=== PATIENT | female | born 1955 | race Caucasian/White ===

== ENCOUNTER 2019-10-29 09:46 | Outpatient (RCR) | payer MEDICARE, SELFPAY | END 2019-11-02 00:01 | LOC: ONCMED 09:46 | PROVIDERS: Family Provider Family Medicine; Visit Provider Nurse Practitioner | DX: C92.10 Chronic myeloid leukemia, BCR/ABL-positive, not having achieved remission (principal); D69.59 Other secondary thrombocytopenia; D64.81 Anemia due to antineoplastic chemotherapy; T45.1X5A Adverse effect of antineoplastic and immunosuppressive drugs, initial encounter; K52.9 Noninfective gastroenteritis and colitis, unspecified; I10 Essential (primary) hypertension; E78.5 Hyperlipidemia, unspecified; E11.9 Type 2 diabetes mellitus without complications; N28.9 Disorder of kidney and ureter, unspecified; I25.10 Atherosclerotic heart disease of native coronary artery without angina pectoris; I35.0 Nonrheumatic aortic (valve) stenosis; Z95.2 Presence of prosthetic heart valve ==

== ENCOUNTER 2019-11-18 11:35 | Outpatient (RCR) | payer MEDICARE, SELFPAY ==
[2019-11-11 14:27] LABS: Basophils % 0.3 %; Eosinophils # 0.4 10^3/uL (0.0-0.8); Eosinophils % 4.4 %; Hematocrit 31.4 % (37.0-47.0); Hemoglobin 10.5 g/dL (11.5-15.3); Lymphocytes # 3.9 10^3/uL (0.8-4.8); Lymphocytes % 42.8 %; Mean Corpuscular HGB Conc 33.4 g/dL (30.0-36.0); Mean Corpuscular Hemoglobin 32.5 pg (28.0-34.0); Mean Corpuscular Volume 97.2 fL (81-99); Mean Platelet Volume 9.6 fL (7.4-10.4); Monocytes # 0.8 10^3/uL (0.2-0.9); Monocytes % 8.9 %; Neutrophils # 3.9 10^3/uL (1.8-7.7); Neutrophils % 43.4 %; Nucleated Red Blood Cells % 0 %; Platelet Count 105 10^3/cmm (130-400); Red Blood Count 3.23 10^6/uL (4.1-5.3); Red Cell Distribution Width 12.9 % (12.1-15.1); White Blood Count 9.1 10^3/uL (4.0-10.0)
[2019-11-18 13:24] LABS: Basophils % 0.4 %; Eosinophils # 0.6 10^3/uL (0.0-0.8); Eosinophils % 5.6 %; Hematocrit 32.6 % (37.0-47.0); Hemoglobin 11.1 g/dL (11.5-15.3); Lymphocytes # 4.4 10^3/uL (0.8-4.8); Lymphocytes % 44.6 %; Mean Corpuscular Hemoglobin 33.8 pg (28.0-34.0); Mean Corpuscular Volume 99.4 fL (81-99); Monocytes # 0.9 10^3/uL (0.2-0.9); Monocytes % 9.1 %; Neutrophils % 40.2 %; Nucleated Red Blood Cells % 0 %; Platelet Count 119 10^3/cmm (130-400); Red Blood Count 3.28 10^6/uL (4.1-5.3); Red Cell Distribution Width 12.9 % (12.1-15.1); White Blood Count 9.9 10^3/uL (4.0-10.0)
== END 2019-12-03 23:59 | disposition home or self-care (01) ==
LOC: ONCMED 11:35
PROVIDERS: Family Provider Family Medicine; PCP Family Medicine; Visit Provider Nurse Practitioner
DX: C92.10 Chronic myeloid leukemia, BCR/ABL-positive, not having achieved remission (principal)
CPT/HCPCS: 85025

== ENCOUNTER 2020-06-21 06:39 | Outpatient (CLI) | payer MEDICARE, SELFPAY ==
--- NOTE | 2020-06-21 07:01 | USCV_ITS ---
Mitzi Gutierrez Age: 65 Gender: F : 1955 Exam Date: 06/21/2020 07:33 Ordering Phys: Eber Cheema MD ([email or web address]) Technologist: Suzette Riley Exam Location: [facility] – [place] Indication: AO VALVE REPLACED BP: 120 / 60 HR: 62 Rhythm: Sinus Technical Quality: Adequate MEASUREMENTS (Male / Female) Normal Values 2D ECHO LV Diastolic Diameter PLAX 3.4 cm 4.2 - 5.9 / 3.9 - 5.3 cm LV Systolic Diameter PLAX 2.0 cm LV Chamber Size 2.7 cm IVS Diastolic Thickness 1.2 cm 0.6 - 1.0 / 0.6 - 0.9 cm IVS Systolic Thickness 1.6 cm LVPW Diastolic Thickness 1.3 cm 0.6 - 1.0 / 0.6 - 0.9 cm LVPW Systolic Thickness 1.3 cm RV Chamber Size 2.1 cm LVOT Diameter 2.0 cm LV Ejection Fraction 2D Teich 73.8 % LV Ejection Fraction MOD 2C 49.3 % LV Ejection Fraction 2C AL 50.1 % LA Diameter 4.2 cm LA Width 2.1 cm LA Height 4.0 cm RA Width 2.6 cm RA Height 4.0 cm Aorta at Sinotubular Diameter 2.4 cm M-MODE LV Diastolic Diameter MM 3.8 cm 4.2 - 5.9 / 3.9 - 5.3 cm LV Systolic Diameter MM 2.5 cm LV Ejection Fraction MM Teich 62.8 % IVS Diastolic Thickness MM 0.9 cm 0.6 - 1.0 / 0.6 - 0.9 cm IVS Systolic Thickness MM 1.3 cm LVPW Diastolic Thickness MM 1.1 cm 0.6 - 1.0 / 0.6 - 0.9 cm LVPW Systolic Thickness MM 1.5 cm RV Diastolic Diameter MM 1.6 cm Aortic Annulus Diameter 2.3 cm LA Ao Ratio MM 1.5 MV E Point Septal Separation 0.2 cm DOPPLER AV Peak Velocity 80.0 cm/s LVOT Peak Velocity 74.0 cm/s AV Area Cont Eq vti 2.7 cm squared AV Area Cont Eq pk 3.0 cm squared MV Area PHT 3.0 cm squared Mitral E to A Ratio 1.3 MV E' Velocity 9.0 cm/s Mitral E to MV E' Ratio 19.0 Mitral E to LV E' Lateral Ratio 16.2 Mitral E to LV E' Septal Ratio 23.0 TR Peak Velocity 188.2 cm/s TR Peak Gradient 14.2 mmHg TR Mean Velocity 132.7 cm/s TR Mean Gradient 7.7 mmHg TR Velocity Time Integral 68.0 cm TV Peak E Velocity 70.0 cm/s Right Atrial Pressure 3.0 mmHg Pulmonary Artery Systolic Pressu 17.2 mmHg PV Peak Velocity 51.0 cm/s RV Acceleration Time 0.2 s RV Ejection Time 0.4 s RV AcT/ET 0.6 FINDINGS Left Ventricle Normal left ventricular cavity size. Normal left ventricular systolic function. No regional wall motion abnormalities. Left ventricular ejection fraction is estimated at 55 %. Grade II/IV diastolic dysfunction, moderately elevated filling pressures. Right Ventricle The right ventricle is normal in size and function. Right Atrium The right atrium is normal in size. Left Atrium The left atrium is normal in size. Mitral Valve Moderately thickened mitral valve. No mitral valve stenosis. Moderate mitral valve regurgitation. Aortic Valve Moderate aortic valve calcification. No aortic valve stenosis. Mild aortic valve regurgitation. Tricuspid Valve Moderate tricuspid valve regurgitation. Pulmonic Valve Structurally normal pulmonic valve without significant stenosis. There is no pulmonic regurgitation. Pericardium Normal pericardium without effusion. Aorta Normal ascending aorta dimension. CONCLUSIONS 1-Normal left ventricular cavity size. Normal left ventricular systolic function. No regional wall motion abnormalities. Left ventricular ejection fraction is estimated at 55 %. Grade II/IV diastolic dysfunction, moderately elevated filling pressures. 2-Moderately thickened mitral valve. No mitral valve stenosis. Moderate mitral valve regurgitation. 3-Moderate aortic valve calcification. No aortic valve stenosis. Mild aortic valve regurgitation. 4-Moderate tricuspid valve regurgitation. 5-There is no pericardial effusion. 6-Pulmonary artery systolic pressure is within normal limits. 7-Right atrial pressure is around 5 mm of mercury. 8-No significant change since the prior echocardiogram study of 07/13/2015. Eber Cheema MD (Electronically Signed) Final Date: 21 June 2020 18:45 S
== END 2020-06-21 06:40 | disposition home or self-care (01) ==
PROVIDERS: PCP Family Medicine; Visit Provider Internal Medicine Cardiovascular Disease
DX: Z95.2 Presence of prosthetic heart valve (principal); I08.3 Combined rheumatic disorders of mitral, aortic and tricuspid valves
CPT/HCPCS: 93306

== ENCOUNTER 2020-09-25 12:35 | Outpatient (CLI) | payer MEDICARE, SELFPAY ==
[2020-09-25 13:45] LABS: Basophils % 0.2 %; Eosinophils # 0.4 10^3/uL (0.0-0.8); Eosinophils % 4.2 %; Hematocrit 32.7 % (37.0-47.0); Hemoglobin 10.6 g/dL (11.5-15.3); Lymphocytes % 56.3 %; Mean Corpuscular HGB Conc 32.4 g/dL (30.0-36.0); Mean Corpuscular Hemoglobin 30.2 pg (28.0-34.0); Mean Corpuscular Volume 93.2 fL (81-99); Mean Platelet Volume 8.9 fL (7.4-10.4); Monocytes # 0.9 10^3/uL (0.2-0.9); Monocytes % 10.5 %; Neutrophils # 2.52 10^3/uL (1.8-7.7); Neutrophils % 28.6 %; Nucleated Red Blood Cells % 0 %; Platelet Count 125 10^3/cmm (130-400); Red Blood Count 3.51 10^6/uL (4.1-5.3); Red Cell Distribution Width 14.5 % (12.1-15.1); White Blood Count 8.8 10^3/uL (4.0-10.0)
[2020-09-25 14:06] LABS: Alanine Aminotransferase 42 U/L (0-33); Alkaline Phosphatase 94 IU/L (35-105); Anion Gap 13.2 (5-19); Aspartate Amino Transferase 39 U/L (0-32); Blood Urea Nitrogen 20 mg/dL (8-23); Calcium 8.7 mg/dL (8.5-10.5); Carbon Dioxide 27 mmol/L (22-29); Chloride 102 mmol/L (98-107); Globulin 2.3 g/dL (1.3-4.6); Glomerular Filtration Rate 45.1 mL/min (90-130); Glucose 202 mg/dL (65-115); Osmolality Calculated 294 mOsm/kg (285-295); Potassium 4.2 mmol/L (3.5-5.1); Sodium 138 mmol/L (136-145); Total Bilirubin 0.4 mg/dL (0.15-1.2); Total Protein 6.3 g/dL (6.6-8.7)
[2020-09-30 16:22] LABS: BCR ABL1 (IS) 0.006 %; P210 BCR ALB1 Detected; Prior Results See Report
== END 2020-09-25 12:36 | disposition home or self-care (01) ==
LOC: ONCMED 13:37
PROVIDERS: PCP Family Medicine; Visit Provider Internal Medicine Medical Oncology
DX: C92.10 Chronic myeloid leukemia, BCR/ABL-positive, not having achieved remission (principal); Z51.81 Encounter for therapeutic drug level monitoring; Z79.899 Other long term (current) drug therapy
CPT/HCPCS: 80053; 81206; 85025

== ENCOUNTER 2020-09-26 13:40 | Outpatient (CLI) | payer MEDICARE, SELFPAY ==
--- NOTE | 2020-09-30 21:26 | ONC FU_ITS ---
[facility] Patient Note Patient: Mitzi Gutierrez Unit #: [id number]: 1955 Dictated By: Neva DockeryDate of Visit: Sep 26, 2020 Onc MED Follow-Up/Prog Note Chief Complaint: Chronic myeloid leukemia. History of Present Illness: Ms Gutierrez is a 65 year-old woman with Meigs chromosome positive chronic myeloid leukemia. She had scheduled laboratory studies with Dr. Collins on 03/04/2019. Her CBC showed normal hemoglobin at 13.4 g with hematocrit 40.6%. The WBC was elevated at 47,600. The differential included 43% neutrophils, 19% bands, 13% metamyelocytes, 5% myelocytes, 1% promyelocytes, 7% lymphocytes, 1% monocytes, 7% eosinophils, 3% basophils, and 1% blasts. The platelet count was mildly elevated 517,000. The differential report also included presence of giant platelets. Her comprehensive metabolic profile showed borderline renal function with BUN 26 and creatinine 1.28 mg/dL. Bilirubin was normal at 0.7 mg/dL with normal liver enzymes. Dr Leger had seen her initially on 03/12/2019. A FISH study was positive for BCR/abl. Bone marrow aspiration/biopsy on 04/08/2019 was consistent with chronic myeloid leukemia. The marrow was hypercellular at 100%. On the chromosome analysis the Meigs chromosome was present in 65% of metaphase cells analyzed. The quantitative PCR for BCR/abl was 50.224%. She began treatment with hydroxyurea and alloupurinol. The hydroxyurea was put on hold as of 04/15/2019 at which point her white blood cell count had decreased to 1200. Her hemoglobin was down slightly, to 11.2 g. The platelet count had decreased to 313,000. She also stopped the allopurinol due to development of a skin eruption. During subsequent follow-up there was gradual recovery of her blood counts. As of 05/17/2019 the hemoglobin was back up to 12.7 g with white blood cell count normal at 9400 and platelet count mildly elevated at 442,000. During this time, we had initiated the process of getting her started on treatment with nilotinib, subject to verification of insurance coverage. In the meantime, after reviewing some literature, she had indicated that she was uncertain about taking the medication, and the process was put on hold. However, she eventually did opt to proceed with treatment. Her other medical illnesses include hypertension, hyperlipidemia, type II diabetes, coronary artery disease, and aortic stenosis. She underwent bioprosthetic aortic valve replacement and triple bypass in 2014. She also has a history of chronic diarrhea. She is a nonsmoker. INTERIM HISTORY: She began nilotinib 300 mg twice a day on 06/15/2019. She stopped it on the 2nd day due to severe nausea/vomiting. She says she was never so sick in her life. She then restarted the nilotinib at 150 mg twice a day. Initially she was able to tolerate it, but she had to stop it again when she developed a skin eruption involving her face, chest, and back. The rash subsequently improved, and at that point Dr Leger had her restart the hydroxyurea at 500 mg daily. As of 08/18/2019 she stopped hydroxyurea and began treatment with desatinib 70 mg daily. She tolerated it well overall. However her hemoglobin and platelets had been consistently dropping. She was last seen for followup October 14, 2019. She did not make her follow-ups before the Covid pandemic occurred and states that she has been afraid to get out since then. She was required to be seen due to to continuing to refill her medications. She is here today for followup visit. She has no new complaints. She states overall she is feeling good. She states that she may be a low bit more tired than normal but still does all her ADLs with no problems. She states that she does continue taking the Sprycel but skips every 3 days or so because it is wears her out makes her weak and draggy. She states she misses at least 1 day a week. She denies any fever or chills. She denies any signs or symptoms of infection. She has had no known Covid exposure. She denies any current Covid test pending. She states that her bowels are normal for her. She is had no nausea or vomiting. She denies any urinary tract symptoms. She denies any neuropathy. She states that she has had no further rashes. She denies mouth sores, sore throat or difficulty swallowing. Overall she states that she thinks she is doing really good. Her ECOG is 1. Past Medical History: Chronic diarrhea Coronary artery disease and aortic stenosis Hyperlipidemia Hypertension Type II diabetes Past Surgical History: section in 1978 and in 1982 Hysterectomy Partial colectomy for diverticulitis approximately 2000 Bio prosthetic aortic valve replacement and triple bypass in 2014 Excision of basal cell skin cancer in 2014 Allergies: Allopurinol, Codeine Sulfate, Isosorbide Mononitrate, and Plavix. Medications: Atenolol 1 Tablet (of 50 mg) Oral at bedtime Atorvastatin Calcium 1 Tablet (of 20 mg) Oral daily glyBURIDE 0.5 - 1 Tablet (of 5 mg) Oral b.i.d. hydroCHLOROthiazide 1 Tablet (of 25 mg) Oral daily Potassium Chloride ER 1 Tablet (of 10 meq) Tablet, controlled release Oral daily Sprycel 1 Tablet (of 50 mg) Oral daily Family History: Ms. Gutierrez's mother at age 60: liver cancer. Ms. Gutierrez's father at age 87: trauma cerebral hemorrhage. Her paternal grandmother is : breast cancer. Ms. Gutierrez has 1 sister who is : lung cancer. Her father at age 87. At that time he apparently had been diagnosed with TB, but he of traumatic cerebral hemorrhage. Mother at age 60 with cancer in her liver, possibly from the stomach. A sister of lung cancer at age 60. Her paternal grandmother and a paternal aunt had breast cancer. A paternal uncle had pancreatic cancer and another had lung cancer. A daughter at age 31 with complications from renal failure. Social History: Ms. Gutierrez is . Ms. Gutierrez has never smoked. She has no history of drinking. She is a nonsmoker. She does not drink alcohol. Review Of Symptoms: Constitutional Denies fevers, chills, night sweats or weight loss. She is having fatigue with Sprycel but states she is managing it and it is not affecting her ADLs. Allergic/Immunologic No reactions. Eyes Denies significant visual changes. No diplopia. No amaurosis. ENMT Denies changes in hearing, sore throat, mouth sores, difficulty or changes in swallowing ability, and/or sinus drainage. Endocrine No diabetes, thyroid disease or hormone replacement. Denies hot flashes or night sweats. Hematologic/Lymphatic Denies easy bruising or bleeding. The patient denies any tender or palpable lymph nodes. Respiratory Denies dyspnea on exertion, chest pain, cough or hemoptysis. Denies orthopnea. Cardiovascular Denies anginal chest pain, palpitations or orthopnea. Gastrointestinal Denies nausea, vomiting, diarrhea, GI bleeding, or constipation. Denies change in bowel habits and/or stool color, no heartburn or early satiety. Genitourinary (F) No hematuria, hesitancy, incontinence, vaginal bleeding, discharge or other problems with urination. Musculoskeletal Denies joint pain, swelling or redness. No decreased range of motion. Integumentary Denies chronic rashes, inflammation, ulcerations or skin changes. Neurologic Denies headache, blurred vision, and no areas of focal weakness or numbness. Normal gait. No sensory problems. Psychiatric Denies insomnia, depression, alisa or mood swings. Vital Signs: Performed on Sep 26, 2020 14:31 Height - 58.00 in Weight - 112.6 lbs (LOW) BSA - 1.43 sq.m BMI - 23.53 Temperature - 98.5 F Pulse - 67 /min Respiration - 16 /min BP - 100/68 mm(hg) O2 Sat - 97 % Pain - 0,1 - No physically strenuous activity, but ambulatory and able to carry out light or sedentary work (e.g. office work, light house work). (ECOG) Physical Examination: Constitutional Alert, oriented, no acute distress. Skin pink, warm and dry. Head Normocephalic; atraumatic. Eyes Conjunctivae and sclerae are clear and without icterus. Pupils are reactive and equal. ENMT No oral exudates, ulcers, masses, thrush or mucositis. Oropharynx clear. Tongue normal. Neck Supple without masses or thyromegaly. No jugular venous distension. Hematologic/Lymphatic No petechiae or purpura. No cervical, supraclavicular or axillary adenopathy noted. Respiratory Lungs are clear to auscultation without rhonchi or wheezing. Cardiovascular Regular rate and rhythm of heart without murmurs,clicks, gallops or rubs. Abdomen Non-tender, non-distended, no masses, ascites. Good bowel sounds noted in all quads. No guarding or rebound tenderness. No pulsatile masses. Back/Spine Non-tender to palpation. Extremities No visible deformities, no cyanosis, clubbing or edema. Musculoskeletal No tenderness or swelling, normal range of motion without obvious weakness. Integumentary No rashes or lesions. Neurologic No sensory or motor deficits, normal cerebellar function. Psychiatric Alert and oriented times three. Coherent speech. Verbalizes understanding of our discussions today. Laboratory:Test performed on Sep 25, 2020 12:35 Sodium 138 mmol/L Potassium 4.2 mmol/L Chloride 102 mmol/L CO2 27 mmol/L Anion Gap 13.2 BUN 20 mg/dL Creatinine 1.2 mg/dL Cr Clearance (Est) 38.4200 mL/min eGFR 45.1 mL/min Glucose 202 mg/dL Osmolality - Calculated 294 mOsm/kg Calcium 8.7 mg/dL Protein, Total 6.3 g/dL Albumin 4.0 g/dL Globulin 2.3 g/dL Bilirubin, Total 0.4 mg/dL ALT (SGPT) 42 U/L AST (SGOT) 39 U/L Alkaline Phosphatase 94 IU/L WBC 8.8 10 3/uL RBC 3.51 10 6/uL HGB 10.6 g/dL HCT 32.7 % MCV 93.2 fL MCH 30.2 pg MCHC 32.4 g/dL RDW 14.5 % Platelet Count 125 10 3/cmm MPV 8.9 fL Neutrophils 2.52 10 3/uL Lymphocytes 5.0 10 3/uL Monocytes 0.9 10 3/uL Eosinophils 0.4 10 3/uL Basophils 0.0 10 3/uL Neutrophil % 28.6 % Lymphocyte % 56.3 % Monocyte % 10.5 % Eosinophil % 4.2 % Basophils % 0.2 % NRBC % 0 % Impression: 1. Patient with Meigs chromosome positive chronic myeloid leukemia, confirmed by bone marrow aspiration/biopsy in 04/08/2019. 2. She has chronic diarrhea. A specific cause for that has not been determined. Her other medical illnesses include: 3. Hypertension. 4. Hyperlipidemia. 5. Type II diabetes. 6. She also appears to have chronic kidney disease. 7. She has coronary disease and aortic stenosis. She underwent bypass prosthetic aortic valve replacement and triple vessel bypass in 2014. She had started treatment with hydroxyurea and allopurinol on 04/01/2019. Her treatment was put on hold as of 04/15/2019 at which point her white blood cell count had decreased to 1200. The allopurinol was put on hold due to a skin eruption. During subsequent follow-up there was gradual recovery of her blood count. As of 05/17/2019 the hemoglobin was back up to 12.7 g with white blood cell count 9400 and platelet count mildly elevated at 442,000. On 06/15/2019 she began treatment with nilotinib 300 mg twice a day. She stopped treatment on day 2 due to severe nausea/vomiting. The symptoms improved, and she restarted nilotinib 150 mg twice a day. Initially she was able to tolerate it with acceptable toxicity. However, she then had to stop and begin when she developed fairly generalized skin eruption. The rash subsequently resolved, and she restarted hydroxyurea 500 mg daily. On 08/18/2019 she began 2nd line TKI therapy with desatinib at 70 mg daily. She has been tolerating it well, but she is now mildly anemic and she also has mild thrombocytopenia. It is uncertain to what extent that may be related to treatment or to the underlying CML. She has had further decline in her HHgb and platelets. Her dose was decreased to 50 mg daily. Ms Gutierrez has not been in for an office visit with us since 10-14-2019. Her last labs were 11/18/2019. Plan: 1. Continue dasatinib 50 mg daily???or as she is currently taking it. 2. Labs from 09/25/2020 were reviewed in detail discussed with Mrs. Gutierrez and a copy was given to her. White count 8.8, hemoglobin 10.6, platelets are 25,000 ANC is 2520. Potassium 4.2 random glucose 202 creatinine 1.2 ALT is 42 AST is 39 alk phos is 94. Her LFTs are actually improved from her compared to her October 12, 2019 labs. Her BCR/ABL is pending at visit. 3. We will tentatively plan to see her back in 6 months with CBC CMP BCR/ABL. She is aware this is a subject to change depending on the pending BCR/ABL lab. 4. Ms. Gutierrez was directed to contact us in the interim should questions or problems arise. Signed By: Neva Dockery-, [facility] Lawrence Leger MD <<Signature on File>>
== END 2020-09-26 13:41 | disposition home or self-care (01) ==
LOC: ONCMED 13:43
PROVIDERS: PCP Family Medicine; Visit Provider Nurse Practitioner
DX: C92.10 Chronic myeloid leukemia, BCR/ABL-positive, not having achieved remission (principal); D64.9 Anemia, unspecified; D69.6 Thrombocytopenia, unspecified; K52.9 Noninfective gastroenteritis and colitis, unspecified; I10 Essential (primary) hypertension; E78.5 Hyperlipidemia, unspecified; E11.9 Type 2 diabetes mellitus without complications; I25.10 Atherosclerotic heart disease of native coronary artery without angina pectoris; Z95.1 Presence of aortocoronary bypass graft; Z79.899 Other long term (current) drug therapy; Z79.84 Long term (current) use of oral hypoglycemic drugs
CPT/HCPCS: 99214

== ENCOUNTER 2021-03-28 12:14 | Outpatient (CLI) | payer MEDICARE, SELFPAY ==
[2021-03-28 12:53] LABS: Basophils % 0.6 %; Eosinophils # 0.4 10^3/uL (0.0-0.8); Eosinophils % 5.8 %; Hematocrit 33.9 % (37.0-47.0); Hemoglobin 11.1 g/dL (11.5-15.3); Lymphocytes # 3.1 10^3/uL (0.8-4.8); Lymphocytes % 49.7 %; Mean Corpuscular HGB Conc 32.7 g/dL (30.0-36.0); Mean Corpuscular Hemoglobin 30.5 pg (28.0-34.0); Mean Corpuscular Volume 93.1 fL (81-99); Mean Platelet Volume 8.9 fL (7.4-10.4); Monocytes # 0.6 10^3/uL (0.2-0.9); Monocytes % 9.6 %; Neutrophils # 2.13 10^3/uL (1.8-7.7); Nucleated Red Blood Cells % 0 %; Platelet Count 128 10^3/cmm (130-400); Red Blood Count 3.64 10^6/uL (4.1-5.3); Red Cell Distribution Width 14.4 % (12.1-15.1); White Blood Count 6.3 10^3/uL (4.0-10.0)
[2021-03-28 13:17] LABS: Alanine Aminotransferase 23 U/L (0-33); Alkaline Phosphatase 61 IU/L (35-105); Anion Gap 11.1 (5-19); Aspartate Amino Transferase 34 U/L (0-32); Blood Urea Nitrogen 22 mg/dL (8-23); Calcium 8.8 mg/dL (8.5-10.5); Carbon Dioxide 27 mmol/L (22-29); Chloride 103 mmol/L (98-107); Globulin 2.6 g/dL (1.3-4.6); Glomerular Filtration Rate 45.1 mL/min (90-130); Glucose 87 mg/dL (65-115); Osmolality Calculated 287 mOsm/kg (285-295); Potassium 4.1 mmol/L (3.5-5.1); Sodium 137 mmol/L (136-145); Total Bilirubin 0.4 mg/dL (0.15-1.2); Total Protein 6.6 g/dL (6.6-8.7)
--- NOTE | 2021-03-31 18:53 | ONC FU_ITS ---
Dr. Leger Patient Follow-Up Note Patient: Mitzi Gutierrez Unit #: [id number]: 1955 Dicatated By: Lawrence Leger M.D.Date of Visit:March 28, 2021 Onc Med Follow-up/Prog Note Chief Complaint: Chronic myeloid leukemia. History of Present Illness: This is a 65 year-old woman with [place] chromosome positive chronic myeloid leukemia. She had scheduled laboratory studies with Dr. Collins on 03/04/2019. Her CBC showed normal hemoglobin at 13.4 g with hematocrit 40.6%. The WBC was elevated at 47,600. The differential included 43% neutrophils, 19% bands, 13% metamyelocytes, 5% myelocytes, 1% promyelocytes, 7% lymphocytes, 1% monocytes, 7% eosinophils, 3% basophils, and 1% blasts. The platelet count was mildly elevated 517,000. The differential report also included presence of giant platelets. Her comprehensive metabolic profile showed borderline renal function with BUN 26 and creatinine 1.28 mg/dL. Bilirubin was normal at 0.7 mg/dL with normal liver enzymes. I had seen her initially on 03/12/2019. A FISH study was positive for BCR/abl. Bone marrow aspiration/biopsy on 04/08/2019 was consistent with chronic myeloid leukemia. The marrow was hypercellular at 100%. On the chromosome analysis the [place] chromosome was present in 65% of metaphase cells analyzed. The quantitative PCR for BCR/abl was 50.224%. She began treatment with hydroxyurea and alloupurinol. The hydroxyurea was put on hold as of 04/15/2019 at which point her white blood cell count had decreased to 1200. Her hemoglobin was down slightly, to 11.2 g. The platelet count had decreased to 313,000. She also stopped the allopurinol due to development of a skin eruption. During subsequent follow-up there was gradual recovery of her blood counts. As of 05/17/2019 the hemoglobin was back up to 12.7 g with white blood cell count normal at 9400 and platelet count mildly elevated at 442,000. During this time, we had initiated the process of getting her started on treatment with nilotinib, subject to verification of insurance coverage. In the meantime, after reviewing some literature, she had indicated that she was uncertain about taking the medication, and the process was put on hold. However, she eventually did opt to proceed with treatment. She began nilotinib 300 mg twice a day on 06/15/2019. She stopped it on the 2nd day due to severe nausea/vomiting. She said she was never so sick in her life. She then restarted the nilotinib at 150 mg twice a day. Initially she was able to tolerate it, but she had to stop it again when she developed a skin eruption involving her face, chest, and back. The rash subsequently improved, and at that point I had her restart the hydroxyurea at 500 mg daily. As of 08/18/2019 she stopped hydroxyurea and began treatment with desatinib 70 mg daily. During followup she did have some fatigue, but she was able to tolerate treatment with acceptable toxicity. As of October 2019 her treatment was put on hold due to anemia and thrombocytopenia. It subsequently was restarted with the dosage reduced to 50 mg daily. As of September 2020 her quantitative PCR for BCR/abl was still detectable, but only at 0.006%. She continued dasatinib at 50 mg daily. Her other medical illnesses include hypertension, hyperlipidemia, type II diabetes, coronary artery disease, and aortic stenosis. She underwent bioprosthetic aortic valve replacement and triple bypass in 2014. She also has a history of chronic diarrhea. She is a nonsmoker. INTERIM HISTORY: She is seen for a follow-up visit. She continues to complain that she feels tired, but she is able to do light housework. ECOG score is 1. She has good appetite. She has no fever or night sweats. She recently had treatment for sinus infection, but that has improved with antibiotic therapy. She has had no mouth sores. She had cough with the sinus infection, but that is better now. She does not complain of shortness of breath or chest pain. She has had constipation, but she is managing it adequately with a laxative. She has no other GI or complaints. She has no significant joint or bone pain. She does not complain of headache. She sometimes has dizziness. She has no numbness/paresthesia or other focal neurologic symptoms. Medications: Atenolol 1 Tablet (of 50 mg) Oral at bedtime, Atorvastatin Calcium 1 Tablet (of 20 mg) Oral daily, glyBURIDE 0.5 - 1 Tablet (of 5 mg) Oral b.i.d., hydroCHLOROthiazide 1 Tablet (of 25 mg) Oral daily, Potassium Chloride ER 1 Tablet (of 10 meq) Tablet, controlled release Oral daily, Sprycel 1 Tablet (of 50 mg) Oral daily Allergies: Allopurinol, Codeine Sulfate, Isosorbide Mononitrate, and Plavix. Vital Signs: Performed on March 28, 2021 13:55 Height - 58.00 in Weight - 118.2 lbs (HIGH) BSA - 1.46 sq.m BMI - 24.70 Temperature - 98.4 F Pulse - 82 /min Respiration - 18 /min BP - 100/80 mm(hg) O2 Sat - 98 % Pain - 0 Fatigue - 6 Physical Examination: Constitutional - She looks pretty good generally, Eyes - Sclerae nonicteric. Conjunctivae clear, ENMT - No lesions noted in the oral cavity, Hematologic/Lymphatic - No cervical, clavicular, or axillary adenopathy, Respiratory - Lungs are clear with good air movement bilaterally, Cardiovascular - Heart rhythm is irregular. There is a II/ systolic murmur. There is no gallop or rub noted, Abdomen - Soft. Liver and spleen are not enlarged. There is no abdominal mass or ascites noted and there is no inguinal adenopathy, Extremities - No edema, Neurologic - No focal neurologic deficits noted. Lab/Imaging: Test performed on March 28, 2021 12:29 Sodium 137 mmol/L Potassium 4.1 mmol/L Chloride 103 mmol/L CO2 27 mmol/L Anion Gap 11.1 BUN 22 mg/dL Creatinine 1.2 mg/dL Cr Clearance (Est) 39.56 mL/min eGFR 45.1 mL/min Glucose 87 mg/dL Osmolality - Calculated 287 mOsm/kg Calcium 8.8 mg/dL Protein, Total 6.6 g/dL Albumin 4.0 g/dL Globulin 2.6 g/dL Bilirubin, Total 0.4 mg/dL ALT (SGPT) 23 U/L AST (SGOT) 34 U/L Alkaline Phosphatase 61 IU/L WBC 6.3 10 3/uL RBC 3.64 10 6/uL HGB 11.1 g/dL HCT 33.9 % MCV 93.1 fL MCH 30.5 pg MCHC 32.7 g/dL RDW 14.4 % Platelet Count 128 10 3/cmm MPV 8.9 fL Neutrophils 2.13 10 3/uL Lymphocytes 3.1 10 3/uL Monocytes 0.6 10 3/uL Eosinophils 0.4 10 3/uL Basophils 0.0 10 3/uL Neutrophil % 34.0 % Lymphocyte % 49.7 % Monocyte % 9.6 % Eosinophil % 5.8 % Basophils % 0.6 % NRBC % 0 % Problem List: 1. [place] chromosome positive chronic myeloid leukemia, confirmed by bone marrow aspiration/biopsy in 04/08/2019. 2. Hypertension. 3. Hyperlipidemia. 4. Type II diabetes. 5. She also appears to have chronic kidney disease. 6. She has coronary disease and aortic stenosis. She underwent bypass prosthetic aortic valve replacement and triple vessel bypass in 2014. Problems Addressed with this Encounter and Plan: Patient with [place] chromosome positive chronic myeloid leukemia, confirmed by bone marrow aspiration/biopsy in 04/08/2019. She was initially treated with hydroxyurea and allopurinol. In June 2019 she began treatment with nilotinib 300 mg twice a day. She stopped treatment on day 2 due to severe nausea/vomiting. The symptoms improved, and she restarted nilotinib 150 mg twice a day. Initially she was able to tolerate it with acceptable toxicity. However, within a short time she had to stop treatment due to a fairly generalized skin eruption. On 08/18/2019 she began 2nd line TKI therapy with desatinib at 70 mg daily. She tolerated it well initially. By October 2019 her treatment was put on hold due to anemia and thrombocytopenia. It was then restarted with the dosage reduced to 50 mg daily. She had a good clinical response. As of September 2020 her quantitative PCR for BCR/abl was still detectable, but only at 0.006%. She has since then continued to have some fatigue, but she is otherwise been able to tolerate the dasatinib well at the reduced dosage. She remains mildly anemic, but her platelet count is just borderline low. Her current PCR study is pending. In the absence of any significant increase, she will continue dasatinib at 50 mg daily and she will continue follow-up at a 3-month interval. Signed By: Lawrence Leger M.D. <<Signature on File>>
[2021-04-02 01:22] LABS: BCR ABL1 (IS) 0.019 (0.000); P190 BCR ALB1 NOT DETECTED; P210 BCR ALB1 DETECTED; Prior Results NG
== END 2021-03-28 12:15 | disposition home or self-care (01) ==
LOC: ONCMED 12:18
PROVIDERS: PCP Family Medicine; Visit Provider Internal Medicine Medical Oncology
DX: C92.10 Chronic myeloid leukemia, BCR/ABL-positive, not having achieved remission (principal); I10 Essential (primary) hypertension; E78.5 Hyperlipidemia, unspecified; E11.22 Type 2 diabetes mellitus with diabetic chronic kidney disease; N18.9 Chronic kidney disease, unspecified; E11.59 Type 2 diabetes mellitus with other circulatory complications; I25.10 Atherosclerotic heart disease of native coronary artery without angina pectoris; I35.0 Nonrheumatic aortic (valve) stenosis; Z95.5 Presence of coronary angioplasty implant and graft; Z79.899 Other long term (current) drug therapy
CPT/HCPCS: 80053; 81206; 85025; 99214

== ENCOUNTER 2021-07-02 10:44 | Outpatient (CLI) | payer MEDICARE, SELFPAY ==
[2021-07-02 11:37] LABS: Basophils % 0.2 %; Eosinophils # 0.4 10^3/uL (0.0-0.8); Eosinophils % 4.8 %; Hemoglobin 10.5 g/dL (11.5-15.3); Lymphocytes # 5.6 10^3/uL (0.8-4.8); Lymphocytes % 61.2 %; Mean Corpuscular HGB Conc 33.9 g/dL (30.0-36.0); Mean Corpuscular Hemoglobin 31.2 pg (28.0-34.0); Mean Platelet Volume 8.6 fL (7.4-10.4); Monocytes # 0.8 10^3/uL (0.2-0.9); Monocytes % 8.7 %; Neutrophils # 2.26 10^3/uL (1.8-7.7); Neutrophils % 24.8 %; Nucleated Red Blood Cells % 0 %; Platelet Count 128 10^3/cmm (130-400); Red Blood Count 3.37 10^6/uL (4.1-5.3); White Blood Count 9.2 10^3/uL (4.0-10.0)
[2021-07-02 12:02] LABS: Alanine Aminotransferase 13 U/L (0-33); Albumin Level 3.8 g/dL (3.5-5.2); Alkaline Phosphatase 76 IU/L (35-105); Anion Gap 14.2 (5-19); Aspartate Amino Transferase 27 U/L (0-32); Blood Urea Nitrogen 27 mg/dL (8-23); Calcium 8.6 mg/dL (8.5-10.5); Carbon Dioxide 25 mmol/L (22-29); Chloride 97 mmol/L (98-107); Glucose 127 mg/dL (65-115); Lactate Dehydrogenase 286 U/L (135-214); Osmolality Calculated 281 mOsm/kg (285-295); Potassium 4.2 mmol/L (3.5-5.1); Sodium 132 mmol/L (136-145); Total Bilirubin 0.4 mg/dL (0.15-1.2); Total Protein 6.8 g/dL (6.6-8.7)
[2021-07-05 22:52] LABS: BCR ABL1 (IS) 0.027 (0.000); P210 BCR ALB1 DETECTED; Prior Results NG; Source BLOOD
--- NOTE | 2021-07-06 16:01 | ONC FU_ITS ---
Dr. Leger Patient Follow-Up Note Patient: Mitzi Gutierrez Unit #: [id number]: 1955 Dicatated By: Lawrence Leger M.D.Date of Visit:Jul 02, 2021 Onc Med Follow-up/Prog Note Chief Complaint: Chronic myeloid leukemia. History of Present Illness: This is a 66 year-old woman with [place] chromosome positive chronic myeloid leukemia. She had scheduled laboratory studies with Dr. Collins on 03/04/2019. Her CBC showed normal hemoglobin at 13.4 g with hematocrit 40.6%. The WBC was elevated at 47,600. The differential included 43% neutrophils, 19% bands, 13% metamyelocytes, 5% myelocytes, 1% promyelocytes, 7% lymphocytes, 1% monocytes, 7% eosinophils, 3% basophils, and 1% blasts. The platelet count was mildly elevated 517,000. The differential report also included presence of giant platelets. Her comprehensive metabolic profile showed borderline renal function with BUN 26 and creatinine 1.28 mg/dL. Bilirubin was normal at 0.7 mg/dL with normal liver enzymes. I had seen her initially on 03/12/2019. A FISH study was positive for BCR/abl. Bone marrow aspiration/biopsy on 04/08/2019 was consistent with chronic myeloid leukemia. The marrow was hypercellular at 100%. On the chromosome analysis the [place] chromosome was present in 65% of metaphase cells analyzed. The quantitative PCR for BCR/abl was 50.224%. She began treatment with hydroxyurea and alloupurinol. The hydroxyurea was put on hold as of 04/15/2019 at which point her white blood cell count had decreased to 1200. Her hemoglobin was down slightly, to 11.2 g. The platelet count had decreased to 313,000. She also stopped the allopurinol due to development of a skin eruption. During subsequent follow-up there was gradual recovery of her blood counts. As of 05/17/2019 the hemoglobin was back up to 12.7 g with white blood cell count normal at 9400 and platelet count mildly elevated at 442,000. During this time, we had initiated the process of getting her started on treatment with nilotinib, subject to verification of insurance coverage. In the meantime, after reviewing some literature, she had indicated that she was uncertain about taking the medication, and the process was put on hold. However, she eventually did opt to proceed with treatment. She began nilotinib 300 mg twice a day on 06/15/2019. She stopped it on the 2nd day due to severe nausea/vomiting. She said she was never so sick in her life. She then restarted the nilotinib at 150 mg twice a day. Initially she was able to tolerate it, but she had to stop it again when she developed a skin eruption involving her face, chest, and back. The rash subsequently improved, and at that point I had her restart the hydroxyurea at 500 mg daily. As of 08/18/2019 she stopped hydroxyurea and began treatment with desatinib 70 mg daily. During followup she did have some fatigue, but she was able to tolerate treatment with acceptable toxicity. As of October 2019 her treatment was put on hold due to anemia and thrombocytopenia. It subsequently was restarted with the dosage reduced to 50 mg daily. As of September 2020 her quantitative PCR for BCR/abl was still detectable, but only at 0.006%. She continued dasatinib at 50 mg daily. Her other medical illnesses include hypertension, hyperlipidemia, type II diabetes, coronary artery disease, and aortic stenosis. She underwent bioprosthetic aortic valve replacement and triple bypass in 2014. She also has a history of chronic diarrhea. She is a nonsmoker. INTERIM HISTORY: She is seen for a follow-up visit. She has been feeling pretty good generally, though she says her energy is a little lower. She is able to do light work. ECOG score is 1. Her appetite is the same or perhaps a little worse. She does not have fever or night sweats. She has had no mouth sores. She has no shortness of breath, cough, or chest pain. She has some constipation, adequately managed with medication. She has no other GI or complaints. She gets stiff if she sits too long, but she has no significant musculoskeletal pain. She does not complain of headache. She sometimes has dizziness, which seems to be positional. She has no numbness/paresthesia or other focal neurologic symptoms. Medications: Atenolol 1 Tablet (of 50 mg) Oral at bedtime, Atorvastatin Calcium 1 Tablet (of 20 mg) Oral daily, glyBURIDE 0.5 - 1 Tablet (of 5 mg) Oral b.i.d., hydroCHLOROthiazide 1 Tablet (of 25 mg) Oral daily, Potassium Chloride ER 1 Tablet (of 10 meq) Tablet, controlled release Oral daily, Sprycel 1 Tablet (of 50 mg) Oral daily Allergies: Allopurinol, Codeine Sulfate, Isosorbide Mononitrate, and Plavix. Vital Signs: Performed on Jul 02, 2021 14:38 Height - 58.00 in Weight - 112.8 lbs (LOW) BSA - 1.43 sq.m BMI - 23.58 Temperature - 98.1 F (LOW) Pulse - 63 /min Respiration - 18 /min BP - 150/60 mm(hg) (HIGH) O2 Sat - 98 % Pain - 0 Fatigue - 6 Physical Examination: Constitutional - She looks pretty good generally, Eyes - Sclerae nonicteric. Conjunctivae clear, ENMT - No lesions noted in the oral cavity, Hematologic/Lymphatic - No cervical, clavicular, or axillary adenopathy, Respiratory - Lungs are clear with good air movement bilaterally, Cardiovascular - Heart rhythm is irregular. There is a II/ systolic murmur. There is no gallop or rub noted, Abdomen - Soft. Liver and spleen are not enlarged. There is no abdominal mass or ascites noted and there is no inguinal adenopathy, Extremities - Mild edema, Neurologic - No focal neurologic deficits noted. Lab/Imaging: Test performed on Jul 02, 2021 11:20 LDH (Total) 286 U/L Sodium 132 mmol/L Potassium 4.2 mmol/L Chloride 97 mmol/L CO2 25 mmol/L Anion Gap 14.2 BUN 27 mg/dL Creatinine 1.3 mg/dL Cr Clearance (Est) 34.38 mL/min eGFR 41.0 mL/min Glucose 127 mg/dL Osmolality - Calculated 281 mOsm/kg Calcium 8.6 mg/dL Protein, Total 6.8 g/dL Albumin 3.8 g/dL Globulin 3.0 g/dL Bilirubin, Total 0.4 mg/dL ALT (SGPT) 13 U/L AST (SGOT) 27 U/L Alkaline Phosphatase 76 IU/L WBC 9.2 10 3/uL RBC 3.37 10 6/uL HGB 10.5 g/dL HCT 31.0 % MCV 92.0 fl MCH 31.2 pg MCHC 33.9 g/dL RDW 14.0 % Platelet Count 128 10 3/cmm MPV 8.6 fL Neutrophils 2.26 10 3/uL Lymphocytes 5.6 10 3/uL Monocytes 0.8 10 3/uL Eosinophils 0.4 10 3/uL Basophils 0.0 10 3/uL Neutrophil % 24.8 % Lymphocyte % 61.2 % Monocyte % 8.7 % Eosinophil % 4.8 % Basophils % 0.2 % NRBC % 0 % BCR/ABL Source BLOOD BCR/ABL Previous Quant NG Problem List: 1. [place] chromosome positive chronic myeloid leukemia, confirmed by bone marrow aspiration/biopsy in 04/08/2019. 2. Hypertension. 3. Hyperlipidemia. 4. Type II diabetes. 5. She also appears to have chronic kidney disease. 6. She has coronary disease and aortic stenosis. She underwent bypass prosthetic aortic valve replacement and triple vessel bypass in 2014. Problems Addressed with this Encounter and Plan: Patient with [place] chromosome positive chronic myeloid leukemia, confirmed by bone marrow aspiration/biopsy in 04/08/2019. She was initially treated with hydroxyurea and allopurinol. In June 2019 she began treatment with nilotinib 300 mg twice a day. She stopped treatment on day 2 due to severe nausea/vomiting. The symptoms improved, and she restarted nilotinib 150 mg twice a day. Initially she was able to tolerate it with acceptable toxicity. However, within a short time she had to stop treatment due to a fairly generalized skin eruption. On 08/18/2019 she began 2nd line TKI therapy with desatinib at 70 mg daily. She tolerated it well initially. By October 2019 her treatment was put on hold due to anemia and thrombocytopenia. It was then restarted with the dosage reduced to 50 mg daily. She had a good clinical response. During follow-up her quantitative PCR for BCR/abl has remained detectable, but had a very low level, <0.03%. She continues to have some fatigue, but she otherwise has been doing well clinically. In the absence of any evidence of disease progression, she will continue dasatinib at 50 mg daily. I will see her again in 3 months. Signed By: Lawrence Leger M.D. <<Signature on File>>
== END 2021-07-02 10:45 | disposition home or self-care (01) ==
PROVIDERS: PCP Family Medicine; Visit Provider Internal Medicine Medical Oncology
DX: C92.10 Chronic myeloid leukemia, BCR/ABL-positive, not having achieved remission (principal); I25.10 Atherosclerotic heart disease of native coronary artery without angina pectoris; Z79.899 Other long term (current) drug therapy; Z95.5 Presence of coronary angioplasty implant and graft
CPT/HCPCS: 36415; 80053; 81206; 83615; 85025; 99214

== ENCOUNTER 2021-09-24 13:45 | Outpatient (CLI) | payer MEDICARE, SELFPAY ==
[2021-09-24 14:33] LABS: Basophils # 0.1 10^3/uL (0.0-0.1); Basophils % 0.5 %; Eosinophils # 0.5 10^3/uL (0.0-0.8); Eosinophils % 4.9 %; Hematocrit 32.3 % (37.0-47.0); Hemoglobin 11.2 g/dL (11.5-15.3); Lymphocytes # 6.4 10^3/uL (0.8-4.8); Lymphocytes % 60.8 %; Mean Corpuscular HGB Conc 34.7 g/dL (30.0-36.0); Mean Corpuscular Volume 89.5 fl (81-99); Mean Platelet Volume 9.2 fL (7.4-10.4); Monocytes # 0.9 10^3/uL (0.2-0.9); Monocytes % 8.2 %; Neutrophils # 2.67 10^3/uL (1.8-7.7); Neutrophils % 25.2 %; Nucleated Red Blood Cells % 0 %; Platelet Count 141 10^3/cmm (130-400); Red Blood Count 3.61 10^6/uL (4.1-5.3); Red Cell Distribution Width 13.5 % (12.1-15.1); White Blood Count 10.6 10^3/uL (4.0-10.0)
[2021-09-24 15:00] LABS: Alanine Aminotransferase 21 U/L (0-33); Albumin Level 3.9 g/dL (3.5-5.2); Alkaline Phosphatase 75 IU/L (35-105); Blood Urea Nitrogen 28 mg/dL (8-23); Calcium 8.5 mg/dL (8.5-10.5); Carbon Dioxide 22 mmol/L (22-29); Chloride 102 mmol/L (98-107); Globulin 2.5 g/dL (1.3-4.6); Glomerular Filtration Rate 37.6 mL/min (90-130); Glucose 105 mg/dL (65-115); Osmolality Calculated 288 mOsm/kg (285-295); Slide Review Slide Review Perform; Sodium 136 mmol/L (136-145); Total Bilirubin 0.4 mg/dL (0.15-1.2); Total Protein 6.4 g/dL (6.6-8.7)
[2021-09-24 15:03] LABS: Anion Gap 16.3 (5-19); Aspartate Amino Transferase 36 U/L (0-32); Potassium 4.3 mmol/L (3.5-5.1)
[2021-09-28 09:37] LABS: BCR ABL1 (IS) 0.018 (0.000); P210 BCR ALB1 DETECTED; Prior Results NG; Source serum
== END 2021-09-24 13:46 | disposition home or self-care (01) ==
LOC: ONCMED 13:47
PROVIDERS: PCP Family Medicine; Visit Provider Internal Medicine Medical Oncology
DX: C92.10 Chronic myeloid leukemia, BCR/ABL-positive, not having achieved remission (principal)
CPT/HCPCS: 36415; 80053; 81206; 85025

== ENCOUNTER 2021-10-03 14:14 | Outpatient (CLI) | payer MEDICARE, SELFPAY ==
--- NOTE | 2021-10-06 15:24 | ONC FU_ITS ---
Dr. Leger Patient Follow-Up Note Patient: Mitzi Gutierrez Unit #: [id number]: 1955 Dicatated By: Lawrence Leger M.D.Date of Visit:Oct 03, 2021 Onc Med Follow-up/Prog Note Chief Complaint: Chronic myeloid leukemia. History of Present Illness: This is a 66 year-old woman with [place] chromosome positive chronic myeloid leukemia. She had scheduled laboratory studies with Dr. Collins on 03/04/2019. Her CBC showed normal hemoglobin at 13.4 g with hematocrit 40.6%. The WBC was elevated at 47,600. The differential included 43% neutrophils, 19% bands, 13% metamyelocytes, 5% myelocytes, 1% promyelocytes, 7% lymphocytes, 1% monocytes, 7% eosinophils, 3% basophils, and 1% blasts. The platelet count was mildly elevated 517,000. The differential report also included presence of giant platelets. Her comprehensive metabolic profile showed borderline renal function with BUN 26 and creatinine 1.28 mg/dL. Bilirubin was normal at 0.7 mg/dL with normal liver enzymes. I had seen her initially on 03/12/2019. A FISH study was positive for BCR/abl. Bone marrow aspiration/biopsy on 04/08/2019 was consistent with chronic myeloid leukemia. The marrow was hypercellular at 100%. On the chromosome analysis the [place] chromosome was present in 65% of metaphase cells analyzed. The quantitative PCR for BCR/abl was 50.224%. She began treatment with hydroxyurea and alloupurinol. The hydroxyurea was put on hold as of 04/15/2019 at which point her white blood cell count had decreased to 1200. Her hemoglobin was down slightly, to 11.2 g. The platelet count had decreased to 313,000. She also stopped the allopurinol due to development of a skin eruption. During subsequent follow-up there was gradual recovery of her blood counts. As of 05/17/2019 the hemoglobin was back up to 12.7 g with white blood cell count normal at 9400 and platelet count mildly elevated at 442,000. During this time, we had initiated the process of getting her started on treatment with nilotinib, subject to verification of insurance coverage. In the meantime, after reviewing some literature, she had indicated that she was uncertain about taking the medication, and the process was put on hold. However, she eventually did opt to proceed with treatment. She began nilotinib 300 mg twice a day on 06/15/2019. She stopped it on the 2nd day due to severe nausea/vomiting. She said she was never so sick in her life. She then restarted the nilotinib at 150 mg twice a day. Initially she was able to tolerate it, but she had to stop it again when she developed a skin eruption involving her face, chest, and back. The rash subsequently improved, and at that point I had her restart the hydroxyurea at 500 mg daily. As of 08/18/2019 she stopped hydroxyurea and began treatment with desatinib 70 mg daily. During followup she did have some fatigue, but she was able to tolerate treatment with acceptable toxicity. As of October 2019 her treatment was put on hold due to anemia and thrombocytopenia. It subsequently was restarted with the dosage reduced to 50 mg daily. She continued to have significant fatigue even at the lower dosage, so that she would typically take it 3 to 4 days in a row and then skip a day. As of September 2020 her quantitative PCR for BCR/abl was still detectable, but only at 0.006%. She continued dasatinib at 50 mg daily, as tolerated. During further follow-up her PCR remained detectable, but still at very low titer. Her other medical illnesses include hypertension, hyperlipidemia, type II diabetes, coronary artery disease, and aortic stenosis. She underwent bioprosthetic aortic valve replacement and triple bypass in 2014. She also has a history of chronic diarrhea. She is a nonsmoker. INTERIM HISTORY: She is seen for a follow-up visit. She has continued to have significant fatigue. She also complains of increased shortness of breath and heart racing with activity. She has continued her pattern of skipping the dasatinib after taking it 3 or 4 days in a row. She is able to do light work. ECOG score is 1. She has good appetite. She has not had fever or night sweats. She complains that she is freezing all the time. She has just recently gotten over a head cold. She was having some cough with it, but that is better now. She does get pain radiating up into her neck, typically at night. She currently has no GI or complaints. She has no significant joint or bone pain. She does not complain of headache. She occasionally has dizziness. She has no numbness/paresthesia or other focal neurologic symptoms. Medications: Anti-Oxidant 1 Tablet Oral daily, Atenolol 1 Tablet (of 50 mg) Oral at bedtime, Atorvastatin Calcium 1 Tablet (of 20 mg) Oral daily, glyBURIDE 0.5 - 1 Tablet (of 5 mg) Oral b.i.d., hydroCHLOROthiazide 1 Tablet (of 25 mg) Oral daily, Potassium Chloride ER 1 Tablet (of 10 meq) Tablet, controlled release Oral daily, Sprycel 1 Tablet (of 50 mg) Oral daily Allergies: Allopurinol, Codeine Sulfate, Isosorbide Mononitrate, and Plavix. Vital Signs: Performed on Oct 03, 2021 15:35 Height - 58.00 in Weight - 114.6 lbs (HIGH) BSA - 1.44 sq.m BMI - 23.95 Temperature - 98.1 F (LOW) Pulse - 88 /min Respiration - 16 /min BP - 179/80 mm(hg) (HIGH) O2 Sat - 98 % Pain - 0 Fatigue - 8 Physical Examination: Constitutional - She looks pretty good generally, Eyes - Sclerae nonicteric. Conjunctivae clear, ENMT - No lesions noted in the oral cavity, Hematologic/Lymphatic - No cervical, clavicular, or axillary adenopathy, Respiratory - Lungs are clear with good air movement bilaterally, Cardiovascular - Heart rhythm is irregular. There is a III/ systolic murmur. There is no gallop or rub noted, Abdomen - Soft. Liver and spleen are not enlarged. There is no abdominal mass or ascites noted and there is no inguinal adenopathy, Extremities - No edema, Neurologic - No focal neurologic deficits noted. Lab/Imaging: Test performed on Sep 24, 2021 14:15 Sodium 136 mmol/L Potassium 4.3 mmol/L Chloride 102 mmol/L CO2 22 mmol/L Anion Gap 16.3 BUN 28 mg/dL Creatinine 1.4 mg/dL Cr Clearance (Est) 31.9300 mL/min eGFR 37.6 mL/min Glucose 105 mg/dL Osmolality - Calculated 288 mOsm/kg Calcium 8.5 mg/dL Protein, Total 6.4 g/dL Albumin 3.9 g/dL Globulin 2.5 g/dL Bilirubin, Total 0.4 mg/dL ALT (SGPT) 21 U/L AST (SGOT) 36 U/L Alkaline Phosphatase 75 IU/L WBC 10.6 10 3/uL RBC 3.61 10 6/uL HGB 11.2 g/dL HCT 32.3 % MCV 89.5 fl MCH 31.0 pg MCHC 34.7 g/dL RDW 13.5 % Platelet Count 141 10 3/cmm MPV 9.2 fL Neutrophils 2.67 10 3/uL Lymphocytes 6.4 10 3/uL Monocytes 0.9 10 3/uL Eosinophils 0.5 10 3/uL Basophils 0.1 10 3/uL Neutrophil % 25.2 % Lymphocyte % 60.8 % Monocyte % 8.2 % Eosinophil % 4.9 % Basophils % 0.5 % NRBC % 0 % CBC Slide Review Slide Review Perform REVIEW AGREES WITH AUTOMATED RESULTS BCR/ABL Source serum BCR/ABL Previous Quant NG Problem List: 1. [place] chromosome positive chronic myeloid leukemia, confirmed by bone marrow aspiration/biopsy in 04/08/2019. 2. Hypertension. 3. Hyperlipidemia. 4. Type II diabetes. 5. She also appears to have chronic kidney disease. 6. She has coronary disease and aortic stenosis. She underwent bypass prosthetic aortic valve replacement and triple vessel bypass in 2014. Problems Addressed with this Encounter and Plan: Patient with [place] chromosome positive chronic myeloid leukemia, confirmed by bone marrow aspiration/biopsy in 04/08/2019. She was initially treated with hydroxyurea and allopurinol. In June 2019 she began treatment with nilotinib 300 mg twice a day. She stopped treatment on day 2 due to severe nausea/vomiting. The symptoms improved, and she restarted nilotinib 150 mg twice a day. Initially she was able to tolerate it with acceptable toxicity. However, within a short time she had to stop treatment due to a fairly generalized skin eruption. On 08/18/2019 she began 2nd line TKI therapy with desatinib at 70 mg daily. She tolerated it well initially. By October 2019 her treatment was put on hold due to anemia and thrombocytopenia. It was then restarted with the dosage reduced to 50 mg daily. She had a good clinical response. During follow-up her quantitative PCR for BCR/abl remained detectable, but had a very low level, <0.03%. She continued to have some fatigue, at least some of which was attributable to the medication. She developed a pattern of skipping the dasatinib for 1 day after taking it 3 or 4 days in a row. At this point she appears stable with the PCR detectable at a very low titer. My main concern is that she does seem to be having more shortness of breath and heart racing, and she does have a significant cardiac murmur. Her most recent echocardiogram, from June 2020, showed left ventricular ejection fraction adequate at 55%, there was grade 2/4 diastolic dysfunction. There was moderate mitral valve regurgitation and moderate tricuspid valve regurgitation. The findings were stable compared to previous study from 2015. For now she will continue the dasatinib at 50 mg daily, as tolerated. She will be scheduled for a follow-up visit in 3 months. Signed By: Lawrence Leger M.D. <<Signature on File>>
== END 2021-10-03 14:15 | disposition home or self-care (01) ==
LOC: ONCMED 14:18
PROVIDERS: PCP Family Medicine; Visit Provider Internal Medicine Medical Oncology
DX: C92.10 Chronic myeloid leukemia, BCR/ABL-positive, not having achieved remission (principal); I10 Essential (primary) hypertension; E78.5 Hyperlipidemia, unspecified; E11.22 Type 2 diabetes mellitus with diabetic chronic kidney disease; N18.9 Chronic kidney disease, unspecified; E11.59 Type 2 diabetes mellitus with other circulatory complications; I25.10 Atherosclerotic heart disease of native coronary artery without angina pectoris; I70.0 Atherosclerosis of aorta; Z95.5 Presence of coronary angioplasty implant and graft; Z79.899 Other long term (current) drug therapy; Z92.21 Personal history of antineoplastic chemotherapy
CPT/HCPCS: 99214

== ENCOUNTER 2022-01-02 12:11 | Outpatient (CLI) | payer MEDICARE, SELFPAY ==
[2022-01-02 12:46] LABS: Basophils % 0.7 %; Eosinophils # 0.5 10^3/uL (0.0-0.8); Eosinophils % 8.3 %; Hematocrit 35.1 % (37.0-47.0); Hemoglobin 11.5 g/dL (11.5-15.3); Lymphocytes # 2.4 10^3/uL (0.8-4.8); Lymphocytes % 40.6 %; Mean Corpuscular HGB Conc 32.8 g/dL (30.0-36.0); Mean Corpuscular Hemoglobin 30.3 pg (28.0-34.0); Mean Corpuscular Volume 92.6 fl (81-99); Mean Platelet Volume 9.3 fL (7.4-10.4); Monocytes # 0.6 10^3/uL (0.2-0.9); Monocytes % 10.7 %; Neutrophils # 2.32 10^3/uL (1.8-7.7); Neutrophils % 39.5 %; Nucleated Red Blood Cells % 0 %; Platelet Count 149 10^3/cmm (130-400); Red Blood Count 3.79 10^6/uL (4.1-5.3); Red Cell Distribution Width 14.8 % (12.1-15.1); White Blood Count 5.9 10^3/uL (4.0-10.0)
[2022-01-02 13:37] LABS: Alanine Aminotransferase 19 U/L (0-33); Albumin Level 4.2 g/dL (3.5-5.2); Alkaline Phosphatase 66 IU/L (35-105); Aspartate Amino Transferase 32 U/L (0-32); Blood Urea Nitrogen 22 mg/dL (8-23); Calcium 9.2 mg/dL (8.5-10.5); Carbon Dioxide 22 mmol/L (22-29); Chloride 103 mmol/L (98-107); Glucose 121 mg/dL (65-115); Iron 60 ug/dL (37-145); Lactate Dehydrogenase 255 U/L (135-214); Potassium 4.4 mmol/L (3.5-5.1); Thyroid Stimulating Hormone 5.37 uIU/mL (0.27-4.20); Total Bilirubin 0.5 mg/dL (0.15-1.2); Total Iron Binding Capacity 299 mcg/dl; Total Protein 7.2 g/dL (6.6-8.7); Unsaturated Iron Binding 239 ug/dL (112-347); Vitamin B12 827 pg/mL (232-1245)
[2022-01-02 13:52] LABS: Anion Gap 18.4 (5-19); Osmolality Calculated 293 mOsm/kg (285-295); Sodium 139 mmol/L (136-145)
[2022-01-02 17:50] LABS: Free T4 Free Thyroxine 1.43 ng/dL (0.82-1.77)
--- NOTE | 2022-01-06 09:27 | ONC FU_ITS ---
Dr. Leger Patient Follow-Up Note Patient: Mitzi Gutierrez Unit #: [id number]: 1955 Dicatated By: Lawrence Leger M.D.Date of Visit:Jan 02, 2022 Onc Med Follow-up/Prog Note Chief Complaint: Chronic myeloid leukemia. History of Present Illness: This is a 66 year-old woman with [place] chromosome positive chronic myeloid leukemia. She had scheduled laboratory studies with Dr. Collins on 03/04/2019. Her CBC showed normal hemoglobin at 13.4 g with hematocrit 40.6%. The WBC was elevated at 47,600. The differential included 43% neutrophils, 19% bands, 13% metamyelocytes, 5% myelocytes, 1% promyelocytes, 7% lymphocytes, 1% monocytes, 7% eosinophils, 3% basophils, and 1% blasts. The platelet count was mildly elevated 517,000. The differential report also included presence of giant platelets. Her comprehensive metabolic profile showed borderline renal function with BUN 26 and creatinine 1.28 mg/dL. Bilirubin was normal at 0.7 mg/dL with normal liver enzymes. I had seen her initially on 03/12/2019. A FISH study was positive for BCR/abl. Bone marrow aspiration/biopsy on 04/08/2019 was consistent with chronic myeloid leukemia. The marrow was hypercellular at 100%. On the chromosome analysis the [place] chromosome was present in 65% of metaphase cells analyzed. The quantitative PCR for BCR/abl was 50.224%. She began treatment with hydroxyurea and alloupurinol. The hydroxyurea was put on hold as of 04/15/2019 at which point her white blood cell count had decreased to 1200. Her hemoglobin was down slightly, to 11.2 g. The platelet count had decreased to 313,000. She also stopped the allopurinol due to development of a skin eruption. During subsequent follow-up there was gradual recovery of her blood counts. As of 05/17/2019 the hemoglobin was back up to 12.7 g with white blood cell count normal at 9400 and platelet count mildly elevated at 442,000. During this time, we had initiated the process of getting her started on treatment with nilotinib, subject to verification of insurance coverage. In the meantime, after reviewing some literature, she had indicated that she was uncertain about taking the medication, and the process was put on hold. However, she eventually did opt to proceed with treatment. She began nilotinib 300 mg twice a day on 06/15/2019. She stopped it on the 2nd day due to severe nausea/vomiting. She said she was never so sick in her life. She then restarted the nilotinib at 150 mg twice a day. Initially she was able to tolerate it, but she had to stop it again when she developed a skin eruption involving her face, chest, and back. The rash subsequently improved, and at that point I had her restart the hydroxyurea at 500 mg daily. As of 08/18/2019 she stopped hydroxyurea and began treatment with desatinib 70 mg daily. During followup she did have some fatigue, but she was able to tolerate treatment with acceptable toxicity. As of October 2019 her treatment was put on hold due to anemia and thrombocytopenia. It subsequently was restarted with the dosage reduced to 50 mg daily. She continued to have significant fatigue even at the lower dosage, so that she would typically take it 3 to 4 days in a row and then skip a day. As of September 2020 her quantitative PCR for BCR/abl was still detectable, but only at 0.006%. She continued dasatinib at 50 mg daily, as tolerated. During further follow-up her PCR remained detectable, but still at very low titer. Her other medical illnesses include hypertension, hyperlipidemia, type II diabetes, coronary artery disease, and aortic stenosis. She underwent bioprosthetic aortic valve replacement and triple bypass in 2014. She also has a history of chronic diarrhea. She is a nonsmoker. INTERIM HISTORY: She is seen for a follow-up visit. She continues to complain that she does not have much energy, but that is about the same. She is doing light work. ECOG score is 1. Appetite is not great, but also the same. She does not have fever or night sweats. She has not had sore mouth or throat. She recently had a mild head cold and she did have some cough associated with it, but it is better now. She does not complain of shortness of breath or chest pain. She has no GI/ complaints other than her bowels are kind of loose. She has no significant joint or bone pain. She does not complain of headache. She sometimes gets lightheaded. She has no numbness/paresthesia or other focal neurologic symptoms. Medications: Anti-Oxidant 1 Tablet Oral daily, Atenolol 1 Tablet (of 50 mg) Oral at bedtime, Atorvastatin Calcium 1 Tablet (of 20 mg) Oral daily, glyBURIDE 0.5 - 1 Tablet (of 5 mg) Oral b.i.d., hydroCHLOROthiazide 1 Tablet (of 25 mg) Oral daily, Potassium Chloride ER 1 Tablet (of 10 meq) Tablet, controlled release Oral daily, Sprycel 1 Tablet (of 50 mg) Oral daily Allergies: Allopurinol, Codeine Sulfate, Isosorbide Mononitrate, and Plavix. Vital Signs: Performed on Jan 02, 2022 14:02 Height - 58.00 in Weight - 115.0 lbs (HIGH) BSA - 1.44 sq.m BMI - 24.04 Temperature - 98.0 F (LOW) Pulse - 68 /min Respiration - 16 /min BP - 146/60 mm(hg) (HIGH) O2 Sat - 99 % Pain - 0 Fatigue - 4 Physical Examination: Constitutional - She looks pretty good generally, Eyes - Sclerae nonicteric. Conjunctivae clear, ENMT - No lesions noted in the oral cavity, Hematologic/Lymphatic - No cervical, clavicular, or axillary adenopathy, Respiratory - Lungs are clear with good air movement bilaterally, Cardiovascular - Heart rhythm is irregular. There is a III/ systolic murmur. There is no gallop or rub noted, Abdomen - Soft. Liver and spleen are not enlarged. There is no abdominal mass or ascites noted and there is no inguinal adenopathy, Extremities - No edema, Neurologic - No focal neurologic deficits noted. Lab/Imaging: Test performed on Jan 02, 2022 12:35 Iron 60 mcg/dL LDH (Total) 255 U/L Sodium 139 mmol/L T4, Free 1.43 ng/dL TSH 5.37 uIU/mL Vitamin B12 827 pg/mL Iron Binding Capacity (TIBC) 299 mcg/dl Potassium 4.4 mmol/L % Iron Saturation 20.0 % Chloride 103 mmol/L CO2 22 mmol/L UIBC 239 mcg/dL Anion Gap 18.4 BUN 22 mg/dL Creatinine 1.3 mg/dL Cr Clearance (Est) 34.9300 mL/min eGFR 41.0 mL/min Glucose 121 mg/dL Osmolality - Calculated 293 mOsm/kg Calcium 9.2 mg/dL Protein, Total 7.2 g/dL Albumin 4.2 g/dL Globulin 3.0 g/dL Bilirubin, Total 0.5 mg/dL ALT (SGPT) 19 U/L AST (SGOT) 32 U/L Alkaline Phosphatase 66 IU/L WBC 5.9 10 3/uL RBC 3.79 10 6/uL HGB 11.5 g/dL HCT 35.1 % MCV 92.6 fl MCH 30.3 pg MCHC 32.8 g/dL RDW 14.8 % Platelet Count 149 10 3/cmm MPV 9.3 fL Neutrophils 2.32 10 3/uL Lymphocytes 2.4 10 3/uL Monocytes 0.6 10 3/uL Eosinophils 0.5 10 3/uL Basophils 0.0 10 3/uL Neutrophil % 39.5 % Lymphocyte % 40.6 % Monocyte % 10.7 % Eosinophil % 8.3 % Basophils % 0.7 % NRBC % 0 % Problem List: 1. [place] chromosome positive chronic myeloid leukemia, confirmed by bone marrow aspiration/biopsy in 04/08/2019. 2. Hypertension. 3. Hyperlipidemia. 4. Type II diabetes. 5. She also appears to have chronic kidney disease. 6. She has coronary disease and aortic stenosis. She underwent bypass prosthetic aortic valve replacement and triple vessel bypass in 2014. Problems Addressed with this Encounter and Plan: Patient with [place] chromosome positive chronic myeloid leukemia, confirmed by bone marrow aspiration/biopsy in 04/08/2019. She was initially treated with hydroxyurea and allopurinol. In June 2019 she began treatment with nilotinib 300 mg twice a day. She stopped treatment on day 2 due to severe nausea/vomiting. The symptoms improved, and she restarted nilotinib 150 mg twice a day. Initially she was able to tolerate it with acceptable toxicity. However, within a short time she had to stop treatment due to a fairly generalized skin eruption. On 08/18/2019 she began 2nd line TKI therapy with desatinib at 70 mg daily. She tolerated it well initially. By October 2019 her treatment was put on hold due to anemia and thrombocytopenia. It was then restarted with the dosage reduced to 50 mg daily. She had a good clinical response. During follow-up her quantitative PCR for BCR/abl remained detectable, but had a very low level, <0.03%. She continued to have some fatigue, at least some of which was attributable to the medication. She developed a pattern of skipping the dasatinib for 1 day after taking it 3 or 4 days in a row. Overall, she has been doing pretty well clinically. Thus far she has been able to tolerate the dasatinib adequately at the reduced dosage. Her current PCR is pending. In the absence of any evidence of disease progression she will continue the dasatinib at 50 mg daily. She will be scheduled for a follow-up visit in 3 months. Signed By: Lawrence Leger M.D. <<Signature on File>>
[2022-01-07 18:38] LABS: BCR ABL1 (IS) 0.018 (0.000); P210 BCR ALB1 DETECTED; Prior Results NG; Source Serum
== END 2022-01-02 12:12 | disposition home or self-care (01) ==
PROVIDERS: PCP Family Medicine; Visit Provider Internal Medicine Medical Oncology
DX: C92.10 Chronic myeloid leukemia, BCR/ABL-positive, not having achieved remission (principal); I10 Essential (primary) hypertension; E78.5 Hyperlipidemia, unspecified; E11.9 Type 2 diabetes mellitus without complications; N18.9 Chronic kidney disease, unspecified; I25.10 Atherosclerotic heart disease of native coronary artery without angina pectoris; I35.0 Nonrheumatic aortic (valve) stenosis; R53.83 Other fatigue; R19.7 Diarrhea, unspecified; Z79.899 Other long term (current) drug therapy; Z95.2 Presence of prosthetic heart valve; Z95.1 Presence of aortocoronary bypass graft
CPT/HCPCS: 36415; 80053; 81206; 82607; 83540; 83550; 83615; 84439; 84443; 85025; 99214

== ENCOUNTER 2022-05-15 10:21 | Oncology outpatient (recurring) (ONCR) | payer MEDICARE, SELFPAY ==
[2022-05-15 10:56] LABS: Basophils % 0.7 %; Eosinophils # 0.6 10^3/uL (0.0-0.8); Eosinophils % 9.3 %; Hematocrit 34.4 % (37.0-47.0); Hemoglobin 11.9 g/dL (11.5-15.3); Lymphocytes # 2.5 10^3/uL (0.8-4.8); Lymphocytes % 42.4 %; Mean Corpuscular HGB Conc 34.6 g/dL (30.0-36.0); Mean Corpuscular Hemoglobin 31.2 pg (28.0-34.0); Mean Corpuscular Volume 90.1 fl (81-99); Mean Platelet Volume 9.5 fL (7.4-10.4); Monocytes # 0.8 10^3/uL (0.2-0.9); Monocytes % 12.9 %; Neutrophils # 2.02 10^3/uL (1.8-7.7); Neutrophils % 34.4 %; Nucleated Red Blood Cells % 0 %; Platelet Count 163 10^3/cmm (130-400); Red Blood Count 3.82 10^6/uL (4.1-5.3); Red Cell Distribution Width 13.7 % (12.1-15.1); White Blood Count 5.9 10^3/uL (4.0-10.0)
[2022-05-15 11:31] LABS: Alanine Aminotransferase 16 U/L (0-33); Albumin Level 4.3 g/dL (3.5-5.2); Alkaline Phosphatase 88 IU/L (35-105); Anion Gap 17.2 (5-19); Aspartate Amino Transferase 30 U/L (0-32); Blood Urea Nitrogen 32 mg/dL (8-23); Calcium 9.5 mg/dL (8.5-10.5); Carbon Dioxide 22 mmol/L (22-29); Chloride 101 mmol/L (98-107); Globulin 2.6 g/dL (1.3-4.6); Glucose 143 mg/dL (65-115); Iron 68 ug/dL (37-145); Osmolality Calculated 291 mOsm/kg (285-295); Percent Saturation 24.2 % (20-50); Potassium 4.2 mmol/L (3.5-5.1); Sodium 136 mmol/L (136-145); Thyroid Stimulating Hormone 6.27 uIU/mL (0.27-4.20); Total Bilirubin 0.4 mg/dL (0.15-1.2); Total Iron Binding Capacity 280 mcg/dl; Total Protein 6.9 g/dL (6.6-8.7); Unsaturated Iron Binding 212 ug/dL (112-347)
[2022-05-21 17:07] LABS: BCR ABL1 (IS) 0.008 (0.000); P210 BCR ALB1 DETECTED; Prior Results BLOOD; Source blood
== END 2022-06-02 23:59 | disposition home or self-care (01) ==
LOC: ONCMED 10:22
PROVIDERS: PCP Family Medicine; Referring Provider Family Medicine; Visit Provider Internal Medicine Medical Oncology
DX: C92.10 Chronic myeloid leukemia, BCR/ABL-positive, not having achieved remission (principal); D64.9 Anemia, unspecified; D69.6 Thrombocytopenia, unspecified; Z79.899 Other long term (current) drug therapy
CPT/HCPCS: 36415; 80053; 81206; 83540; 83550; 84439; 84443; 85025; 99214

== ENCOUNTER 2022-07-16 10:37 | Outpatient (CLI) | payer MEDICARE, SELFPAY ==
[2022-07-16 11:18] LABS: Basophils % 0.6 %; Eosinophils # 0.4 10^3/uL (0.0-0.8); Hematocrit 33.2 % (37.0-47.0); Hemoglobin 10.9 g/dL (11.5-15.3); Lymphocytes # 1.3 10^3/uL (0.8-4.8); Lymphocytes % 24.5 %; Mean Corpuscular HGB Conc 32.8 g/dL (30.0-36.0); Mean Corpuscular Hemoglobin 30.6 pg (28.0-34.0); Mean Corpuscular Volume 93.3 fl (81-99); Monocytes # 0.6 10^3/uL (0.2-0.9); Monocytes % 12.3 %; Neutrophils # 2.79 10^3/uL (1.8-7.7); Neutrophils % 54.2 %; Nucleated Red Blood Cells % 0 %; Platelet Count 211 10^3/cmm (130-400); Red Blood Count 3.56 10^6/uL (4.1-5.3); Red Cell Distribution Width 13.4 % (12.1-15.1); White Blood Count 5.1 10^3/uL (4.0-10.0)
[2022-07-16 11:31] LABS: Alanine Aminotransferase 20 U/L (0-33); Albumin Level 3.9 g/dL (3.5-5.2); Alkaline Phosphatase 66 U/L (35-105); Anion Gap 17.3 (5-19); Aspartate Amino Transferase 34 U/L (0-32); Blood Urea Nitrogen 22 mg/dL (8-23); Calcium 9.1 mg/dL (8.5-10.5); Carbon Dioxide 23 mmol/L (22-29); Chloride 103 mmol/L (98-107); Glomerular Filtration Rate 34.6 mL/min (90-130); Glucose 127 mg/dL (65-115); Osmolality Calculated 293 mOsm/kg (285-295); Potassium 4.3 mmol/L (3.5-5.1); Sodium 139 mmol/L (136-145); Total Bilirubin 0.4 mg/dL (0.15-1.2); Total Protein 6.9 g/dL (6.6-8.7)
[2022-07-20 22:43] LABS: BCR ABL1 (IS) 0.013 (0.000); P210 BCR ALB1 DETECTED; Prior Results BLOOD; Source blood
== END 2022-07-16 10:38 | disposition home or self-care (01) ==
LOC: LAB 10:41
PROVIDERS: PCP Family Medicine; Visit Provider Nurse Practitioner Family
DX: C90.00 Multiple myeloma not having achieved remission (principal)
CPT/HCPCS: 36415; 80053; 81206; 85025

== ENCOUNTER 2022-08-14 12:45 | Oncology outpatient (recurring) (ONCR) | payer MEDICARE, SELFPAY ==
[2022-08-13 12:55] LABS: Alanine Aminotransferase 55 U/L (0-33); Albumin Level 3.7 g/dL (3.5-5.2); Alkaline Phosphatase 86 U/L (35-105); Anion Gap 14.6 (5-19); Aspartate Amino Transferase 62 U/L (0-32); Blood Urea Nitrogen 26 mg/dL (8-23); Calcium 8.9 mg/dL (8.5-10.5); Carbon Dioxide 26 mmol/L (22-29); Chloride 99 mmol/L (98-107); Globulin 2.7 g/dL (1.3-4.6); Glomerular Filtration Rate 40.9 mL/min (90-130); Glucose 159 mg/dL (65-115); Lactate Dehydrogenase 289 U/L (135-214); Osmolality Calculated 288 mOsm/kg (285-295); Potassium 4.6 mmol/L (3.5-5.1); Sodium 135 mmol/L (136-145); Total Bilirubin 0.5 mg/dL (0.15-1.2); Total Protein 6.4 g/dL (6.6-8.7)
[2022-08-13 13:09] LABS: Basophils % 0.5 %; Eosinophils # 0.4 10^3/uL (0.0-0.8); Eosinophils % 5.3 %; Hematocrit 33.4 % (37.0-47.0); Hemoglobin 11.1 g/dL (11.5-15.3); Lymphocytes # 3.5 10^3/uL (0.8-4.8); Lymphocytes % 42.8 %; Mean Corpuscular HGB Conc 33.2 g/dL (30.0-36.0); Mean Corpuscular Volume 93.3 fl (81-99); Mean Platelet Volume 9.1 fL (7.4-10.4); Monocytes % 12.3 %; Neutrophils # 3.21 10^3/uL (1.8-7.7); Neutrophils % 38.9 %; Nucleated Red Blood Cells % 0 %; Platelet Count 95 10^3/cmm (130-400); Red Blood Count 3.58 10^6/uL (4.1-5.3); Red Cell Distribution Width 14.3 % (12.1-15.1); White Blood Count 8.3 10^3/uL (4.0-10.0)
[2022-08-19 00:03] LABS: BCR ABL1 (IS) 0.021 (0.000); P210 BCR ALB1 DETECTED; Prior Results SERUM; Source serum
== END 2022-09-02 23:59 | disposition home or self-care (01) ==
PROVIDERS: PCP Family Medicine; Referring Provider Family Medicine; Visit Provider Internal Medicine Medical Oncology
DX: C92.10 Chronic myeloid leukemia, BCR/ABL-positive, not having achieved remission (principal); R74.01 Elevation of levels of liver transaminase levels; Z79.899 Other long term (current) drug therapy; Z92.21 Personal history of antineoplastic chemotherapy; R53.83 Other fatigue
CPT/HCPCS: 36415; 80053; 81206; 83615; 85025; 99214

== ENCOUNTER → 2022-08-26 15:06 | Outpatient (BNVA) | payer MEDICARE, SELFPAY | PROVIDERS: PCP Family Medicine; Visit Provider Internal Medicine Cardiovascular Disease | DX: R00.2 Palpitations (principal); R06.09 Other forms of dyspnea; I25.10 Atherosclerotic heart disease of native coronary artery without angina pectoris; Z95.2 Presence of prosthetic heart valve; C92.10 Chronic myeloid leukemia, BCR/ABL-positive, not having achieved remission; I12.9 Hypertensive chronic kidney disease with stage 1 through stage 4 chronic kidney disease, or unspecified chronic kidney disease; E11.22 Type 2 diabetes mellitus with diabetic chronic kidney disease; N18.9 Chronic kidney disease, unspecified; Z79.84 Long term (current) use of oral hypoglycemic drugs | CPT/HCPCS: 93005; 93242; 99214; 99215 ==

== ENCOUNTER 2022-09-13 14:14 | Outpatient (CLI) | payer MEDICARE, SELFPAY ==
[2022-09-13 14:35] LABS: Basophils % 0.6 %; Eosinophils # 0.3 10^3/uL (0.0-0.8); Eosinophils % 6.3 %; Hematocrit 33.2 % (37.0-47.0); Hemoglobin 11.2 g/dL (11.5-15.3); Lymphocytes # 1.6 10^3/uL (0.8-4.8); Mean Corpuscular HGB Conc 33.7 g/dL (30.0-36.0); Mean Corpuscular Hemoglobin 31.4 pg (28.0-34.0); Mean Platelet Volume 9.1 fL (7.4-10.4); Monocytes # 0.5 10^3/uL (0.2-0.9); Monocytes % 9.5 %; Neutrophils # 2.53 10^3/uL (1.8-7.7); Neutrophils % 51.4 %; Nucleated Red Blood Cells % 0 %; Platelet Count 155 10^3/cmm (130-400); Red Blood Count 3.57 10^6/uL (4.1-5.3); Red Cell Distribution Width 14.2 % (12.1-15.1); White Blood Count 4.9 10^3/uL (4.0-10.0)
== END 2022-09-13 14:15 | disposition home or self-care (01) ==
LOC: LAB 14:15
PROVIDERS: PCP Family Medicine; Visit Provider Internal Medicine Medical Oncology
DX: C92.10 Chronic myeloid leukemia, BCR/ABL-positive, not having achieved remission (principal)
CPT/HCPCS: 85025

== ENCOUNTER 2022-10-15 13:31 | Outpatient (CLI) | payer MEDICARE, SELFPAY ==
[2022-10-15 14:35] LABS: Basophils % 0.6 %; Eosinophils # 0.4 10^3/uL (0.0-0.8); Eosinophils % 5.7 %; Hematocrit 32.5 % (37.0-47.0); Lymphocytes # 1.6 10^3/uL (0.8-4.8); Lymphocytes % 25.1 %; Mean Corpuscular HGB Conc 33.8 g/dL (30.0-36.0); Mean Corpuscular Hemoglobin 31.3 pg (28.0-34.0); Mean Corpuscular Volume 92.6 fl (81-99); Mean Platelet Volume 9.4 fL (7.4-10.4); Monocytes # 0.6 10^3/uL (0.2-0.9); Monocytes % 9.5 %; Neutrophils # 3.73 10^3/uL (1.8-7.7); Neutrophils % 58.8 %; Nucleated Red Blood Cells % 0 %; Platelet Count 146 10^3/cmm (130-400); Red Blood Count 3.51 10^6/uL (4.1-5.3); White Blood Count 6.3 10^3/uL (4.0-10.0)
== END 2022-10-15 13:32 | disposition home or self-care (01) ==
PROVIDERS: PCP Family Medicine; Visit Provider Internal Medicine Medical Oncology
DX: C92.10 Chronic myeloid leukemia, BCR/ABL-positive, not having achieved remission (principal)
CPT/HCPCS: 85025

== ENCOUNTER 2022-11-13 13:34 | Oncology outpatient (recurring) (ONCR) | payer MEDICARE, SELFPAY ==
[2022-11-13 14:25] LABS: Basophils % 0.6 %; Eosinophils # 0.3 10^3/uL (0.0-0.8); Eosinophils % 6.7 %; Hematocrit 33.1 % (37.0-47.0); Hemoglobin 11.1 g/dL (11.5-15.3); Lymphocytes % 39.7 %; Mean Corpuscular HGB Conc 33.5 g/dL (30.0-36.0); Mean Corpuscular Hemoglobin 30.7 pg (28.0-34.0); Mean Corpuscular Volume 91.7 fl (81-99); Mean Platelet Volume 9.3 fL (7.4-10.4); Monocytes # 0.5 10^3/uL (0.2-0.9); Monocytes % 9.1 %; Neutrophils % 43.7 %; Nucleated Red Blood Cells % 0 %; Platelet Count 138 10^3/cmm (130-400); Red Blood Count 3.61 10^6/uL (4.1-5.3); Red Cell Distribution Width 13.8 % (12.1-15.1)
[2022-11-13 15:04] LABS: Alanine Aminotransferase 14 U/L (0-33); Albumin Level 4.3 g/dL (3.5-5.2); Alkaline Phosphatase 65 U/L (35-105); Anion Gap 15.1 (5-19); Aspartate Amino Transferase 25 U/L (0-32); Blood Urea Nitrogen 23 mg/dL (8-23); Calcium 8.7 mg/dL (8.5-10.5); Carbon Dioxide 24 mmol/L (22-29); Chloride 102 mmol/L (98-107); Globulin 2.5 g/dL (1.3-4.6); Glomerular Filtration Rate 40.9 mL/min (90-130); Glucose 138 mg/dL (65-115); Lactate Dehydrogenase 254 U/L (135-214); Osmolality Calculated 290 mOsm/kg (285-295); Potassium 4.1 mmol/L (3.5-5.1); Sodium 137 mmol/L (136-145); Total Bilirubin 0.5 mg/dL (0.15-1.2); Total Protein 6.8 g/dL (6.6-8.7)
[2022-11-19 21:34] LABS: BCR ABL1 (IS) 0.006 (0.000); P210 BCR ALB1 DETECTED; Prior Results NG; Source whole blood
== END 2022-12-03 23:59 | disposition home or self-care (01) ==
PROVIDERS: PCP Family Medicine; Referring Provider Family Medicine; Visit Provider Internal Medicine Medical Oncology
DX: C92.10 Chronic myeloid leukemia, BCR/ABL-positive, not having achieved remission (principal)
CPT/HCPCS: 36415; 80053; 81206; 83615; 85025

== ENCOUNTER → 2022-11-20 14:20 | Outpatient (BNVA) | payer MEDICARE, SELFPAY | PROVIDERS: PCP Family Medicine; Visit Provider Internal Medicine Medical Oncology | DX: C92.10 Chronic myeloid leukemia, BCR/ABL-positive, not having achieved remission (principal); R53.0 Neoplastic (malignant) related fatigue; R74.01 Elevation of levels of liver transaminase levels; Z79.899 Other long term (current) drug therapy; Z92.25 Personal history of immunosuppression therapy | CPT/HCPCS: 99214 ==

== ENCOUNTER 2023-02-17 14:47 | Oncology outpatient (recurring) (ONCR) | payer MEDICARE, SELFPAY ==
[2023-02-11 15:01] LABS: Basophils % 0.6 %; Eosinophils # 0.4 10^3/uL (0.0-0.8); Eosinophils % 7.6 %; Hemoglobin 11.1 g/dL (11.5-15.3); Lymphocytes # 1.9 10^3/uL (0.8-4.8); Lymphocytes % 35.9 %; Mean Corpuscular HGB Conc 33.6 g/dL (30.0-36.0); Mean Corpuscular Hemoglobin 30.8 pg (28.0-34.0); Mean Corpuscular Volume 91.7 fl (81-99); Mean Platelet Volume 9.2 fL (7.4-10.4); Monocytes # 0.6 10^3/uL (0.2-0.9); Monocytes % 11.2 %; Neutrophils # 2.35 10^3/uL (1.8-7.7); Neutrophils % 44.3 %; Nucleated Red Blood Cells % 0 %; Platelet Count 160 10^3/cmm (130-400); Red Cell Distribution Width 14.1 % (12.1-15.1); White Blood Count 5.3 10^3/uL (4.0-10.0)
[2023-02-11 15:22] LABS: Alanine Aminotransferase 17 U/L (0-33); Alkaline Phosphatase 66 U/L (35-105); Anion Gap 13.7 (5-19); Aspartate Amino Transferase 31 U/L (0-32); Blood Urea Nitrogen 23 mg/dL (8-23); Calcium 8.9 mg/dL (8.5-10.5); Carbon Dioxide 25 mmol/L (22-29); Chloride 104 mmol/L (98-107); Globulin 2.6 g/dL (1.3-4.6); Glomerular Filtration Rate 37.5 mL/min (90-130); Glucose 124 mg/dL (65-115); Lactate Dehydrogenase 277 U/L (135-214); Osmolality Calculated 291 mOsm/kg (285-295); Potassium 4.7 mmol/L (3.5-5.1); Sodium 138 mmol/L (136-145); Total Bilirubin 0.5 mg/dL (0.15-1.2); Total Protein 6.6 g/dL (6.6-8.7)
[2023-02-15 19:01] LABS: BCR ABL1 (IS) 0.007 (0.000); P210 BCR ALB1 DETECTED; Source Peripheral blood
== END 2023-03-02 23:59 | disposition home or self-care (01) ==
PROVIDERS: PCP Family Medicine; Visit Provider Internal Medicine Medical Oncology
DX: C92.10 Chronic myeloid leukemia, BCR/ABL-positive, not having achieved remission (principal); E11.9 Type 2 diabetes mellitus without complications; Z79.899 Other long term (current) drug therapy; Z79.84 Long term (current) use of oral hypoglycemic drugs
CPT/HCPCS: 36415; 80053; 81206; 83615; 85025; 99214

== ENCOUNTER → 2023-03-04 15:32 | Outpatient (BNVA) | payer MEDICARE, SELFPAY | PROVIDERS: PCP Family Medicine; Visit Provider Internal Medicine Cardiovascular Disease | DX: I49.8 Other specified cardiac arrhythmias (principal); Z95.2 Presence of prosthetic heart valve; I25.10 Atherosclerotic heart disease of native coronary artery without angina pectoris; I12.9 Hypertensive chronic kidney disease with stage 1 through stage 4 chronic kidney disease, or unspecified chronic kidney disease; E11.22 Type 2 diabetes mellitus with diabetic chronic kidney disease; N18.9 Chronic kidney disease, unspecified; Z79.84 Long term (current) use of oral hypoglycemic drugs | CPT/HCPCS: 99214 ==

== ENCOUNTER 2023-05-26 14:01 | Oncology outpatient (recurring) (ONCR) | payer MEDICARE, SELFPAY ==
[2023-05-26 14:06] VITALS: BP 118/68; PULSE 62; RESP 18; TEMP 36.4; O2SAT 99
[2023-05-26 14:23] LABS: Basophils # 0.1 10^3/uL (0.0-0.1); Basophils % 0.6 %; Eosinophils # 0.6 10^3/uL (0.0-0.8); Eosinophils % 6.8 %; Hematocrit 33.7 % (37.0-47.0); Hemoglobin 11.4 g/dL (11.5-15.3); Lymphocytes # 3.9 10^3/uL (0.8-4.8); Lymphocytes % 45.1 %; Mean Corpuscular HGB Conc 33.8 g/dL (30.0-36.0); Mean Corpuscular Hemoglobin 30.7 pg (28.0-34.0); Mean Corpuscular Volume 90.8 fl (81-99); Mean Platelet Volume 8.8 fL (7.4-10.4); Monocytes # 0.8 10^3/uL (0.2-0.9); Monocytes % 9.7 %; Neutrophils # 3.25 10^3/uL (1.8-7.7); Neutrophils % 37.7 %; Nucleated Red Blood Cells % 0 %; Platelet Count 136 10^3/cmm (130-400); Red Blood Count 3.71 10^6/uL (4.1-5.3); Red Cell Distribution Width 13.8 % (12.1-15.1); White Blood Count 8.6 10^3/uL (4.0-10.0)
[2023-05-26 14:49] LABS: Alanine Aminotransferase 12 U/L (0-33); Alkaline Phosphatase 84 U/L (35-105); Blood Urea Nitrogen 23 mg/dL (8-23); Calcium 8.8 mg/dL (8.5-10.5); Carbon Dioxide 22 mmol/L (22-29); Chloride 101 mmol/L (98-107); Globulin 2.4 g/dL (1.3-4.6); Glomerular Filtration Rate 40.9 mL/min (90-130); Glucose 157 mg/dL (65-115); Osmolality Calculated 285 mOsm/kg (285-295); Sodium 134 mmol/L (136-145); Total Bilirubin 0.4 mg/dL (0.15-1.2); Total Protein 6.4 g/dL (6.6-8.7)
[2023-05-26 14:51] LABS: Anion Gap 15.8 (5-19); Aspartate Amino Transferase 26 U/L (0-32); Potassium 4.8 mmol/L (3.5-5.1)
[2023-05-26 14:52] LABS: Lactate Dehydrogenase 332 U/L (135-214)
[2023-06-01 21:26] LABS: BCR ABL1 (IS) 0.024 (0.000); P210 BCR ALB1 DETECTED; P210 BCR ALB1 Yes Test Yes; Prior Results NG; Source whole blood
== END 2023-06-02 23:59 | disposition home or self-care (01) ==
LOC: ONCMED 14:02
PROVIDERS: PCP Family Medicine; Visit Provider Internal Medicine Medical Oncology
DX: C92.10 Chronic myeloid leukemia, BCR/ABL-positive, not having achieved remission (principal)
CPT/HCPCS: 36415; 80053; 81206; 83615; 85025

== ENCOUNTER 2023-06-05 11:21 | Oncology outpatient (recurring) (ONCR) | payer MEDICARE, SELFPAY | END 2023-07-03 23:59 | disposition home or self-care (01) | PROVIDERS: PCP Family Medicine; Visit Provider Internal Medicine Medical Oncology | DX: C92.10 Chronic myeloid leukemia, BCR/ABL-positive, not having achieved remission (principal); Z92.21 Personal history of antineoplastic chemotherapy; Z79.899 Other long term (current) drug therapy | CPT/HCPCS: 99214 ==

== ENCOUNTER 2023-09-15 14:23 | Oncology outpatient (recurring) (ONCR) | payer MEDICARE, SELFPAY ==
[2023-09-08 13:23] VITALS: PULSE 73; RESP 16; TEMP 36.9; O2SAT 95
[2023-09-08 13:45] LABS: Basophils % 0.8 %; Eosinophils # 0.4 10^3/uL (0.0-0.8); Eosinophils % 8.4 %; Hematocrit 32.8 % (36-47); Lymphocytes # 1.7 10^3/uL (0.8-4.8); Lymphocytes % 33.1 %; Mean Corpuscular HGB Conc 34.1 g/dL (30-55); Mean Corpuscular Volume 90.9 fl (85-98); Mean Platelet Volume 9.2 fL (7.4-10.4); Monocytes # 0.6 10^3/uL (0.2-0.9); Monocytes % 12.2 %; Neutrophils # 2.27 10^3/uL (1.8-7.7); Neutrophils % 45.3 %; Nucleated Red Blood Cells % 0 %; Platelet Count 171 10^3/cmm (157-399); Red Blood Count 3.61 10^6/uL (3.85-5.65); White Blood Count 5.01 10^3/uL (3.29-11.43)
[2023-09-08 14:00] LABS: Alanine Aminotransferase 13 U/L (0-33); Albumin Level 4.2 g/dL (3.5-5.2); Alkaline Phosphatase 62 U/L (35-105); Anion Gap 15.2 (5-19); Aspartate Amino Transferase 27 U/L (0-32); Blood Urea Nitrogen 30 mg/dL (8-23); Calcium 8.8 mg/dL (8.5-10.5); Carbon Dioxide 24 mmol/L (22-29); Chloride 101 mmol/L (98-107); Globulin 2.8 g/dL (1.3-4.6); Glomerular Filtration Rate 32.1 mL/min (90-130); Glucose 129 mg/dL (65-115); Osmolality Calculated 290 mOsm/kg (285-295); Potassium 4.2 mmol/L (3.5-5.1); Sodium 136 mmol/L (136-145); Total Bilirubin 0.9 mg/dL (0.15-1.2)
[2023-09-11 18:30] LABS: BCR ABL1 (IS) 0.009 (0.000); P210 BCR ALB1 DETECTED; P210 BCR ALB1 Yes Test Yes; Prior Results NG; Source Blood
== END 2023-10-02 23:59 | disposition home or self-care (01) ==
PROVIDERS: Internal Medicine Medical Oncology; PCP Family Medicine; Visit Provider Internal Medicine Medical Oncology
DX: C92.10 Chronic myeloid leukemia, BCR/ABL-positive, not having achieved remission (principal); Z92.21 Personal history of antineoplastic chemotherapy; Z79.899 Other long term (current) drug therapy; N28.9 Disorder of kidney and ureter, unspecified; E11.9 Type 2 diabetes mellitus without complications
CPT/HCPCS: 36415; 80053; 81206; 85025; 99214

== ENCOUNTER → 2023-11-19 16:28 | Outpatient (BNVA) | payer MEDICARE, SELFPAY | PROVIDERS: PCP Family Medicine; Visit Provider Internal Medicine Cardiovascular Disease | DX: E78.5 Hyperlipidemia, unspecified (principal); R07.9 Chest pain, unspecified; I25.118 Atherosclerotic heart disease of native coronary artery with other forms of angina pectoris; Z95.2 Presence of prosthetic heart valve; Z86.79 Personal history of other diseases of the circulatory system; E03.9 Hypothyroidism, unspecified; E11.9 Type 2 diabetes mellitus without complications | CPT/HCPCS: 93005; 99214 ==

== ENCOUNTER 2023-12-05 07:03 | Outpatient (CLI) | payer MEDICARE, SELFPAY ==
--- NOTE | 2023-12-05 | ECG_ITS ---
[facility] Test Date: 2023-12-05 Pat Name: Mitzi Gutierrez Department: Room: Gender: Female Net Architect: Laura Arteaga : 1955 Requested By: Lei Cardoso Order Number: [id number] Sabrina MD: Clement Florentino M.D. Interpretive Statements NAME OF STUDY: LEXISCAN SESTAMIBI STRESS TEST INDICATION: [Chest Pain, ] Procedure: At the baseline, the blood pressure was 137/77 mmHg with a heart rate of 65 bpm. The electrocardiogram showed normal sinus rhythm, left axis deviation with normal ST and T's. Right bundle branch block. The Lexiscan was infused over a period of 20 seconds. A total of 0.4 mg of Lexiscan was infused. The stress phase was continued for a total of 5 minutes. Heart rate was at the end of stress phase was 74 bpm and a blood pressure of 126/79 mmHg. The EKG at the peak infusion revealed normal sinus rhythm with no significant ST-T wave changes. Sestamibi was injected 20 seconds after the Lexiscan infusion. Blood pressure at the end of recovery phase was 124/75 mmHg with a heart rate of 71 bpm. Conclusion: 1. Normal EKG response to Lexiscan infusion 2. No Lexiscan induced chest pain or cardiac arrhythmia. 3. Normal blood pressure and heart rate response. 4. Sestamibi/sestamibi perfusion scan pending; see separate report. Electronically Signed On 12-07-2023 12:15:19 VESSEL TRAFFIC OFFICER by Clement Florentino M.D. [email or web address]
[2023-12-05 07:15] VITALS: BMI 25.0
--- NOTE | 2023-12-05 07:45 | NMCV_ITS ---
NM toño perf SPECT r/s* [id number] Mitzi Gutierrez Age: 68 Gender: F : 1955 Exam Date: 12/05/2023 08:15 Ordering Phys: Lei Cardoso MD ([email or web address]) Technologist: ONEL Lucero Exam Location: [facility] Indications: CHEST PAIN STRESS TEST Please see separate stress test [facility] for full findings IMAGE PROTOCOL Rest/Stress 1 Lexiscan Day Radiopharmaceutical Dose (mCi) Administration Site Administered by Rest: Tc-99m 10.7 IV ONEL Frederick Sestamibi Stress:Tc-99m 33.0 IV ONEL Frederick Sestamibi Rest: 12/05/2023 60 Discovery 630 Stress: 12/05/2023 30 Discovery 630 0.4mg Lexiscan. Images obtained in supine and prone position. SPECT RESULTS Technical Quality: Excellent Raw Data Analysis: Normal Image Corrections: No attenuation or motion correction applied Summed Stress Score: 27 Summed Rest Score: 21 Summed Difference Score: 6 PERFUSION FINDINGS There is a large area of partially reversible perfusion defect seen in apical, anterior and anteroseptal wall. This is consistent with large sized area of prior infarct with medium sized area of vanesa-infarct ischemia. There is partially reversible, large sized area of perfusion defect noted in inferior and inferolateral [place]. Consistent with large areas of prior infarct with significant vanesa-infarct ischemia in RCA and left circumflex artery territories. FUNCTIONAL RESULTS (calculated via Gated SPECT) Stress Image LV EF (%): 24 Stress EDV (mL):123 TID: 1 Stress ESV (mL):93 FUNCTIONAL FINDINGS: LV systolic function is severely reduced with EF of 24%. Severe global hypokinesis. IMPRESSIONS 1. Abnormal myocardial perfusion imaging with large area of prior infarct with significant vanesa-infarct ischemia in LAD territory. 2. Large areas of prior infarct with significant vanesa-infarct ischemia seen in RCA and left circumflex artery territories. 3. LV systolic function is severely reduced. Severe global hypokinesis seen. Clement Florentino MD (Electronically Signed) Final Date: 06 December 2023 13:56 S
[2023-12-05] MEDS: regadenoson 0.4 Mg/5 ml Syringe IVP (08:54)
[2023-12-05] MEDS: aminophylline 25 mg/mL SDV 10 mL IVP (09:03)
[2023-12-05 09:09] VITALS: BP 131/78; PULSE 69
== END 2023-12-05 07:04 | disposition home or self-care (01) ==
LOC: CDL 07:05
PROVIDERS: PCP Family Medicine; Visit Provider Internal Medicine Cardiovascular Disease
DX: R07.9 Chest pain, unspecified (principal); I25.2 Old myocardial infarction; R93.1 Abnormal findings on diagnostic imaging of heart and coronary circulation
CPT/HCPCS: 36415; 78452; 93017; 96374; 96375; A9500; J0280; J2785

== ENCOUNTER 2023-12-15 11:32 | Inpatient (IN) | payer MEDICARE, SELFPAY ==
--- NOTE | 2023-12-15 12:31 | PC.NURSE ---
Patient arrived via wheelchair accompanied by registration. Patient has been settled into her room and oriented to space and call orozco. Nurse will continue to monitor.
[2023-12-15 12:38] VITALS: BP 145/81; PULSE 76; RESP 26; TEMP 37; O2SAT 92
--- NOTE | 2023-12-15 13:26 | P.HP_ITS ---
Providers/Chief Complaint 2 Admitting Physician: Clement Florentino M.D Primary Care Provider: Willy Collins MD Chief Complaint: pre fluid hydration History of Present Illness Mitzi Gutierrez is a 68 year old female with past medical history of CML following with oncology, hypothyroidism and CAD s/p CABG and AVR several years ago sees Dr. Cardoso in the office. She had stress test recently performed as patient was having pulm pain with exertion radiating to the jaw and neck. Stress test is abnormal. Plan for coronary angiogram. She has CKD. And was admitted today for prehydration. However patient mentions that she has been getting progressive worsening shortness of breath. Also has orthopnea. Review of Systems 2 General: Denies: 10 or more systems reviewed and unremarkable except in HPI and below Const: Denies: fever(s), chills, body aches or change in appetite Eyes: Denies: change in vision or blurry vision ENMT: Denies: disequilibrium Card: Reports: chest pain, dyspnea on exertion and orthopnea; Denies: palpitations, irregular heart rhythm, swelling of feet/ankles or lightheadedness Resp: Denies: dyspnea GI: Denies: hematochezia : Denies: hematuria Musc: Denies: neck pain or back pain Skin/Breast: Denies: dry skin Neuro: Denies: headache(s), numbness in extremities, weakness in extremities or dizziness Psych: Denies: anxiety or depression Endo: Denies: tired all the time Dale/Lymph: Denies: easy bruising or easy bleeding Medications/Allergies Home Medications Medication Instructions Recorded Confirmed Last Taken Type nitroglycerin 0.4 mg sublingual 0.4 mg sublingual Q5M PRN 05/02/20 11/19/23 Unknown History tablet (Nitrostat) levothyroxine 25 mcg tablet See Rx Instructions .Route 12/25/22 11/19/23 Unknown Rx .COMPLEX #90 tabs potassium chloride 10 mEq 10 meq PO DAILY #90 caps 01/09/23 11/19/23 Unknown Rx capsule,extended release hydrochlorothiazide 25 mg tablet 25 mg PO DAILY #90 tabs 05/16/23 11/19/23 Unknown Rx dasatinib 50 mg tablet (Sprycel) 50 mg PO DAILY #60 tabs 09/22/23 11/19/23 Unknown Rx atorvastatin 40 mg tablet (Lipitor) 40 mg PO DAILY #90 tabs 11/19/23 12/15/23 Unknown Rx diltiazem HCl 60 mg 60 mg PO ONCE 11/19/23 11/20/23 Unknown History capsule,extended release 12 hr atenolol 50 mg tablet 50 mg PO DAILY #90 tabs 11/27/23 12/15/23 Unknown Rx Allergies Allergy/AdvReac Type Severity Reaction Status Date / Time clopidogrel [From Plavix] Allergy swelling Verified 11/19/23 15:41 of hands isosorbide Allergy see comment Verified 11/19/23 15:41 codeine AdvReac nausea Verified 11/19/23 15:41 PFSH Acute 2 PFSH: Medical History Hypothyroidism Chronic kidney disease Aortic stenosis Coronary artery disease Type 2 diabetes mellitus Hyperlipidemia Hypertension Chronic myeloid leukemia Surgical History Status post surgical removal of malignant neoplasm of skin (2014) Excision of basal cell skin cancer History of partial colectomy Partial colectomy for diverticulitis approximately 2000 Hx of section 1978 and 1982 Hx of aortic valve replacement (2014) Bioprosthetic aortic valve replacement Hx of CABG (2014) Triple bypass Family History Family/Other CAD (coronary artery disease) Cancer Dementia Lung disease Stroke Daughter Chronic kidney disease (CKD) Other Hypertension Denies family history of Diabetes Clotting disorder Hyperlipidemia Psychiatric illness Suicide Anesthesia complication Bleeding disorder Social History Smoking and tobacco/nicotine status: never used tobacco/nicotine Alcohol intake: never Substance/Drug Use: never Vitals/I&O/Wt Last Vital Signs Temp 98.6 F 12/15/23 12:38 Pulse 76 12/15/23 12:38 Resp 26 H 12/15/23 12:38 BP 145/81 12/15/23 12:38 Pulse Ox 92 12/15/23 12:38 O2 Del Method Room Air 12/15/23 12:32 Physical Exam 2 Narrative: GENERAL: Patient is alert, awake and oriented x3. [] NECK: No jugular vein distension. [] HEENT: No cyanosis. No icterus. No pallor. [] HEART: Regular S1 and S2. No murmur, rub or gallop. [] LUNGS: Has bilateral crackles. CENTRAL NERVOUS SYSTEM: Grossly nonfocal. [] EXTREMITIES: Lower extremities with 1-2+ edema bilaterally. Data 12/15/23 13:55 12/15/23 13:55 A&P Assessment and plan (1) Dyspnea on exertion: (2) Hx of CABG: (3) Hx of aortic valve replacement: (4) Atherosclerosis of coronary artery of [place] heart without angina pectoris: (5) Dyslipidemia: (6) Type 2 diabetes mellitus: Qualifiers: Diabetes mellitus group home insulin use: with group home use Diabetes mellitus complication status: without complication Qualified Code(s): E11.9 - Type 2 diabetes mellitus without complications; Z79.4 - skilled nursing (current) use of insulin (7) Chronic myeloid leukemia: (8) Renal insufficiency: Plan Plan was to start hydration today however patient appears volume overloaded significantly. We will start IV Lasix. Monitor renal function in the morning. Close I&O's. Coronary angiogram based on labs tomorrow morning. She has significant orthopnea. Still having pain radiating to the neck and with exertion. Stress test was abnormal. Stress test also showing low LV systolic function. This is a change from prior echocardiogram. We will obtain echocardiogram as well. Attestations 2 Medical Necessity Statement*: Care expected to cross 2 midnights. Coding Level of Care Code Acute Code for [facility] Fwd Diagnoses Dyspnea on exertion R06.09 Hx of CABG Z95.1 Hx of aortic valve replacement Z95.2 Atherosclerosis of coronary artery of [place] heart without angina pectoris I25.10 Dyslipidemia E78.5 Type 2 diabetes mellitus without complication, with long-term current use of insulin E11.9; Z79.4 Diabetes mellitus intermodal owner operator truck driver insulin use: with group home use Diabetes mellitus complication status: without complication Chronic myeloid leukemia C92.10 Renal insufficiency N28.9
[2023-12-15 14:18] LABS: Basophils # 0.1 10^3/uL (0.0-0.1); Basophils % 0.8 %; Eosinophils # 0.3 10^3/uL (0.0-0.8); Eosinophils % 5.2 %; Hematocrit 37.3 % (36-47); Lymphocytes # 1.3 10^3/uL (0.8-4.8); Lymphocytes % 21.6 %; Mean Corpuscular HGB Conc 33.2 g/dL (30-55); Mean Corpuscular Hemoglobin 30.6 pg (27-33); Mean Corpuscular Volume 92.1 fl (85-98); Mean Platelet Volume 9.5 fL (7.4-10.4); Monocytes # 0.6 10^3/uL (0.2-0.9); Monocytes % 9.3 %; Neutrophils # 3.77 10^3/uL (1.8-7.7); Neutrophils % 62.8 %; Nucleated Red Blood Cells % 0 %; Platelet Count 195 10^3/cmm (157-399); Red Blood Count 4.05 10^6/uL (3.85-5.65); Red Cell Distribution Width 14.3 % (12.1-15.1); White Blood Count 6.01 10^3/uL (3.29-11.43)
[2023-12-15] MEDS: dilTIAZem ER (12HR) 60 mg Capsule PO (14:28)
[2023-12-15 14:33] LABS: Alanine Aminotransferase 38 U/L (0-33); Albumin Level 3.9 g/dL (3.5-5.2); Alkaline Phosphatase 106 U/L (35-105); Anion Gap 18.6 (5-19); Aspartate Amino Transferase 43 U/L (0-32); Blood Urea Nitrogen 29 mg/dL (8-23); Calcium 8.8 mg/dL (8.5-10.5); Carbon Dioxide 20 mmol/L (22-29); Chloride 99 mmol/L (98-107); Globulin 3.3 g/dL (1.3-4.6); Glomerular Filtration Rate 37.4 mL/min (90-130); Glucose 171 mg/dL (65-115); Osmolality Calculated 286 mOsm/kg (285-295); Potassium 4.6 mmol/L (3.5-5.1); Sodium 133 mmol/L (136-145); Total Bilirubin 0.6 mg/dL (0.15-1.2); Total Protein 7.2 g/dL (6.6-8.7)
[2023-12-15 16:30] VITALS: BP 145/81; PULSE 73; RESP 16; TEMP 37.2; O2SAT 94
[2023-12-15] MEDS: FUROsemide 10 mg/mL SDV 4mL 40 MG IVP (17:11)
[2023-12-15 20:00] VITALS: BP 107/61; PULSE 76; RESP 18; TEMP 37; O2SAT 90
[2023-12-16] VITALS: BP 114/71; PULSE 77; RESP 31; TEMP 36.9; O2SAT 96
--- NOTE | 2023-12-16 00:34 | USCV_ITS ---
Mitzi Gutierrez Age: 68 Gender: F : 1955 Exam Date: 12/16/2023 02:14 Ordering Phys: Clement Florentino M.D ([email or web address]) Technologist: PRAVEEN Exam Location: [facility] [place] Indication: CHF, SOB, CAD, CML, s/p CABG and [place] AVR 2012. BP: 114 / 71 HR: 83 Rhythm: mostly Sinus rhythm with some strings Afib Technical Quality: Adequate MEASUREMENTS (Male / Female) Normal Values 2D ECHO LV Diastolic Diameter PLAX 4.4 cm 4.2 - 5.9 / 3.9 - 5.3 cm LV Systolic Diameter PLAX 3.4 cm IVS Diastolic Thickness 1.2 cm 0.6 - 1.0 / 0.6 - 0.9 cm IVS Systolic Thickness 1.4 cm LVPW Diastolic Thickness 0.7 cm 0.6 - 1.0 / 0.6 - 0.9 cm LVPW Systolic Thickness 0.9 cm LVOT Diameter 1.8 cm LV Ejection Fraction 2D Teich 44.7 % LV Ejection Fraction MOD 2C 22.8 % LV Ejection Fraction 2C AL 20.7 % LA Diameter 3.6 cm LA Width 3.6 cm LA Height 5.1 cm RA Width 3.3 cm RA Height 4.2 cm Aorta at Sinotubular Diameter 2.3 cm IVC Diameter 1.6 cm M-MODE Aortic Annulus Diameter 2.6 cm LA Ao Ratio MM 1.2 MV E Point Septal Separation 1.1 cm DOPPLER AV Peak Velocity 134.0 cm/s LVOT Peak Velocity 39.0 cm/s AV Area Cont Eq vti 0.9 cm squared AV Area Cont Eq pk 0.8 cm squared MV Peak Velocity 161.0 cm/s MV Area PHT 4.8 cm squared Mitral E to A Ratio 1.5 MV E' Velocity 96.2 cm/s Mitral E to MV E' Ratio 46.5 Mitral E to LV E' Lateral Ratio 47.9 Mitral E to LV E' Septal Ratio 46.5 TR Peak Velocity 312.3 cm/s TR Peak Gradient 39.0 mmHg TV Peak E Velocity 66.0 cm/s Right Atrial Pressure 10.0 mmHg Pulmonary Artery Systolic Pressu 49.0 mmHg PV Peak Velocity 114.0 cm/s RV Acceleration Time 0.1 s RV Ejection Time 0.4 s RV AcT/ET 0.3 FINDINGS Left Ventricle Left ventricle is normal in size. LV systolic function is severely reduced with EF of 20 to 25%. Severe global hypokinesis is seen. Right Ventricle Normal in size. RV function is moderate to severely reduced. Right Atrium Normal in size Left Atrium Normal in size Mitral Valve Structurally normal mitral valve. Mild mitral regurgitation. Aortic Valve Bioprosthetic aortic valve seen. Normally functioning with DVI of 0.39. Tricuspid Valve Mild tricuspid regurgitation. RVSP is more than 60 mmHg. This is consistent with severe pulmonary hypertension. Pulmonic Valve Not well-visualized Pericardium Normal. Has pleural effusion seen Aorta Normal in size IVC Normal in size with no respiratory variation CONCLUSIONS LV systolic function is severely reduced with EF of 202%. RV function is moderate to severely reduced. Mild mitral regurgitation. Bioprosthetic aortic valve seen. Normally functioning DVI of 0.39. Mild tricuspid regurgitation. Severe pulmonary hypertension. Pleural effusion seen. Compared to prior echocardiogram from 2019, patient's LV systolic function has decreased significantly. Clement Florentino MD (Electronically Signed) Final Date: 16 December 2023 09:15 S
[2023-12-16 04:00] VITALS: BP 124/68; PULSE 83; RESP 17; TEMP 37; O2SAT 96
[2023-12-16] MEDS: FUROsemide 10 mg/mL SDV 4mL 40 MG IVP ×2 (05:46→17:34)
[2023-12-16] MEDS: levothyroxine 25 mcg Tablet PO (05:46)
[2023-12-16 05:51] LABS: Anion Gap 18.6 (5-19); Blood Urea Nitrogen 38 mg/dL (8-23); Calcium 8.7 mg/dL (8.5-10.5); Carbon Dioxide 23 mmol/L (22-29); Chloride 99 mmol/L (98-107); Glomerular Filtration Rate 32.1 mL/min (90-130); Glucose 182 mg/dL (65-115); Osmolality Calculated 296 mOsm/kg (285-295); Potassium 4.6 mmol/L (3.5-5.1); Sodium 136 mmol/L (136-145)
[2023-12-16 06:00] VITALS: BMI 25.0
--- NOTE | 2023-12-16 06:57 | XRR_ITS ---
PROCEDURE INFORMATION: Exam: XR Chest Exam date and time: 12/16/2023 7:53 AM Age: 68 years old Clinical indication: Shortness of breath TECHNIQUE: Imaging protocol: Radiologic exam of the chest. Views: 1 view. COMPARISON: CR XR chest 1V [id number] 06/17/2017 2:53 PM FINDINGS: Lungs: Boez-apfojpx-vstt-right lower lung opacification, predominantly ground-glass with more dense retrocardiac left lower lobe consolidation. Pleural spaces: Csri-xx-oeuapmku butt-hjognoc-xthq-right pleural effusions. No pneumothorax. Heart/Mediastinum: Partially obscured cardiac silhouette. Prosthetic aortic valve. Multiple mediastinal clips. Bones/joints: Prior median sternotomy. Degenerative changes of the acromioclavicular joints. XR/XR chest 1V portable [id number] IMPRESSION: Oyxp-ys-emuewnid hsja-diywbsk-zith-right pleural effusions with associated atelectasis. Pneumonia difficult to entirely exclude.
[2023-12-16 07:13] VITALS: BP 130/75; PULSE 83; RESP 18; TEMP 36.5; O2SAT 95
[2023-12-16 08:15] LABS: NT Pro B Type Natriuretic Pept 19755 pg/mL (0-125)
[2023-12-16] MEDS: aspirin 325 mg Tablet PO (08:30)
[2023-12-16] MEDS: hydroCHLOROthiazide 25 mg Tablet PO (08:30)
[2023-12-16] MEDS: diphenhydrAMINE 50 mg Capsule PO (08:30)
[2023-12-16] MEDS: atorvastatin 40 mg Tablet PO (08:30)
--- NOTE | 2023-12-16 10:38 | PM.PN ---
Subjective Subjective: Patient was started on diuretics yesterday. She is feeling better. No chest pain. Echo shows severely reduced LV systolic function. Pleural effusion also seen. Vitals/I&O/Wt Last Vital Signs Temp 97.7 F 12/16/23 07:13 Pulse 83 12/16/23 07:13 Resp 18 12/16/23 07:13 BP 130/75 12/16/23 07:13 Pulse Ox 95 12/16/23 07:13 O2 Del Method Nasal Cannula 12/16/23 07:13 O2 Flow Rate 1 12/16/23 07:13 12/15/23 12/16/23 12/16/23 22:59 06:59 14:59 Intake Total 450 / 450 Balance 450 / 450 Weight last 48 hrs Weight 119 lb 14.4 oz Weight 119 lb 14.4 oz Physical Exam Narrative: GENERAL: Patient is alert, awake and oriented x3. [] NECK: No jugular vein distension. [] HEENT: No cyanosis. No icterus. No pallor. [] HEART: Regular S1 and S2. No murmur, rub or gallop. [] LUNGS: Has bilateral crackles. CENTRAL NERVOUS SYSTEM: Grossly nonfocal. [] EXTREMITIES: Lower extremities with 1-2+ edema bilaterally. Data 12/15/23 13:55 12/16/23 04:44 A&P Assessment and plan (1) Dyspnea on exertion: (2) Hx of CABG: (3) Hx of aortic valve replacement: (4) Atherosclerosis of coronary artery of [place] heart without angina pectoris: (5) Dyslipidemia: (6) Type 2 diabetes mellitus: Qualifiers: Diabetes mellitus buttermaker continuous churn insulin use: with buttermaker continuous churn use Diabetes mellitus complication status: without complication Qualified Code(s): E11.9 - Type 2 diabetes mellitus without complications; Z79.4 - predatory animal exterminator (current) use of insulin (7) Chronic myeloid leukemia: (8) Renal insufficiency: (9) Congestive heart failure: Plan Patient was significantly volume overloaded. We have started Lasix. She is feeling better however still has crackles and lower extremity edema. Breathing has improved. Continue diuretics. Renal function has worsened today however we will continue to monitor. Echo shows severely reduced LV systolic function with EF of 20 to 25%. Pleural effusion also seen. Bioprosthetic aortic valve seen Will hold off on cardiac catheterization today. Once she is euvolemic and renal function stable, we will proceed with it. Attestations Medical Necessity Statement*: Care expected to cross 2 midnights. Initial plan was for coronary angiogram today however she is still volume overloaded and needs further diuresis. Also renal function worsening will need to be monitored. Will change status to inpatient Coding Level of Care Code Acute Code for [facility] Fwd Diagnoses Dyspnea on exertion R06.09 Hx of CABG Z95.1 Hx of aortic valve replacement Z95.2 Atherosclerosis of coronary artery of [place] heart without angina pectoris I25.10 Dyslipidemia E78.5 Type 2 diabetes mellitus without complication, with long-term current use of insulin E11.9; Z79.4 Diabetes mellitus buttermaker continuous churn insulin use: with shelter use Diabetes mellitus complication status: without complication Chronic myeloid leukemia C92.10 Renal insufficiency N28.9 Congestive heart failure I50.9
[2023-12-16 11:19] VITALS: BP 100/56; PULSE 88; RESP 23; TEMP 36.5; O2SAT 94
[2023-12-16 16:00] VITALS: BP 131/78; PULSE 79; RESP 22; TEMP 36; O2SAT 96
[2023-12-16 20:00] VITALS: BP 126/67; PULSE 81; RESP 20; TEMP 36.9; O2SAT 95
[2023-12-16] MEDS: atenolol 50 mg Tablet PO (20:23)
[2023-12-17] VITALS (7 sets, daily range): BP systolic 104–124; BP diastolic 58–79; PULSE 73–90; RESP 16–29; TEMP 36.6–37.2; O2SAT 90–97
[2023-12-17] MEDS: FUROsemide 10 mg/mL SDV 4mL 40 MG IVP (05:52)
[2023-12-17] MEDS: levothyroxine 25 mcg Tablet PO (05:52)
[2023-12-17] MEDS: hydroCHLOROthiazide 25 mg Tablet PO (08:32)
[2023-12-17] MEDS: atorvastatin 40 mg Tablet PO (08:32)
[2023-12-17 08:55] LABS: Anion Gap 18.1 (5-19); Blood Urea Nitrogen 41 mg/dL (8-23); Calcium 9.3 mg/dL (8.5-10.5); Carbon Dioxide 27 mmol/L (22-29); Chloride 95 mmol/L (98-107); Glomerular Filtration Rate 29.9 mL/min (90-130); Glucose 190 mg/dL (65-115); NT Pro B Type Natriuretic Pept 17359 pg/mL (0-125); Osmolality Calculated 297 mOsm/kg (285-295); Potassium 4.1 mmol/L (3.5-5.1); Sodium 136 mmol/L (136-145)
--- NOTE | 2023-12-17 11:13 | PC.SOCIAL ---
Pg 2 IMM Explained to pt Pg 2 IMM. No questions voiced. Provided pt a copy. Initialed, dated, & timed a copy & placed in chart.
--- NOTE | 2023-12-17 12:13 | PM.PN ---
Subjective Subjective: Patient is feeling much better. has diuresed quite well. Vitals/I&O/Wt Last Vital Signs Temp 97.9 F 12/17/23 07:33 Pulse 73 12/17/23 07:33 Resp 18 12/17/23 07:33 BP 104/59 12/17/23 07:33 Pulse Ox 96 12/17/23 07:33 O2 Del Method Nasal Cannula 12/17/23 07:33 O2 Flow Rate 1 12/16/23 16:00 12/16/23 12/17/23 12/17/23 22:59 06:59 14:59 Intake Total 1000 / 1360 740 / 2100 0 / 0 Output Total 1850 / 1850 950 / 2800 Balance -850 / -490 -210 / -700 0 / 0 Weight last 48 hrs Weight 116 lb 11.2 oz Weight 119 lb 14.4 oz Weight 119 lb 14.4 oz Physical Exam Narrative: GENERAL: Patient is alert, awake and oriented x3. [] NECK: No jugular vein distension. [] HEENT: No cyanosis. No icterus. No pallor. [] HEART: Regular S1 and S2. No murmur, rub or gallop. [] LUNGS: Has bilateral crackles. CENTRAL NERVOUS SYSTEM: Grossly nonfocal. [] EXTREMITIES: Lower extremities with 1-2+ edema bilaterally. Data 12/15/23 13:55 12/17/23 08:17 A&P Assessment and plan (1) Dyspnea on exertion: (2) Hx of CABG: (3) Hx of aortic valve replacement: (4) Atherosclerosis of coronary artery of [place] heart without angina pectoris: (5) Dyslipidemia: (6) Type 2 diabetes mellitus: Qualifiers: Diabetes mellitus termite helper insulin use: with group home use Diabetes mellitus complication status: without complication Qualified Code(s): E11.9 - Type 2 diabetes mellitus without complications; Z79.4 - salvage determiner (current) use of insulin (7) Chronic myeloid leukemia: (8) Renal insufficiency: (9) Congestive heart failure: Plan Patient's overall volume status has improved. We will hold diuretics today. Gentle hydration. Will assess a BMP in the morning and after the function has improved, we will proceed with coronary angiogram. Echo shows severely reduced LV systolic function with EF of 20 to 25%. Pleural effusion also seen. Bioprosthetic aortic valve seen Close I and Os. Attestations Medical Necessity Statement*: Care expected to cross 2 midnights. Coding Level of Care Code Acute Code for [facility] Fwd Diagnoses Dyspnea on exertion R06.09 Hx of CABG Z95.1 Hx of aortic valve replacement Z95.2 Atherosclerosis of coronary artery of [place] heart without angina pectoris I25.10 Dyslipidemia E78.5 Type 2 diabetes mellitus without complication, with long-term current use of insulin E11.9; Z79.4 Diabetes mellitus termite helper insulin use: with termite helper use Diabetes mellitus complication status: without complication Chronic myeloid leukemia C92.10 Renal insufficiency N28.9 Congestive heart failure I50.9
[2023-12-17] MEDS: sodium chloride 0.9% 1,000 ML 50 ML IV (18:46)
[2023-12-17] MEDS: atenolol 50 mg Tablet PO (20:20)
[2023-12-18 00:34] VITALS: BP 124/77; PULSE 77; RESP 18; O2SAT 93
[2023-12-18 04:29] VITALS: PULSE 72; RESP 16; O2SAT 93
[2023-12-18] MEDS: levothyroxine 25 mcg Tablet PO (05:29)
[2023-12-18 05:51] VITALS: BMI 24.3
[2023-12-18 07:06] VITALS: BP 115/51; PULSE 56; RESP 18; TEMP 36.6; O2SAT 96
[2023-12-18 07:08] VITALS: BP 115/51; PULSE 78; RESP 15; TEMP 36.6; O2SAT 95
[2023-12-18 07:26] LABS: Anion Gap 16.6 (5-19); Blood Urea Nitrogen 45 mg/dL (8-23); Calcium 8.6 mg/dL (8.5-10.5); Carbon Dioxide 27 mmol/L (22-29); Chloride 95 mmol/L (98-107); Glucose 145 mg/dL (65-115); Osmolality Calculated 294 mOsm/kg (285-295); Potassium 3.6 mmol/L (3.5-5.1); Sodium 135 mmol/L (136-145)
[2023-12-18 07:29] LABS: Basophils % 0.7 %; Eosinophils # 0.5 10^3/uL (0.0-0.8); Eosinophils % 8.5 %; Hematocrit 34.6 % (36-47); Lymphocytes # 1.7 10^3/uL (0.8-4.8); Lymphocytes % 27.7 %; Mean Corpuscular HGB Conc 34.1 g/dL (30-55); Mean Corpuscular Hemoglobin 30.6 pg (27-33); Mean Corpuscular Volume 89.9 fl (85-98); Mean Platelet Volume 9.7 fL (7.4-10.4); Monocytes # 0.9 10^3/uL (0.2-0.9); Monocytes % 15.5 %; Neutrophils # 2.84 10^3/uL (1.8-7.7); Neutrophils % 47.3 %; Nucleated Red Blood Cells % 0 %; Platelet Count 197 10^3/cmm (157-399); Red Blood Count 3.85 10^6/uL (3.85-5.65); Red Cell Distribution Width 14.1 % (12.1-15.1)
--- NOTE | 2023-12-18 08:22 | PM.DCS ---
Discharge Providers Date of Admission: 12/15/23 11:32 Date of Discharge: December 18, 2023 Attending Provider at Admission: Clement Florentino M.D Attending Provider at Discharge: Clement Florentino M.D Primary Care Provider: Willy Collins MD Diagnoses at Discharge Discharge Diagnosis (1) Dyspnea on exertion: Status: Acute (2) Hx of CABG: Status: Acute Permanent problem details: Triple bypass (3) Hx of aortic valve replacement: Status: Acute Permanent problem details: Bioprosthetic aortic valve replacement (4) Atherosclerosis of coronary artery of [place] heart without angina pectoris: Status: Acute (5) Dyslipidemia: Status: Acute (6) Type 2 diabetes mellitus: Status: Acute Qualifiers: Diabetes mellitus complication status: without complication Diabetes mellitus snf insulin use: with long term care social worker use Qualified Code(s): E11.9 - Type 2 diabetes mellitus without complications; Z79.4 - ocean transportation intermediary (current) use of insulin (7) Chronic myeloid leukemia: Status: Acute (8) Renal insufficiency: Status: Acute (9) Congestive heart failure: Status: Acute Reason for Visit Reason for Visit: Left heart cath Brief History: 68 year old female with past medical history of CML following with oncology, hypothyroidism and CAD s/p CABG and AVR several years ago sees Dr. Cardoso in the office. She had stress test recently performed as patient was having chest pain with exertion radiating to the jaw and neck. Stress test is abnormal. Plan for coronary angiogram. She has CKD. And was admitted today for prehydration. However patient mentions that she has been getting progressive worsening shortness of breath. Also has orthopnea. Hospital Course Hospital Course As patient was fluid overloaded, we stopped her diuretics. IV Lasix was given. She was admitted to the hospital. Renal function worsened. However she felt much better with diuresis. Lower extremity edema improved significantly. Was able to lay down flat. As renal function was not at baseline, she wanted to go home and have procedure done as outpatient. Shared decision made to discharge patient home. Will obtain BMP Friday. Once renal function improves, will start to Entresto. Atenolol and Cardizem stopped. Metoprolol 50 mg twice daily started. She will continue hydrochlorothiazide. Ordering Lasix 20 mg as needed based on weights. Oh will be scheduled for coronary angiogram as outpatient once renal function is stabilized. Physical Exam Narrative: GENERAL: Patient is alert, awake and oriented x3. [] NECK: No jugular vein distension. [] HEENT: No cyanosis. No icterus. No pallor. [] HEART: Regular S1 and S2. No murmur, rub or gallop. [] LUNGS: Has bilateral crackles. CENTRAL NERVOUS SYSTEM: Grossly nonfocal. [] EXTREMITIES: Lower extremities with 1+ edema bilaterally. Discharge Data Studies Completed and Pending Completed Studies During Hospitalization Category Date Time Status XR chest 1V portable [id number] Routine Exams 12/16/23 06:57 Completed CV. echo complete* [id number] Routine Ultrasound 12/16/23 00:34 Completed Radiology Impressions Chest X-Ray 12/16/23 06:57 IMPRESSION: Ciqs-qz-elnwvenv exxv-fpdhnqs-aqdg-right pleural effusions with associated atelectasis. Pneumonia difficult to entirely exclude. ADDENDUM: 12/16/23 [id number] Addendum to report additional findings of pulmonary vascular congestion and increased interstitial markings, suggesting congestive heart failure. Laboratory Results WBC 6.00 10^3/uL (3.29-11.43) 12/18/23 06:45 RBC 3.85 10^6/uL (3.85-5.65) 12/18/23 06:45 Hgb 11.80 g/dL (11.27-16.99) 12/18/23 06:45 Hct 34.6 % (36-47) L 12/18/23 06:45 MCV 89.9 fl (85-98) 12/18/23 06:45 MCH 30.6 pg (27-33) 12/18/23 06:45 MCHC 34.1 g/dL (30-55) 12/18/23 06:45 RDW 14.1 % (12.1-15.1) 12/18/23 06:45 Plt Count 197 10^3/cmm (157-399) 12/18/23 06:45 MPV 9.7 fL (7.4-10.4) 12/18/23 06:45 Neut % (Auto) 47.3 % 12/18/23 06:45 Lymph % (Auto) 27.7 % 12/18/23 06:45 Lewis % (Auto) 15.5 % 12/18/23 06:45 Eos % (Auto) 8.5 % 12/18/23 06:45 Baso % (Auto) 0.7 % 12/18/23 06:45 Neut # (Auto) 2.84 10^3/uL (1.8-7.7) 12/18/23 06:45 Lymph # (Auto) 1.7 10^3/uL (0.8-4.8) 12/18/23 06:45 Lewis # (Auto) 0.9 10^3/uL (0.2-0.9) 12/18/23 06:45 Eos # (Auto) 0.5 10^3/uL (0.0-0.8) 12/18/23 06:45 Baso # (Auto) 0.0 10^3/uL (0.0-0.1) 12/18/23 06:45 Nucleated RBC % (auto) 0 % 12/18/23 06:45 Nucleated RBCs # 0.0 /100WBC 12/18/23 06:45 Sodium 135 mmol/L (136-145) L 12/18/23 06:45 Potassium 3.6 mmol/L (3.5-5.1) 12/18/23 06:45 Chloride 95 mmol/L (98-107) L 12/18/23 06:45 Carbon Dioxide 27 mmol/L (22-29) 12/18/23 06:45 Anion Gap 16.6 (5-19) 12/18/23 06:45 BUN 45 mg/dL (8-23) H 12/18/23 06:45 Creatinine 1.8 mg/dL (0.5-0.9) H 12/18/23 06:45 GFR Calculation 28.0 mL/min (90-130) L 12/18/23 06:45 Glucose 145 mg/dL (65-115) H 12/18/23 06:45 Calculated Osmolality 294 mOsm/kg (285-295) 12/18/23 06:45 Calcium 8.6 mg/dL (8.5-10.5) 12/18/23 06:45 Total Bilirubin 0.6 mg/dL (0.15-1.2) 12/15/23 13:55 AST 43 U/L (0-32) H 12/15/23 13:55 ALT 38 U/L (0-33) H 12/15/23 13:55 Alkaline Phosphatase 106 U/L (35-105) H 12/15/23 13:55 NT-Pro-B Natriuret Pep 91832 pg/mL (0-125) H 12/17/23 08:17 Total Protein 7.2 g/dL (6.6-8.7) 12/15/23 13:55 Albumin 3.9 g/dL (3.5-5.2) 12/15/23 13:55 Globulin 3.3 g/dL (1.3-4.6) 12/15/23 13:55 Vitals Last Vital Signs Temp 97.8 F 12/18/23 07:08 Pulse 78 12/18/23 07:08 Resp 15 12/18/23 07:08 BP 115/51 12/18/23 07:08 Pulse Ox 95 12/18/23 07:08 O2 Del Method Room Air 12/18/23 07:08 O2 Flow Rate 1 12/16/23 16:00 Discharge Plan Discharge Patient Disposition: Home Condition: Stable Prescriptions: New metoprolol tartrate 50 mg tablet 50 mg PO BID Qty: 120 3RF Lasix 20 mg tablet 20 mg PO DAILY PRN (Reason: weight gain) Qty: 90 1RF Rx Instructions: Weigh yourself daily morning and take lasix if weight goes up by 1-2 lbs in a 24 hours period. Continued nitroglycerin [Nitrostat] 0.4 mg tablet, sublingual 0.4 mg SUBLINGUAL Q5M PRN (Reason: Chest Pain) Rx Instructions: do not exceed 3 doses per episode atorvastatin [Lipitor] 40 mg tablet 40 mg PO DAILY Qty: 90 3RF levothyroxine 25 mcg tablet See Rx Instructions .ROUTE .COMPLEX Qty: 90 0RF Dose Instruction: TAKE 1 TABLET BY MOUTH DAILY Rx Instructions: TAKE 1 TABLET BY MOUTH DAILY hydrochlorothiazide 25 mg tablet 25 mg PO DAILY Qty: 90 1RF Sprycel 50 mg tablet 50 mg PO DAILY Qty: 60 1RF Changed potassium chloride 10 mEq capsule, extended release 20 meq PO DAILY Qty: 90 3RF Discontinued diltiazem HCl 60 mg capsule,extended release 12 hr 60 mg PO DAILY atenolol 50 mg tablet 50 mg PO DAILY Qty: 90 3RF Discharge Orders: Discharge Order (Routine); Ordered 12/18/23 Ordered By: Clement Florentino Other Ambulatory Orders: Basic Metabolic Panel (Routine) Timeframe: 20231222 Facility: [facility] - Location: Lab - Main Lab Ordered By: Clement Florentino Referrals: Gloria Whalen FNP [Nurse Practitioner] - 7-10 days Discharge Diet: Cardiac and Low Salt Discharge Activity: Increase activity as tolerated Patient Instructions: Metoprolol (By mouth) (Lopressor, Toprol XL), Furosemide (By mouth) (Lasix), Potassium Chloride (By mouth) (K-Dur, K-Anu, K-Tab, Ron Mur), Heart Failure (DC), CHF Stoplight, Opioid Safety Discharge Attestations Time Spent in Discharge Care*: greater than 30 min Quality Metrics Clinical Quality Measures [ No reported AMI, CVA or VTE this stay] Coding Level of Care Code Acute Code for [facility] Fwd Diagnoses Dyspnea on exertion R06.09 Hx of CABG Z95.1 Hx of aortic valve replacement Z95.2 Atherosclerosis of coronary artery of [place] heart without angina pectoris I25.10 Dyslipidemia E78.5 Type 2 diabetes mellitus without complication, with long-term current use of insulin E11.9; Z79.4 Diabetes mellitus complication status: without complication Diabetes mellitus long term care social worker insulin use: with snf use Chronic myeloid leukemia C92.10 Renal insufficiency N28.9 Congestive heart failure I50.9
[2023-12-18] MEDS: hydroCHLOROthiazide 25 mg Tablet PO (08:53)
[2023-12-18] MEDS: atorvastatin 40 mg Tablet PO (08:53)
[2023-12-18 09:37] VITALS: BP 115/51; PULSE 78; RESP 15; TEMP 36.6; O2SAT 95
--- NOTE | 2023-12-18 10:17 | PC.NURSE ---
Discharge Note Patient discharged to home via POV accompanied by son. Discharge instructions reviewed with patient and/or transportation services representative. Mobile pharmacy medications and/or prescriptions provided. Belongings/home medications returned.
== END 2023-12-18 10:18 | disposition home or self-care (01) | DRG 641 ==
PROVIDERS: Admitting Provider Internal Medicine; PCP Family Medicine; Visit Provider Internal Medicine
DX: E87.70 Fluid overload, unspecified (principal); C92.10 Chronic myeloid leukemia, BCR/ABL-positive, not having achieved remission; I13.0 Hypertensive heart and chronic kidney disease with heart failure and stage 1 through stage 4 chronic kidney disease, or unspecified chronic kidney disease; I50.20 Unspecified systolic (congestive) heart failure; E03.9 Hypothyroidism, unspecified; I25.10 Atherosclerotic heart disease of native coronary artery without angina pectoris; E11.22 Type 2 diabetes mellitus with diabetic chronic kidney disease; N18.9 Chronic kidney disease, unspecified; E78.5 Hyperlipidemia, unspecified; Z79.69 Long term (current) use of other immunomodulators and immunosuppressants; Z95.1 Presence of aortocoronary bypass graft; Z95.3 Presence of xenogenic heart valve; Z85.828 Personal history of other malignant neoplasm of skin; Z90.49 Acquired absence of other specified parts of digestive tract
CPT/HCPCS: 36415; 71045; 80048; 80053; 83880; 85025; 93306; 96376; J1940; J7030; Q0163

== ENCOUNTER 2023-12-30 11:19 | Oncology outpatient (recurring) (ONCR) | payer MEDICARE, SELFPAY ==
[2023-12-29 10:56] LABS: Basophils # 0.1 10^3/uL (0.0-0.1); Basophils % 0.8 %; Eosinophils # 0.6 10^3/uL (0.0-0.8); Eosinophils % 9.2 %; Hematocrit 37.9 % (36-47); Lymphocytes % 30.8 %; Mean Corpuscular HGB Conc 33.2 g/dL (30-55); Mean Corpuscular Hemoglobin 29.8 pg (27-33); Mean Corpuscular Volume 89.6 fl (85-98); Mean Platelet Volume 9.4 fL (7.4-10.4); Monocytes # 0.8 10^3/uL (0.2-0.9); Monocytes % 11.5 %; Neutrophils # 3.13 10^3/uL (1.8-7.7); Neutrophils % 47.4 %; Nucleated Red Blood Cells % 0 %; Platelet Count 198 10^3/cmm (157-399); Red Blood Count 4.23 10^6/uL (3.85-5.65); Red Cell Distribution Width 13.9 % (12.1-15.1)
[2023-12-29 11:13] LABS: Alanine Aminotransferase 13 U/L (0-33); Albumin Level 4.1 g/dL (3.5-5.2); Alkaline Phosphatase 99 U/L (35-105); Anion Gap 18.3 (5-19); Aspartate Amino Transferase 25 U/L (0-32); Blood Urea Nitrogen 29 mg/dL (8-23); Carbon Dioxide 24 mmol/L (22-29); Chloride 96 mmol/L (98-107); Glomerular Filtration Rate 32.1 mL/min (90-130); Glucose 185 mg/dL (65-115); Osmolality Calculated 289 mOsm/kg (285-295); Potassium 4.3 mmol/L (3.5-5.1); Sodium 134 mmol/L (136-145); Total Bilirubin 0.8 mg/dL (0.15-1.2); Total Protein 7.1 g/dL (6.6-8.7)
[2024-01-07 01:20] LABS: P210 BCR ALB1 DETECTED; P210 BCR ALB1 Yes Test Yes; Prior Results NG; Source blood
== END 2024-01-01 23:59 | disposition home or self-care (01) ==
PROVIDERS: Nurse Practitioner Family; PCP Family Medicine; Visit Provider Internal Medicine Medical Oncology
DX: C92.10 Chronic myeloid leukemia, BCR/ABL-positive, not having achieved remission (principal); Z92.21 Personal history of antineoplastic chemotherapy; I50.9 Heart failure, unspecified; R53.83 Other fatigue; Z79.899 Other long term (current) drug therapy
CPT/HCPCS: 36415; 80053; 81206; 85025; 99213

== ENCOUNTER → 2023-12-31 14:11 | Outpatient (BNVA) | payer MEDICARE, SELFPAY | PROVIDERS: PCP Family Medicine; Visit Provider Nurse Practitioner Family | DX: I13.0 Hypertensive heart and chronic kidney disease with heart failure and stage 1 through stage 4 chronic kidney disease, or unspecified chronic kidney disease (principal); I50.21 Acute systolic (congestive) heart failure; E11.22 Type 2 diabetes mellitus with diabetic chronic kidney disease; N18.9 Chronic kidney disease, unspecified; I25.10 Atherosclerotic heart disease of native coronary artery without angina pectoris | CPT/HCPCS: 99214 ==

== ENCOUNTER 2024-01-06 13:05 | Outpatient (CLI) | payer MEDICARE, SELFPAY ==
[2024-01-06 13:45] LABS: Anion Gap 20.6 (5-19); Blood Urea Nitrogen 28 mg/dL (8-23); Calcium 9.2 mg/dL (8.5-10.5); Carbon Dioxide 26 mmol/L (22-29); Chloride 95 mmol/L (98-107); Glomerular Filtration Rate 32.1 mL/min (90-130); Glucose 164 mg/dL (65-115); Osmolality Calculated 293 mOsm/kg (285-295); Potassium 4.6 mmol/L (3.5-5.1); Sodium 137 mmol/L (136-145)
[2024-01-06 15:41] LABS: NT Pro B Type Natriuretic Pept 9537 pg/mL (0-125)
== END 2024-01-06 13:06 | disposition home or self-care (01) ==
LOC: LAB 13:07
PROVIDERS: Nurse Practitioner Family; PCP Family Medicine; Visit Provider Internal Medicine
DX: I25.10 Atherosclerotic heart disease of native coronary artery without angina pectoris (principal); I50.21 Acute systolic (congestive) heart failure
CPT/HCPCS: 36415; 80048; 83880

== ENCOUNTER 2024-01-13 14:34 | Outpatient (CLI) | payer MEDICARE, SELFPAY ==
[2024-01-13 15:20] LABS: Anion Gap 18.6 (5-19); Blood Urea Nitrogen 43 mg/dL (8-23); Calcium 8.8 mg/dL (8.5-10.5); Carbon Dioxide 25 mmol/L (22-29); Chloride 92 mmol/L (98-107); Glomerular Filtration Rate 26.3 mL/min (90-130); Glucose 200 mg/dL (65-115); Osmolality Calculated 290 mOsm/kg (285-295); Potassium 3.6 mmol/L (3.5-5.1); Sodium 132 mmol/L (136-145)
== END 2024-01-13 14:35 | disposition home or self-care (01) ==
LOC: LAB 14:38
PROVIDERS: Nurse Practitioner Family; PCP Family Medicine; Visit Provider Internal Medicine
DX: I50.9 Heart failure, unspecified (principal)
CPT/HCPCS: 80048

== ENCOUNTER 2024-01-27 13:49 | Oncology outpatient (recurring) (ONCR) | payer MEDICARE, SELFPAY ==
[2024-01-27 14:09] LABS: Basophils # 0.1 10^3/uL (0.0-0.1); Basophils % 0.5 %; Eosinophils # 0.6 10^3/uL (0.0-0.8); Eosinophils % 5.4 %; Hematocrit 39.3 % (36-47); Lymphocytes # 4.9 10^3/uL (0.8-4.8); Lymphocytes % 43.5 %; Mean Corpuscular HGB Conc 33.1 g/dL (30-55); Mean Corpuscular Hemoglobin 29.8 pg (27-33); Mean Corpuscular Volume 90.1 fl (85-98); Monocytes % 8.5 %; Neutrophils # 4.72 10^3/uL (1.8-7.7); Neutrophils % 41.7 %; Nucleated Red Blood Cells % 0 %; Platelet Count 120 10^3/cmm (157-399); Red Blood Count 4.36 10^6/uL (3.85-5.65); Red Cell Distribution Width 14.1 % (12.1-15.1); White Blood Count 11.31 10^3/uL (3.29-11.43)
[2024-01-27 14:35] LABS: Alanine Aminotransferase 15 U/L (0-33); Alkaline Phosphatase 86 U/L (35-105); Anion Gap 15.8 (5-19); Aspartate Amino Transferase 28 U/L (0-32); Blood Urea Nitrogen 27 mg/dL (8-23); Carbon Dioxide 28 mmol/L (22-29); Chloride 97 mmol/L (98-107); Globulin 2.7 g/dL (1.3-4.6); Glomerular Filtration Rate 29.9 mL/min (90-130); Glucose 166 mg/dL (65-115); Osmolality Calculated 293 mOsm/kg (285-295); Potassium 3.8 mmol/L (3.5-5.1); Sodium 137 mmol/L (136-145); Total Bilirubin 0.6 mg/dL (0.15-1.2); Total Protein 6.7 g/dL (6.6-8.7)
[2024-01-31 22:10] LABS: BCR ABL1 (IS) 0.025 (0.000); P210 BCR ALB1 DETECTED; P210 BCR ALB1 Yes Test Yes; Prior Results NG; Source Blood
== END 2024-02-01 23:59 | disposition home or self-care (01) ==
PROVIDERS: Internal Medicine; PCP Family Medicine; Visit Provider Internal Medicine Medical Oncology
DX: C92.10 Chronic myeloid leukemia, BCR/ABL-positive, not having achieved remission (principal); Z92.21 Personal history of antineoplastic chemotherapy; Z79.899 Other long term (current) drug therapy; N28.9 Disorder of kidney and ureter, unspecified; E11.9 Type 2 diabetes mellitus without complications
CPT/HCPCS: 36415; 80053; 81170; 81206; 85025; 99214

== ENCOUNTER → 2024-02-16 14:29 | Outpatient (BNVA) | payer MEDICARE, SELFPAY | PROVIDERS: PCP Family Medicine; Visit Provider Internal Medicine Cardiovascular Disease | DX: I25.10 Atherosclerotic heart disease of native coronary artery without angina pectoris (principal); R06.02 Shortness of breath; Z95.2 Presence of prosthetic heart valve; E78.5 Hyperlipidemia, unspecified; I49.8 Other specified cardiac arrhythmias; I12.9 Hypertensive chronic kidney disease with stage 1 through stage 4 chronic kidney disease, or unspecified chronic kidney disease; N18.9 Chronic kidney disease, unspecified; E11.51 Type 2 diabetes mellitus with diabetic peripheral angiopathy without gangrene; E11.22 Type 2 diabetes mellitus with diabetic chronic kidney disease | CPT/HCPCS: 99214 ==

== ENCOUNTER 2024-02-17 14:05 | Outpatient (CLI) | payer MEDICARE, SELFPAY ==
[2024-02-17 14:47] LABS: Anion Gap 16.9 (5-19); Blood Urea Nitrogen 36 mg/dL (8-23); Calcium 9.2 mg/dL (8.5-10.5); Carbon Dioxide 26 mmol/L (22-29); Chloride 100 mmol/L (98-107); Glucose 257 mg/dL (65-115); NT Pro B Type Natriuretic Pept 16614 pg/mL (0-125); Osmolality Calculated 305 mOsm/kg (285-295); Potassium 3.9 mmol/L (3.5-5.1); Sodium 139 mmol/L (136-145)
== END 2024-02-17 14:06 | disposition home or self-care (01) ==
LOC: LAB 14:07
PROVIDERS: Absent Provider Internal Medicine Cardiovascular Disease; PCP Family Medicine; Visit Provider Nurse Practitioner Family
DX: R06.02 Shortness of breath (principal); I25.10 Atherosclerotic heart disease of native coronary artery without angina pectoris; I10 Essential (primary) hypertension
CPT/HCPCS: 36415; 80048; 83880

== ENCOUNTER 2024-02-23 08:36 | Outpatient (CLI) | payer MEDICARE, SELFPAY ==
--- NOTE | 2024-02-23 08:45 | USCV_ITS ---
Mitzi Gutierrez Age: 68 Gender: F : 1955 Exam Date: 02/23/2024 08:50 Ordering Phys: Lei Cardoso MD ([email or web address]) Technologist: CT Exam Location: [facility] [place] Indication: PAD Risk Factors: Previous Vascular Surgery: RIGHT LEFT BP: 124.0 / 80.00 BP: 120.0/ 79.00 0 0 Waveform Velocity (cm/s) Velocity (cm/s) Waveform Triphasic 48.7 Iliac Prox 56.9 Triphasic Triphasic 61.0 Iliac Mid 42.0 Triphasic Triphasic 96.7 Iliac Distal 50.3 Triphasic Triphasic 68.0 DISPERSION MIXER 60.0 Triphasic Triphasic 45.0 SFA Prox 71.0 Triphasic Triphasic 56.0 SFA Mid 46.0 Triphasic Triphasic 47.0 SFA Dist 54.0 Triphasic Triphasic 61.0 POP 47.0 Triphasic N/A MARKET RESEARCH SENIOR PROJECT MANAGER N/A Biphasic 21.0 DPA 28.4 Biphasic 0.7 LANEY 0.7 FINDINGS RT MARKET RESEARCH SENIOR PROJECT MANAGER occluded, RT DPA 82 LT MARKET RESEARCH SENIOR PROJECT MANAGER occluded, LT DPA 91 Resting ABIs of 0.7 bilaterally Mild diffuse plaques in the iliac and femoral arteries bilaterally No Doppler flow signals in the posterior artery on the right side and either side CONCLUSIONS 1. Abnormal resting LANEY of 0.7 bilaterally suggesting moderate peripheral arterial disease. 2. Features of total occlusion of the posterior tibial arteries bilaterally Compared to the study from 07/20/2015, there is significant change in the LANEY. .The occlusion of the posterior tibial artery on the left side appears to be new Dr Lei Cardoso MD [facility] (Electronically Signed) Final Date: 25 February 2024 09:50 S
== END 2024-02-23 08:37 | disposition home or self-care (01) ==
LOC: RAD 08:37
PROVIDERS: PCP Family Medicine; Visit Provider Internal Medicine Cardiovascular Disease
DX: I73.9 Peripheral vascular disease, unspecified (principal); I77.1 Stricture of artery
CPT/HCPCS: 93925

== ENCOUNTER 2024-03-01 10:13 | Outpatient (CLI) | payer MEDICARE, SELFPAY ==
[2024-03-01 11:22] LABS: Anion Gap 15.7 (5-19); Blood Urea Nitrogen 26 mg/dL (8-23); Calcium 8.4 mg/dL (8.5-10.5); Carbon Dioxide 26 mmol/L (22-29); Chloride 102 mmol/L (98-107); Glomerular Filtration Rate 37.4 mL/min (90-130); Glucose 154 mg/dL (65-115); NT Pro B Type Natriuretic Pept 11075 pg/mL (0-125); Osmolality Calculated 298 mOsm/kg (285-295); Potassium 3.7 mmol/L (3.5-5.1); Sodium 140 mmol/L (136-145)
== END 2024-03-01 10:14 | disposition home or self-care (01) ==
PROVIDERS: Internal Medicine Cardiovascular Disease; Absent Provider Nurse Practitioner Family; PCP Family Medicine; Visit Provider Internal Medicine
DX: I50.21 Acute systolic (congestive) heart failure (principal)
CPT/HCPCS: 36415; 80048; 83880

== ENCOUNTER 2024-04-22 13:02 | Oncology outpatient (recurring) (ONCR) | payer MEDICARE, SELFPAY ==
[2024-04-14 14:49] LABS: Basophils % 0.5 %; Eosinophils # 0.3 10^3/uL (0.0-0.8); Eosinophils % 6.6 %; Hematocrit 33.5 % (36-47); Lymphocytes # 1.8 10^3/uL (0.8-4.8); Lymphocytes % 41.2 %; Mean Corpuscular HGB Conc 33.7 g/dL (30-55); Mean Corpuscular Hemoglobin 30.4 pg (27-33); Mean Corpuscular Volume 90.1 fl (85-98); Mean Platelet Volume 9.6 fL (7.4-10.4); Monocytes # 0.5 10^3/uL (0.2-0.9); Monocytes % 10.6 %; Neutrophils # 1.74 10^3/uL (1.8-7.7); Neutrophils % 40.9 %; Nucleated Red Blood Cells % 0 %; Platelet Count 152 10^3/cmm (157-399); Red Blood Count 3.72 10^6/uL (3.85-5.65); Red Cell Distribution Width 15.6 % (12.1-15.1); White Blood Count 4.25 10^3/uL (3.29-11.43)
[2024-04-14 15:08] LABS: Alanine Aminotransferase 17 U/L (0-33); Albumin Level 4.1 g/dL (3.5-5.2); Alkaline Phosphatase 97 U/L (35-105); Anion Gap 18.3 (5-19); Aspartate Amino Transferase 29 U/L (0-32); Blood Urea Nitrogen 44 mg/dL (8-23); Carbon Dioxide 26 mmol/L (22-29); Chloride 93 mmol/L (98-107); Globulin 2.7 g/dL (1.3-4.6); Glomerular Filtration Rate 26.3 mL/min (90-130); Glucose 259 mg/dL (65-115); Lactate Dehydrogenase 272 U/L (135-214); Osmolality Calculated 296 mOsm/kg (285-295); Potassium 4.3 mmol/L (3.5-5.1); Sodium 133 mmol/L (136-145); Total Bilirubin 0.7 mg/dL (0.15-1.2); Total Protein 6.8 g/dL (6.6-8.7)
[2024-04-21 17:45] LABS: BCR ABL1 (IS) 0.028 (0.000); P210 BCR ALB1 DETECTED; P210 BCR ALB1 Yes Test Yes; Prior Results NG; Source blood
== END 2024-05-02 23:59 | disposition home or self-care (01) ==
PROVIDERS: Internal Medicine; PCP Family Medicine; Visit Provider Internal Medicine Medical Oncology
DX: I42.9 Cardiomyopathy, unspecified (principal)
CPT/HCPCS: 36415; 80053; 81206; 83615; 85025; 99214

== ENCOUNTER 2024-05-19 14:45 | Oncology outpatient (recurring) (ONCR) | payer MEDICARE, SELFPAY ==
[2024-05-05 14:39] LABS: Basophils % 0.8 %; Eosinophils # 0.3 10^3/uL (0.0-0.8); Eosinophils % 6.3 %; Hematocrit 34.5 % (36-47); Lymphocytes # 2.1 10^3/uL (0.8-4.8); Lymphocytes % 41.6 %; Mean Corpuscular HGB Conc 33.3 g/dL (30-55); Mean Corpuscular Volume 90.1 fl (85-98); Mean Platelet Volume 9.6 fL (7.4-10.4); Monocytes # 0.5 10^3/uL (0.2-0.9); Monocytes % 10.3 %; Neutrophils # 2.07 10^3/uL (1.8-7.7); Neutrophils % 40.8 %; Nucleated Red Blood Cells % 0 %; Platelet Count 160 10^3/cmm (157-399); Red Blood Count 3.83 10^6/uL (3.85-5.65); White Blood Count 5.07 10^3/uL (3.29-11.43)
[2024-05-05 14:49] LABS: Alanine Aminotransferase 10 U/L (0-33); Albumin Level 4.2 g/dL (3.5-5.2); Alkaline Phosphatase 78 U/L (35-105); Aspartate Amino Transferase 23 U/L (0-32); Blood Urea Nitrogen 41 mg/dL (8-23); Calcium 9.2 mg/dL (8.5-10.5); Carbon Dioxide 26 mmol/L (22-29); Chloride 98 mmol/L (98-107); Globulin 2.7 g/dL (1.3-4.6); Glomerular Filtration Rate 29.9 mL/min (90-130); Glucose 151 mg/dL (65-115); Osmolality Calculated 295 mOsm/kg (285-295); Sodium 136 mmol/L (136-145); Total Bilirubin 0.8 mg/dL (0.15-1.2); Total Protein 6.9 g/dL (6.6-8.7)
[2024-05-19 14:36] LABS: Basophils % 0.9 %; Eosinophils # 0.5 10^3/uL (0.0-0.8); Eosinophils % 10.9 %; Hematocrit 36.2 % (36-47); Lymphocytes # 1.3 10^3/uL (0.8-4.8); Lymphocytes % 30.2 %; Mean Corpuscular HGB Conc 33.4 g/dL (30-55); Mean Corpuscular Hemoglobin 30.3 pg (27-33); Mean Corpuscular Volume 90.7 fl (85-98); Mean Platelet Volume 9.7 fL (7.4-10.4); Monocytes # 0.5 10^3/uL (0.2-0.9); Monocytes % 11.6 %; Neutrophils # 2.03 10^3/uL (1.8-7.7); Neutrophils % 46.2 %; Nucleated Red Blood Cells % 0 %; Platelet Count 160 10^3/cmm (157-399); Red Blood Count 3.99 10^6/uL (3.85-5.65); Red Cell Distribution Width 14.5 % (12.1-15.1)
[2024-05-19 14:49] LABS: Alanine Aminotransferase 12 U/L (0-33); Albumin Level 4.2 g/dL (3.5-5.2); Alkaline Phosphatase 73 U/L (35-105); Anion Gap 15.9 (5-19); Aspartate Amino Transferase 22 U/L (0-32); Blood Urea Nitrogen 29 mg/dL (8-23); Calcium 8.9 mg/dL (8.5-10.5); Carbon Dioxide 27 mmol/L (22-29); Chloride 100 mmol/L (98-107); Globulin 2.7 g/dL (1.3-4.6); Glomerular Filtration Rate 34.5 mL/min (90-130); Glucose 143 mg/dL (65-115); Lactate Dehydrogenase 233 U/L (135-214); Osmolality Calculated 296 mOsm/kg (285-295); Potassium 3.9 mmol/L (3.5-5.1); Sodium 139 mmol/L (136-145); Total Bilirubin 0.8 mg/dL (0.15-1.2); Total Protein 6.9 g/dL (6.6-8.7)
[2024-05-25 18:54] LABS: BCR ABL1 (IS) 0.005 (0.000); P210 BCR ALB1 DETECTED; P210 BCR ALB1 Yes Test Yes; Prior Results NG; Source blood
== END 2024-06-02 23:59 | disposition home or self-care (01) ==
PROVIDERS: PCP Family Medicine; Visit Provider Internal Medicine Medical Oncology
DX: Z53.9 Procedure and treatment not carried out, unspecified reason (principal); C92.10 Chronic myeloid leukemia, BCR/ABL-positive, not having achieved remission
CPT/HCPCS: 36415; 80053; 81206; 83615; 85025

== ENCOUNTER 2024-06-07 10:05 | Oncology outpatient (recurring) (ONCR) | payer MEDICARE, SELFPAY | END 2024-07-03 23:55 | disposition home or self-care (01) | PROVIDERS: PCP Family Medicine; Visit Provider Internal Medicine Medical Oncology | DX: C92.10 Chronic myeloid leukemia, BCR/ABL-positive, not having achieved remission (principal); I50.21 Acute systolic (congestive) heart failure; I13.0 Hypertensive heart and chronic kidney disease with heart failure and stage 1 through stage 4 chronic kidney disease, or unspecified chronic kidney disease; N18.9 Chronic kidney disease, unspecified; Z79.899 Other long term (current) drug therapy; Z92.21 Personal history of antineoplastic chemotherapy | CPT/HCPCS: 99214 ==

== ENCOUNTER 2024-07-03 19:08 | Emergency (ER) | payer MEDICARE, SELFPAY ==
[2024-07-03 19:30] VITALS: BP 155/79; PULSE 81; RESP 20; TEMP 36.4; O2SAT 98; BMI 19.8
--- NOTE | 2024-07-03 19:33 | ECG_ITS ---
[facility] Test Date: 2024-07-03 Pat Name: Mitzi Gutierrez Department: Room: Gender: Female Planning And Analysis Manager: : 1955 Requested By: Rudy Aguilera Order Number: [id number] Sabrina MD: Clement Florentino M.D. Measurements Intervals [place] Rate: 79 P: 77 MD: 133 QRS: -37 QRSD: 84 T: 100 QT: 401 QTc: 461 Interpretive Statements SINUS RHYTHM WITH SINUS ARRHYTHMIA POSSIBLE LEFT ATRIAL ENLARGEMENT [-0.1mV P-WAVE IN V1/V2] LEFT AXIS DEVIATION [QRS AXIS < -30] SEPTAL MYOCARDIAL INFARCTION , OF INDETERMINATE AGE [40+ ms Q WAVE IN V1/V2] Compared to ECG 11/19/2023 16:36:05 Left-axis deviation now present Right bundle-branch block no longer present Myocardial infarct finding still present Electronically Signed On 07-03-2024 21:53:29 CDT by Clement Florenitno M.D. [id number]
--- NOTE | 2024-07-03 19:42 | XRR_ITS ---
PROCEDURE INFORMATION: Exam: XR Chest Exam date and time: 07/03/2024 8:15 PM Age: 69 years old Clinical indication: Chest pressure; Patient HX: Pain with breathing; HX pleurisy, leukemia; HX cabg/avr TECHNIQUE: Imaging protocol: Radiologic exam of the chest. Views: 2 views. COMPARISON: CR XR chest 1V portable [id number] 12/16/2023 7:53 AM FINDINGS: Lungs: Emphysematous changes. Pleural spaces: Unremarkable. No pleural effusion. No pneumothorax. Heart/Mediastinum: Unremarkable. No cardiomegaly. Bones/joints: Sternotomy wires. XR/XR chest 3V [id number] IMPRESSION: 1. Negative for infiltrate. 2. Emphysematous changes. 3. Sternotomy wires.
[2024-07-03 20:02] LABS: Basophils % 0.4 %; Eosinophils # 0.3 10^3/uL (0.0-0.8); Hematocrit 40.6 % (36-47); Lymphocytes # 3.4 10^3/uL (0.8-4.8); Lymphocytes % 32.3 %; Mean Corpuscular Hemoglobin 30.5 pg (27-33); Mean Corpuscular Volume 89.8 fl (85-98); Mean Platelet Volume 9.6 fL (7.4-10.4); Monocytes # 1.1 10^3/uL (0.2-0.9); Monocytes % 10.2 %; Neutrophils # 5.66 10^3/uL (1.8-7.7); Neutrophils % 53.8 %; Nucleated Red Blood Cells % 0 %; Platelet Count 163 10^3/cmm (157-399); Red Blood Count 4.52 10^6/uL (3.85-5.65); Red Cell Distribution Width 13.5 % (12.1-15.1); White Blood Count 10.51 10^3/uL (3.29-11.43)
[2024-07-03 20:20] LABS: Alanine Aminotransferase 11 U/L (0-33); Albumin Level 4.4 g/dL (3.5-5.2); Alkaline Phosphatase 102 U/L (35-105); Anion Gap 18.3 (5-19); Aspartate Amino Transferase 19 U/L (0-32); Blood Urea Nitrogen 35 mg/dL (8-23); Calcium 9.5 mg/dL (8.5-10.5); Carbon Dioxide 27 mmol/L (22-29); Chloride 94 mmol/L (98-107); Creatinine Clr Calc Pharmacy 23.2871; Globulin 3.3 g/dL (1.3-4.6); Glucose 241 mg/dL (65-115); Osmolality Calculated 296 mOsm/kg (285-295); Potassium 4.3 mmol/L (3.5-5.1); Sodium 135 mmol/L (136-145); Total Bilirubin 0.6 mg/dL (0.15-1.2); Total Protein 7.7 g/dL (6.6-8.7)
[2024-07-04 00:33] VITALS: BP 137/48; PULSE 75; RESP 8; O2SAT 94
[2024-07-04 00:54] LABS: Troponin(5th) Baseline 36 ng/L (0-10)
[2024-07-04 00:55] LABS: Troponin 5 2HR 34.15 ng/L (0-10)
[2024-07-04 00:56] LABS: Troponin 5 2HR Delta -1.85 ABS# (0-10)
[2024-07-04 01:33] VITALS: BP 132/41; PULSE 75; RESP 10; O2SAT 97
[2024-07-04] MEDS: dexamethasone 10 mg/mL INJ 8 MG PO (01:50)
--- NOTE | 2024-07-04 05:54 | W.ED.SOB ---
HPI - SOB/Dyspnea General: Chief Complaint: Shortness of Breath/Dyspnea Stated Complaint: left side pain Time Seen by Provider: 07/04/24 00:22 History of Present Illness: HPI Narrative: 69 yo female with multiple problems including CAD post CABG presenting with sharp left sided chest pain. She says pain started last night. It is identical to a pain she had 20 years ago she says when she was diagnosed with pleurisy. She's not really having shortness of breath. She does state that it hurts to cough. No fever or sputum production. No extremity swelling. Related Data Home Medications Medication Instructions Recorded Confirmed nitroglycerin 0.4 mg sublingual 0.4 mg sublingual Q5M PRN Chest 05/02/20 06/07/24 tablet (Nitrostat) Pain atenolol 50 mg tablet mg PO DAILY 01/27/24 06/07/24 diltiazem HCl 60 mg mg PO 01/27/24 06/07/24 capsule,extended release 12 hr aspirin 81 mg tablet,delayed 81 mg PO DAILY PRN 06/07/24 06/07/24 release (Adult Aspirin Regimen) Previous Rx's Medication Instructions Recorded atorvastatin 40 mg tablet (Lipitor) 20 mg (1/2 x 40 mg) PO DAILY #90 02/16/24 tabs potassium chloride 10 mEq 20 meq (2 x 10 mEq) PO DAILY #90 02/20/24 capsule,extended release caps lactulose 10 gram/15 mL oral See Rx Instructions .Route 03/18/24 solution .COMPLEX #1,350 mL furosemide 20 mg tablet See Rx Instructions .Route 05/20/24 .COMPLEX #90 tabs hydrocodone 5 mg-acetaminophen 325 1 tab PO Q8H PRN pain #7 tabs 07/04/24 mg tablet Allergies Allergy/AdvReac Type Severity Reaction Status Date / Time clopidogrel [From Plavix] Allergy swelling Verified 07/03/24 19:42 of hands isosorbide Allergy see comment Verified 07/03/24 19:42 metoprolol Allergy Unknown Verified 07/03/24 19:42 codeine AdvReac nausea Verified 07/03/24 19:42 [facility] ED PFSH: Medical History Peripheral arterial disease Dyspnea on exertion Hypothyroidism Chronic kidney disease Aortic stenosis Coronary artery disease Type 2 diabetes mellitus Hyperlipidemia Hypertension Chronic myeloid leukemia Surgical History Status post surgical removal of malignant neoplasm of skin (2015) Excision of basal cell skin cancer History of partial colectomy Partial colectomy for diverticulitis approximately 2000 Hx of section 1978 and 1982 Hx of aortic valve replacement (2014) Bioprosthetic aortic valve replacement Hx of CABG (2014) Triple bypass Family History Family/Other CAD (coronary artery disease) Cancer Dementia Lung disease Stroke Daughter Chronic kidney disease (CKD) Other Hypertension Denies family history of Diabetes Clotting disorder Hyperlipidemia Psychiatric illness Suicide Anesthesia complication Bleeding disorder Social History Smoking and tobacco/nicotine status: never used tobacco/nicotine Alcohol intake: never Substance/Drug Use: never Physical Exam Const: COMMON NORMALS: no acute distress GENERAL APPEARANCE: cooperative and frail appearing; not ill appearing HENMT: COMMON NORMALS: normocephalic, atraumatic and Normal external nose present HEAD & SCALP: normocephalic and atraumatic FACE & SINUS: normal facial exam and face symmetric NOSE: Normal external nose present Eye: COMMON NORMALS: Equal, round and reactive pupils present and EOMs intact bilaterally PUPIL: Yes Equal, round and reactive pupils present Neck/C-Spine: GENERAL: Yes trachea midline Chest: CHEST: Yes Symmetrical chest wall rise and Yes tenderness (ant and lateral chest wall. ) Resp: COMMON NORMALS: normal respiratory effort, No retractions, No use of accessory muscles and clear to auscultation bilaterally AUSCULTATION: clear to auscultation bilaterally Cardio: COMMON NORMALS: regular rate and regular rhythm RATE: regular rate RHYTHM: regular rhythm GI: COMMON NORMALS: Normal to inspection, nondistended, normoactive bowel sounds present Extremity: COMMON NORMALS: no pedal edema Neuro: DMITRI COMA SCALE: document GCS findings Dmitri coma scale eye opening: Spontaneous Dmitri coma scale verbal response: Orientated Dmitri coma scale motor response: Obey commands Dmitri coma scale total score: 15 SENSORY EXAM: Yes extremities (intact) Psych: COMMON NORMALS: speech normal SPEECH: Yes normal speech Skin: COMMON NORMALS: no rashes or lesions noted GENERAL SKIN EXAM: no rashes or lesions noted Course Vital Signs: Vital signs: Vital Signs Temperature 97.5 F L 07/03/24 19:30 Pulse Rate 75 07/04/24 01:33 Respiratory Rate 10 L 07/04/24 01:33 Blood Pressure 132/41 07/04/24 01:33 Pulse Oximetry 97 07/04/24 01:33 Oxygen Delivery Me thod Room Air 07/03/24 19:30 MDM - SOB/Dyspnea Medical Decision Making Reproducible left sided chest pain. She is non tachycardic. She is not hypoxic. EKG shows no acute ST wave changes. Her creatinine is at her baseline of 1.6. Chest X-ray is negative for infiltrate or pneumothorax. Delta troponin is -2. She has given one dose of dexamethasone here. Hydrocodone as needed for pain. She was told she may take low dose anti inflammatories for up to two days or so, but warned against this otherwise given her chronic kidney disease and history of coronary disease. She is stable for discharge and will return for worsening or new symptoms. Lab Data 07/03/24 19:50 07/03/24 19:50 Labs/Radiology: Radiology Impressions Chest X-Ray 07/03/24 19:42 IMPRESSION: 1. Negative for infiltrate. 2. Emphysematous changes. 3. Sternotomy wires. Laboratory Results WBC 10.51 10^3/uL (3.29-11.43) 07/03/24 19:50 RBC 4.52 10^6/uL (3.85-5.65) 07/03/24 19:50 Hgb 13.80 g/dL (11.27-16.99) 07/03/24 19:50 Hct 40.6 % (36-47) 07/03/24 19:50 MCV 89.8 fl (85-98) 07/03/24 19:50 MCH 30.5 pg (27-33) 07/03/24 19:50 MCHC 34.0 g/dL (30-55) 07/03/24 19:50 RDW 13.5 % (12.1-15.1) 07/03/24 19:50 Plt Count 163 10^3/cmm (157-399) 07/03/24 19:50 MPV 9.6 fL (7.4-10.4) 07/03/24 19:50 Neut % (Auto) 53.8 % 07/03/24 19:50 Lymph % (Auto) 32.3 % 07/03/24 19:50 [place] % (Auto) 10.2 % 07/03/24 19:50 Eos % (Auto) 3.0 % 07/03/24 19:50 Baso % (Auto) 0.4 % 07/03/24 19:50 Neut # (Auto) 5.66 10^3/uL (1.8-7.7) 07/03/24 19:50 Lymph # (Auto) 3.4 10^3/uL (0.8-4.8) 07/03/24 19:50 [place] # (Auto) 1.1 10^3/uL (0.2-0.9) H 07/03/24 19:50 Eos # (Auto) 0.3 10^3/uL (0.0-0.8) 07/03/24 19:50 Baso # (Auto) 0.0 10^3/uL (0.0-0.1) 07/03/24 19:50 Nucleated RBC % (auto) 0 % 07/03/24 19:50 Nucleated RBCs # 0.0 /100WBC 07/03/24 19:50 Sodium 135 mmol/L (136-145) L 07/03/24 19:50 Potassium 4.3 mmol/L (3.5-5.1) 07/03/24 19:50 Chloride 94 mmol/L (98-107) L 07/03/24 19:50 Carbon Dioxide 27 mmol/L (22-29) 07/03/24 19:50 Anion Gap 18.3 (5-19) 07/03/24 19:50 BUN 35 mg/dL (8-23) H 07/03/24 19:50 Creatinine 1.6 mg/dL (0.5-0.9) H 07/03/24 19:50 GFR Calculation 32.0 mL/min (90-130) L 07/03/24 19:50 Glucose 241 mg/dL (65-115) H 07/03/24 19:50 Calculated Osmolality 296 mOsm/kg (285-295) H 07/03/24 19:50 Calcium 9.5 mg/dL (8.5-10.5) 07/03/24 19:50 Total Bilirubin 0.6 mg/dL (0.15-1.2) 07/03/24 19:50 AST 19 U/L (0-32) 07/03/24 19:50 ALT 11 U/L (0-33) 07/03/24 19:50 Alkaline Phosphatase 102 U/L (35-105) 07/03/24 19:50 Troponin T Baseline 36 ng/L (0-10) H 07/03/24 19:20 Troponin T 120 Minute 34.15 ng/L (0-10) H 07/04/24 00:33 Delta Troponin T -1.85 ABS# (0-10) L 07/04/24 00:33 Total Protein 7.7 g/dL (6.6-8.7) 07/03/24 19:50 Albumin 4.4 g/dL (3.5-5.2) 07/03/24 19:50 Globulin 3.3 g/dL (1.3-4.6) 07/03/24 19:50 All radiology interpretation(s) finalized by discharge Discharge Plan Discharge Patient Disposition: Home Clinical Impression: Chest pain, atypical Condition: Stable Prescriptions: New hydrocodone-acetaminophen 5-325 mg tablet 1 tab PO Q8H PRN (Reason: pain) Qty: 7 0RF No Action nitroglycerin [Nitrostat] 0.4 mg tablet, sublingual 0.4 mg SUBLINGUAL Q5M PRN (Reason: Chest Pain) Rx Instructions: do not exceed 3 doses per episode atorvastatin [Lipitor] 40 mg tablet 20 mg PO DAILY Qty: 90 3RF diltiazem HCl 60 mg capsule,extended release 12 hr PO atenolol 50 mg tablet PO DAILY aspirin [Adult Aspirin Regimen] 81 mg tablet,delayed release (DR/EC) 81 mg PO DAILY PRN potassium chloride 10 mEq capsule, extended release 20 meq PO DAILY Qty: 90 3RF lactulose 10 gram/15 mL solution See Rx Instructions .ROUTE .COMPLEX Qty: 1350 3RF Dose Instruction: TAKE 15 ML BY MOUTH DAILY NEEDED FOR CONSTIPATION Rx Instructions: TAKE 15 ML BY MOUTH DAILY NEEDED FOR CONSTIPATION furosemide 20 mg tablet See Rx Instructions .ROUTE .COMPLEX Qty: 90 0RF Dose Instruction: TAKE 1 TABLET BY MOUTH DAILY NEEDED;WEIGH DAILY IN THE MORNING AND TAKE LASIX IF WEIGHT GOES UP BY 1 TO 2 LBS IN 24 HOURS. Rx Instructions: TAKE 1 TABLET BY MOUTH DAILY NEEDED;WEIGH DAILY IN THE MORNING AND TAKE LASIX IF WEIGHT GOES UP BY 1 TO 2 LBS IN 24 HOURS. Discharge Orders: Discharge ED (Routine); Ordered 07/04/24 Ordered By: Rudy Ortiz Referrals: Willy Collins MD [Primary Care Provider] - 1-3 days Patient Instructions: Chest Wall Pain (ED), Opioid Safety, Pain Management Activity Restrictions/Additional Instructions: Return for worsening pain despite treatment, shortness of breath, fever, any other concerning symptoms. See your doctor this coming week. Coding Level of Care Code ED Workers Compensation Claims Examiner for Reese De La Cruz
== END 2024-07-04 02:10 | disposition home or self-care (01) ==
PROVIDERS: Emergency Provider Emergency Medicine; PCP Family Medicine
DX: R07.89 Other chest pain (principal); Z79.82 Long term (current) use of aspirin; E11.22 Type 2 diabetes mellitus with diabetic chronic kidney disease; I12.9 Hypertensive chronic kidney disease with stage 1 through stage 4 chronic kidney disease, or unspecified chronic kidney disease; N18.9 Chronic kidney disease, unspecified; I25.10 Atherosclerotic heart disease of native coronary artery without angina pectoris; E78.5 Hyperlipidemia, unspecified; Z85.6 Personal history of leukemia; Z95.1 Presence of aortocoronary bypass graft
CPT/HCPCS: 36415; 71047; 80053; 84484; 85025; 93005; 99285; J1100

== ENCOUNTER 2024-07-23 09:37 | Oncology outpatient (recurring) (ONCR) | payer MEDICARE, SELFPAY ==
--- NOTE | 2024-07-23 10:00 | USCV_ITS ---
Mitzi Gutierrez Age: 69 Gender: F : 1955 Exam Date: 07/23/2024 10:04 Ordering Phys: Lawrence Leger MD Technologist: Nico Baird [place] [facility] [place]ication: cardiomyopathy BP: / HR: 56 Rhythm: Sinus Technical Quality: Adequate MEASUREMENTS (Male / Female) Normal Values 2D ECHO LV Diastolic Diameter PLAX 4.0 cm 4.2 - 5.9 / 3.9 - 5.3 cm IVS Diastolic Thickness 0.8 cm 0.6 - 1.0 / 0.6 - 0.9 cm IVS Systolic Thickness 0.8 cm LVPW Diastolic Thickness 1.2 cm 0.6 - 1.0 / 0.6 - 0.9 cm LVPW Systolic Thickness 1.7 cm LVOT Diameter 2.0 cm LV Ejection Fraction 2D Teich 31.4 % LV Ejection Fraction MOD 4C 43.1 % LV Ejection Fraction MOD 2C 45.0 % LV Ejection Fraction 2C AL 44.8 % LA Diameter 3.8 cm RA Systolic Volume 4C AL 24.7 ml RA Systolic Volume 4C MOD 24.3 ml LA Sys Volume AL 37.6 cm cubed LA Sys Volume Index AL 26.5 cm cubed/m squared Aorta at Sinotubular Diameter 1.6 cm IVC Diameter 1.4 cm M-MODE LA Ao Ratio MM 1.1 AV Cusp Separation MM 0.8 cm DOPPLER AV Peak Velocity 175.0 cm/s LVOT Peak Velocity 50.0 cm/s AV Area Cont Eq vti 1.0 cm squared AV Area Cont Eq pk 0.9 cm squared MV Peak Velocity 150.0 cm/s MV Area PHT 1.9 cm squared Mitral E to A Ratio 1.3 TR Peak Velocity 375.0 cm/s TR Peak Gradient 56.3 mmHg TR Mean Velocity 276.0 cm/s TR Mean Gradient 34.7 mmHg TR Velocity Time Integral 107.7 cm PV Peak Velocity 139.7 cm/s RV Ejection Time 0.3 s FINDINGS Left Ventricle Diffuse hypokinesis of the left ventricular ejection fraction of 45%.Grade III/IV diastolic dysfunction (restrictive filling pattern), severely elevated filling pressures. Right Ventricle The right ventricle is normal in size and function. Right Atrium The right atrium is normal in size. Left Atrium Mildly increased left atrial size. Mitral Valve Thickened mitral valve. Grade 2 bileaflet prolapse. Moderate mitral valve regurgitation. Multiple regurgitant jets Aortic Valve Thickened aortic valve. Tricuspid Valve Trace to mild tricuspid valve regurgitation. Thickened tricuspid valve. Estimated pulmonary artery peak systolic pressure 35 mmHg Pulmonic Valve Thickened pulmonic valve. Pericardium Normal pericardium without effusion. Aorta Normal ascending aorta dimension. IVC Normal inferior vena cava. CONCLUSIONS Diffuse hypokinesis of the left ventricular ejection fraction of 45%.Grade III/IV diastolic dysfunction (restrictive filling pattern), severely elevated filling pressures. Mildly increased left atrial size. Thickened mitral valve. Grade 2 bileaflet prolapse. Moderate mitral valve regurgitation. Multiple regurgitant jets. Thickened aortic valve. Trace to mild tricuspid valve regurgitation. Thickened tricuspid valve. Estimated pulmonary artery peak systolic pressure 35 mmHg There is no pericardial effusion. There are no intracardiac masses. Compared to the study from 12/16/2023, there is significant improvement in the LV ejection fraction from 25% to 45% Dr Lei Cardoso MD [facility] (Electronically Signed) Final Date: 24 July 2024 19:39 S
[2024-07-23 11:27] LABS: Anion Gap 15.1 (5-19); Blood Urea Nitrogen 28 mg/dL (8-23); Calcium 9.3 mg/dL (8.5-10.5); Carbon Dioxide 28 mmol/L (22-29); Chloride 98 mmol/L (98-107); Glomerular Filtration Rate 37.3 mL/min (90-130); Glucose 157 mg/dL (65-115); Osmolality Calculated 293 mOsm/kg (285-295); Potassium 4.1 mmol/L (3.5-5.1); Sodium 137 mmol/L (136-145)
== END 2024-08-02 23:59 | disposition home or self-care (01) ==
LOC: RAD 09:38 → ONCMED 10:42
PROVIDERS: PCP Family Medicine; Visit Provider Internal Medicine Medical Oncology
DX: I50.21 Acute systolic (congestive) heart failure (principal); C92.10 Chronic myeloid leukemia, BCR/ABL-positive, not having achieved remission; I42.9 Cardiomyopathy, unspecified; I50.1 Left ventricular failure, unspecified; I34.0 Nonrheumatic mitral (valve) insufficiency; I35.8 Other nonrheumatic aortic valve disorders; I07.1 Rheumatic tricuspid insufficiency; I07.9 Rheumatic tricuspid valve disease, unspecified
CPT/HCPCS: 36415; 80048; 93306

== ENCOUNTER 2024-08-19 13:43 | Oncology outpatient (recurring) (ONCR) | payer MEDICARE, SELFPAY ==
[2024-08-19 14:07] LABS: Basophils # 0.1 10^3/uL (0.0-0.1); Eosinophils # 0.3 10^3/uL (0.0-0.8); Hematocrit 39.6 % (36-47); Lymphocytes # 1.6 10^3/uL (0.8-4.8); Lymphocytes % 22.8 %; Mean Corpuscular HGB Conc 32.8 g/dL (30-55); Mean Corpuscular Hemoglobin 29.3 pg (27-33); Mean Corpuscular Volume 89.2 fl (85-98); Mean Platelet Volume 9.1 fL (7.4-10.4); Monocytes # 0.7 10^3/uL (0.2-0.9); Monocytes % 9.5 %; Neutrophils % 61.4 %; Nucleated Red Blood Cells % 0 %; Platelet Count 181 10^3/cmm (157-399); Red Blood Count 4.44 10^6/uL (3.85-5.65); Red Cell Distribution Width 13.7 % (12.1-15.1); White Blood Count 6.84 10^3/uL (3.29-11.43)
[2024-08-19 14:24] LABS: Alanine Aminotransferase 10 U/L (0-33); Albumin Level 4.2 g/dL (3.5-5.2); Alkaline Phosphatase 81 U/L (35-105); Anion Gap 15.4 (5-19); Aspartate Amino Transferase 25 U/L (0-32); Blood Urea Nitrogen 35 mg/dL (8-23); Calcium 8.8 mg/dL (8.5-10.5); Carbon Dioxide 26 mmol/L (22-29); Chloride 100 mmol/L (98-107); Globulin 2.6 g/dL (1.3-4.6); Glomerular Filtration Rate 40.6 mL/min (90-130); Glucose 162 mg/dL (65-115); Lactate Dehydrogenase 215 U/L (135-214); Osmolality Calculated 296 mOsm/kg (285-295); Potassium 4.4 mmol/L (3.5-5.1); Sodium 137 mmol/L (136-145); Total Bilirubin 0.6 mg/dL (0.15-1.2); Total Protein 6.8 g/dL (6.6-8.7)
[2024-08-24 21:37] LABS: BCR ABL1 (IS) 0.005 (0.000); P210 BCR ALB1 DETECTED; P210 BCR ALB1 Yes Test Yes; Prior Results NG; Source blood
== END 2024-09-02 23:59 | disposition home or self-care (01) ==
LOC: ONCMED 13:45
PROVIDERS: Internal Medicine Medical Oncology; PCP Family Medicine; Visit Provider Internal Medicine Hematology & Oncology
DX: C92.10 Chronic myeloid leukemia, BCR/ABL-positive, not having achieved remission (principal); I50.21 Acute systolic (congestive) heart failure
CPT/HCPCS: 36415; 80053; 81206; 83615; 85025

== ENCOUNTER 2024-09-23 13:16 | Oncology outpatient (recurring) (ONCR) | payer MEDICARE, SELFPAY ==
[2024-09-16 14:40] LABS: Basophils # 0.1 10^3/uL (0.0-0.1); Basophils % 0.9 %; Eosinophils # 0.4 10^3/uL (0.0-0.8); Lymphocytes # 1.4 10^3/uL (0.8-4.8); Lymphocytes % 26.9 %; Mean Corpuscular HGB Conc 33.3 g/dL (30-55); Mean Corpuscular Volume 87.1 fl (85-98); Mean Platelet Volume 9.2 fL (7.4-10.4); Monocytes # 0.5 10^3/uL (0.2-0.9); Monocytes % 10.1 %; Neutrophils # 2.87 10^3/uL (1.8-7.7); Neutrophils % 53.7 %; Nucleated Red Blood Cells % 0 %; Platelet Count 160 10^3/cmm (157-399); Red Blood Count 4.59 10^6/uL (3.85-5.65); Red Cell Distribution Width 13.8 % (12.1-15.1); White Blood Count 5.35 10^3/uL (3.29-11.43)
[2024-09-16 15:07] LABS: Alanine Aminotransferase 13 U/L (0-33); Alkaline Phosphatase 68 U/L (35-105); Anion Gap 13.7 (5-19); Aspartate Amino Transferase 24 U/L (0-32); Blood Urea Nitrogen 27 mg/dL (8-23); Calcium 8.7 mg/dL (8.5-10.5); Carbon Dioxide 26 mmol/L (22-29); Chloride 104 mmol/L (98-107); Globulin 2.3 g/dL (1.3-4.6); Glomerular Filtration Rate 40.6 mL/min (90-130); Glucose 144 mg/dL (65-115); Lactate Dehydrogenase 215 U/L (135-214); Osmolality Calculated 296 mOsm/kg (285-295); Potassium 4.7 mmol/L (3.5-5.1); Sodium 139 mmol/L (136-145); Total Bilirubin 0.6 mg/dL (0.15-1.2); Total Protein 6.3 g/dL (6.6-8.7)
[2024-09-23 15:00] LABS: P210 BCR ALB1 NOT DETECTED; P210 BCR ALB1 Yes Test Yes; Prior Results NG; Source blood
== END 2024-10-02 23:59 | disposition home or self-care (01) ==
PROVIDERS: Nurse Practitioner Family; PCP Family Medicine; Visit Provider Internal Medicine
DX: C92.10 Chronic myeloid leukemia, BCR/ABL-positive, not having achieved remission (principal); I42.9 Cardiomyopathy, unspecified; Z79.899 Other long term (current) drug therapy
CPT/HCPCS: 36415; 80053; 81206; 83615; 85025; 99213

== ENCOUNTER 2024-11-04 13:14 | Oncology outpatient (recurring) (ONCR) | payer MEDICARE, SELFPAY ==
[2024-11-04 13:45] LABS: Basophils # 0.1 10^3/uL (0.0-0.1); Basophils % 0.9 %; Eosinophils # 0.5 10^3/uL (0.0-0.8); Eosinophils % 7.1 %; Hematocrit 40.9 % (36-47); Lymphocytes # 1.8 10^3/uL (0.8-4.8); Lymphocytes % 25.7 %; Mean Corpuscular HGB Conc 32.8 g/dL (30-55); Mean Corpuscular Hemoglobin 28.6 pg (27-33); Mean Corpuscular Volume 87.4 fl (85-98); Mean Platelet Volume 9.3 fL (7.4-10.4); Monocytes # 0.7 10^3/uL (0.2-0.9); Monocytes % 9.5 %; Neutrophils # 3.92 10^3/uL (1.8-7.7); Neutrophils % 56.5 %; Nucleated Red Blood Cells % 0 %; Platelet Count 169 10^3/cmm (157-399); Red Blood Count 4.68 10^6/uL (3.85-5.65); Red Cell Distribution Width 13.5 % (12.1-15.1); White Blood Count 6.93 10^3/uL (3.29-11.43)
[2024-11-04 14:02] LABS: Alanine Aminotransferase 11 U/L (0-33); Albumin Level 4.2 g/dL (3.5-5.2); Alkaline Phosphatase 85 U/L (35-105); Anion Gap 19.1 (5-19); Aspartate Amino Transferase 26 U/L (0-32); Blood Urea Nitrogen 32 mg/dL (8-23); Calcium 9.2 mg/dL (8.5-10.5); Carbon Dioxide 23 mmol/L (22-29); Chloride 99 mmol/L (98-107); Creatinine Clr Calc Pharmacy 32.0994; Globulin 2.9 g/dL (1.3-4.6); Glomerular Filtration Rate 44.5 mL/min (90-130); Glucose 140 mg/dL (65-115); Lactate Dehydrogenase 224 U/L (135-214); Osmolality Calculated 293 mOsm/kg (285-295); Potassium 4.1 mmol/L (3.5-5.1); Sodium 137 mmol/L (136-145); Total Bilirubin 0.6 mg/dL (0.15-1.2); Total Protein 7.1 g/dL (6.6-8.7); Uric Acid 7.9 mg/dL (2.4-5.7)
[2024-11-09 17:34] LABS: BCR ABL1 (IS) 0.005 (0.000); P210 BCR ALB1 DETECTED; P210 BCR ALB1 Yes Test Yes; Prior Results NG; Source blood
== END 2024-12-03 23:59 | disposition home or self-care (01) ==
PROVIDERS: PCP Family Medicine; Visit Provider Internal Medicine
DX: C92.10 Chronic myeloid leukemia, BCR/ABL-positive, not having achieved remission (principal); I42.9 Cardiomyopathy, unspecified; Z79.899 Other long term (current) drug therapy
CPT/HCPCS: 36415; 80053; 81206; 83615; 84550; 85025; 99213

== ENCOUNTER 2024-12-30 13:12 | Oncology outpatient (recurring) (ONCR) | payer MEDICARE, SELFPAY ==
[2024-12-30 13:51] LABS: Basophils % 0.7 %; Eosinophils # 0.3 10^3/uL (0.0-0.8); Eosinophils % 5.5 %; Hematocrit 36.7 % (36-47); Lymphocytes # 1.5 10^3/uL (0.8-4.8); Mean Corpuscular HGB Conc 33.2 g/dL (30-55); Mean Corpuscular Hemoglobin 28.8 pg (27-33); Mean Corpuscular Volume 86.8 fl (85-98); Mean Platelet Volume 9.4 fL (7.4-10.4); Monocytes # 0.6 10^3/uL (0.2-0.9); Monocytes % 10.9 %; Neutrophils # 2.95 10^3/uL (1.8-7.7); Neutrophils % 54.5 %; Nucleated Red Blood Cells % 0 %; Platelet Count 145 10^3/cmm (157-399); Red Blood Count 4.23 10^6/uL (3.85-5.65); Red Cell Distribution Width 14.2 % (12.1-15.1); White Blood Count 5.42 10^3/uL (3.29-11.43)
[2024-12-30 13:59] LABS: Reticulocyte % 1.7 % (0.5-2.0)
[2024-12-30 14:11] LABS: Alanine Aminotransferase 12 U/L (0-33); Alkaline Phosphatase 95 U/L (35-105); Anion Gap 15.6 (5-19); Aspartate Amino Transferase 23 U/L (0-32); Blood Urea Nitrogen 21 mg/dL (8-23); Calcium 9.6 mg/dL (8.5-10.5); Carbon Dioxide 22 mmol/L (22-29); Chloride 102 mmol/L (98-107); Globulin 2.7 g/dL (1.3-4.6); Glomerular Filtration Rate 49.2 mL/min (90-130); Glucose 142 mg/dL (65-115); Lactate Dehydrogenase 225 U/L (135-214); Osmolality Calculated 285 mOsm/kg (285-295); Potassium 4.6 mmol/L (3.5-5.1); Sodium 135 mmol/L (136-145); Total Bilirubin 0.4 mg/dL (0.15-1.2); Total Protein 6.7 g/dL (6.6-8.7)
== END 2024-12-31 23:59 | disposition home or self-care (01) ==
LOC: ONCMED 13:12
PROVIDERS: PCP Family Medicine; Visit Provider Internal Medicine
DX: C92.10 Chronic myeloid leukemia, BCR/ABL-positive, not having achieved remission (principal)
CPT/HCPCS: 36415; 80053; 81206; 83615; 85025; 85045; 88374

== ENCOUNTER 2025-01-06 13:56 | Oncology outpatient (recurring) (ONCR) | payer MEDICARE, SELFPAY | END 2025-01-31 23:59 | disposition home or self-care (01) | PROVIDERS: PCP Family Medicine; Visit Provider Internal Medicine | DX: C92.10 Chronic myeloid leukemia, BCR/ABL-positive, not having achieved remission (principal); I42.9 Cardiomyopathy, unspecified | CPT/HCPCS: 99213 ==

== ENCOUNTER → 2025-01-28 08:31 | Outpatient (BNVA) | payer MEDICARE, SELFPAY | PROVIDERS: PCP Family Medicine; Visit Provider Nurse Practitioner Family | DX: I25.10 Atherosclerotic heart disease of native coronary artery without angina pectoris (principal); R00.2 Palpitations; I50.21 Acute systolic (congestive) heart failure; I49.9 Cardiac arrhythmia, unspecified; Z86.79 Personal history of other diseases of the circulatory system; Z95.2 Presence of prosthetic heart valve; E78.5 Hyperlipidemia, unspecified; I73.9 Peripheral vascular disease, unspecified | CPT/HCPCS: 99214 ==

== ENCOUNTER 2025-02-01 13:09 | Outpatient (CLI) | payer MEDICARE, SELFPAY ==
[2025-02-01 13:49] LABS: Basophils % 0.7 %; Eosinophils # 0.3 10^3/uL (0.0-0.8); Eosinophils % 5.4 %; Hematocrit 41.1 % (36-47); Lymphocytes # 1.5 10^3/uL (0.8-4.8); Lymphocytes % 27.2 %; Mean Corpuscular HGB Conc 33.3 g/dL (30-55); Mean Corpuscular Volume 87.1 fl (85-98); Mean Platelet Volume 9.5 fL (7.4-10.4); Monocytes # 0.6 10^3/uL (0.2-0.9); Monocytes % 10.4 %; Neutrophils # 3.11 10^3/uL (1.8-7.7); Neutrophils % 55.9 %; Nucleated Red Blood Cells % 0 %; Platelet Count 195 10^3/cmm (157-399); Red Blood Count 4.72 10^6/uL (3.85-5.65); Red Cell Distribution Width 14.1 % (12.1-15.1); White Blood Count 5.56 10^3/uL (3.29-11.43)
[2025-02-01 13:57] LABS: Partial Thromboplastin Time 30.8 SECONDS (23.9-36.7)
[2025-02-01 14:13] LABS: Anion Gap 15.5 (5-19); Blood Urea Nitrogen 30 mg/dL (8-23); Calcium 9.6 mg/dL (8.5-10.5); Carbon Dioxide 25 mmol/L (22-29); Chloride 98 mmol/L (98-107); Glomerular Filtration Rate 40.6 mL/min (90-130); Glucose 152 mg/dL (65-115); NT Pro B Type Natriuretic Pept 1192 pg/mL (0-125); Osmolality Calculated 287 mOsm/kg (285-295); Potassium 4.5 mmol/L (3.5-5.1); Sodium 134 mmol/L (136-145)
== END 2025-02-01 13:10 | disposition home or self-care (01) ==
LOC: LAB 13:10
PROVIDERS: PCP Family Medicine; Visit Provider Nurse Practitioner Family
DX: I50.21 Acute systolic (congestive) heart failure (principal); R00.2 Palpitations; I49.9 Cardiac arrhythmia, unspecified; Z86.79 Personal history of other diseases of the circulatory system
CPT/HCPCS: 36415; 80048; 83880; 85025; 85730; 86850; 86900

== ENCOUNTER 2025-02-14 05:48 | Outpatient (CLI) | payer MEDICARE, SELFPAY ==
[2025-02-14 05:51] VITALS: BP 187/91; PULSE 70; RESP 18; TEMP 36.6; O2SAT 97; BMI 20.9
[2025-02-14] MEDS: diphenhydrAMINE 50 mg Capsule PO (06:26)
[2025-02-14 06:43] LABS: Anion Gap 18.1 (5-19); Blood Urea Nitrogen 39 mg/dL (8-23); Calcium 9.4 mg/dL (8.5-10.5); Carbon Dioxide 23 mmol/L (22-29); Chloride 99 mmol/L (98-107); Creatinine Clr Calc Pharmacy 26.3607; Glomerular Filtration Rate 34.4 mL/min (90-130); Glucose 140 mg/dL (65-115); Osmolality Calculated 294 mOsm/kg (285-295); Potassium 4.1 mmol/L (3.5-5.1); Sodium 136 mmol/L (136-145)
--- NOTE | 2025-02-14 07:24 | PC.NURSE ---
Dr. Cardoso cancelled patient procedure due to elevated creatinine.
--- NOTE | 2025-02-14 07:28 | P.PN_ITS ---
Subjective 2 Subjective: This patient came to the hospital today for elective cardiac catheterization. She had a repeat BMP which revealed a BUN 39 with a creatinine of 1.5. Apparently this has gone up from the previous study. I had a long discussion with this patient about her current condition, the procedure, possible risks and benefits with alternatives. According the patient, she has pain in the left side of the neck radiating to the jaws, once a month or so, happens when she lies down especially in the night. She has a baseline shortness of breath with activities. Her functional status has not changed for the last several months. She is still able to do the things that she has been doing. She has significant peripheral arterial disease with an LANEY of 0.7 bilaterally. Her LV ejection fraction has improved from 25% to 45% by echocardiogram in July of last year. Patient attributes this partly to change in the medication for her CML She has no fever, chills or cough. Medications: Medication Review Details: Current Medications Sodium Chloride (Sodium Chloride 0.9%) 1,000 mls @ 50 mls/hr IV .Q20H ONE Stop: 02/15/25 01:59 Last Admin: 02/14/25 05:51 Dose: Not Given Vitals/I&O/Wt Last Vital Signs Temp 97.9 F 02/14/25 05:51 Pulse 70 02/14/25 05:51 Resp 18 02/14/25 05:51 BP 187/91 02/14/25 05:51 Pulse Ox 97 02/14/25 05:51 O2 Del Method Room Air 02/14/25 05:51 Weight last 48 hrs Weight 104 lb Physical Exam 2 Narrative: GENERAL: The patient is alert and oriented times three. Not in any acute distress. HEENT: No significant pallor, icterus or lymphadenopathy.Oral cavity: There are no mucous membrane lesions. NECK: Trachea appears to be central. No masses noted. No JVD or thyromegaly appreciated. RESPIRATORY: Chest is symmetrical. No intercostals muscle retraction or any accessory muscle activation. There is no chest wall tenderness. Breath sounds are heard bilaterally. No rales or rhonchi heard. No evidence of any consolidation. BREASTS: Deferred. HEART: The heart sounds are normal. No S3 or S4. Ejection systolic murmur of 3 or 6 in the aortic area. No pericardial rub ABDOMEN: No vessel pulsations or distention. No tenderness. No organomegaly appreciated. Bowel sounds are normally heard. : Deferred. RECTAL: Deferred. LYMPHATIC: No lymphadenopathy noted in the neck. EXTREMITIES: The peripheral pulses are extremely weak bilaterally. 1-2+ edema of both lower extremities. No cyanosis. MUSCULOSKELETAL: No acute joint deformities or swelling SKIN: There are no significant rashes or ecchymosis NEUROPSYCHIATRIC: The patient is alert and oriented x3. Appears to be in a good mood. No tremors or rigidity noted. Data 02/14/25 06:12 Other Labs: Laboratory Last Values Sodium 136 mmol/L (136-145) 02/14/25 06:12 Potassium 4.1 mmol/L (3.5-5.1) 02/14/25 06:12 Chloride 99 mmol/L (98-107) 02/14/25 06:12 Carbon Dioxide 23 mmol/L (22-29) 02/14/25 06:12 Anion Gap 18.1 (5-19) 02/14/25 06:12 BUN 39 mg/dL (8-23) H 02/14/25 06:12 Creatinine 1.5 mg/dL (0.5-0.9) H 02/14/25 06:12 GFR Calculation 34.4 mL/min (90-130) L 02/14/25 06:12 Glucose 140 mg/dL (65-115) H 02/14/25 06:12 Calculated Osmolality 294 mOsm/kg (285-295) 02/14/25 06:12 Calcium 9.4 mg/dL (8.5-10.5) 02/14/25 06:12 A&P Assessment and plan (1) Hx of aortic valve replacement: (2) Atherosclerotic heart disease of [place] coronary artery with other forms of angina pectoris: (3) Dyslipidemia: (4) Congestive heart failure: Qualifiers: Heart failure chronicity: acute Heart failure type: systolic Qualified Code(s): I50.21 - Acute systolic (congestive) heart failure (5) Peripheral arterial disease: (6) Chronic kidney disease: Qualifiers: Chronic kidney disease stage: stage 3 (moderate) Chronic kidney disease stage 3 subtype: stage 3a (GFR 45-59) Qualified Code(s): N18.31 - Chronic kidney disease, stage 3a Plan I discussed with the patient in detail about the management options. In view of her high BUN/creatinine, she carries a higher risk for contrast-induced acute kidney injury and possible renal failure requiring dialysis. Also because of the severe peripheral artery disease, she also has a high risk for vascular injury with the procedure. Since she remains fairly stable with atypical symptoms and no change in the functional status it would be appropriate to optimize her medical treatment. She also has intolerance to Plavix After discussing in detail with the patient and her grandson the management options, a shared decision was made to hold off on the coronary angiogram at this point and continue the medical treatment. Patient understood the discussion as well. To better control her blood pressure, I may start her on hydralazine 25 mg p.o. 3 times daily. Proper use of the medication were also discussed with the patient. I may see her in the office in a month PDMP PDMP Reviewed: Not Reviewed Attestations 2 Medical Necessity Statement*: Discharge home today Appointment the [facility] in 1 month with me Coding Level of Care Code 59306 Diagnoses Hx of aortic valve replacement Z95.2 Atherosclerotic heart disease of [place] coronary artery with other forms of angina pectoris I25.118 Dyslipidemia E78.5 Acute systolic congestive heart failure I50.21 Heart failure chronicity: acute Heart failure type: systolic Peripheral arterial disease I73.9 Stage 3a chronic kidney disease N18.31 Chronic kidney disease stage: stage 3 (moderate) Chronic kidney disease stage 3 subtype: stage 3a (GFR 45-59)
== END 2025-02-14 07:30 | disposition home or self-care (01) ==
LOC: CCL 05:49
PROVIDERS: PCP Family Medicine; Visit Provider Internal Medicine Cardiovascular Disease
DX: Z53.8 Procedure and treatment not carried out for other reasons (principal); Z95.2 Presence of prosthetic heart valve; I25.118 Atherosclerotic heart disease of native coronary artery with other forms of angina pectoris; E78.5 Hyperlipidemia, unspecified; I50.21 Acute systolic (congestive) heart failure; I73.9 Peripheral vascular disease, unspecified; N18.31 Chronic kidney disease, stage 3a
CPT/HCPCS: 36415; 80048; J1644; J2250; J3010; J3490; J7030; J9999; Q0163

== ENCOUNTER 2025-04-14 11:54 | Oncology outpatient (recurring) (ONCR) | payer MEDICARE, SELFPAY ==
[2025-04-04 13:11] LABS: Basophils % 0.6 %; Eosinophils # 0.4 10^3/uL (0.0-0.8); Eosinophils % 6.1 %; Hematocrit 39.3 % (36-47); Lymphocytes # 1.6 10^3/uL (0.8-4.8); Lymphocytes % 23.3 %; Mean Corpuscular HGB Conc 33.3 g/dL (30-55); Mean Corpuscular Hemoglobin 29.5 pg (27-33); Mean Corpuscular Volume 88.5 fl (85-98); Mean Platelet Volume 9.5 fL (7.4-10.4); Monocytes # 0.6 10^3/uL (0.2-0.9); Monocytes % 8.9 %; Neutrophils # 4.09 10^3/uL (1.8-7.7); Neutrophils % 60.8 %; Nucleated Red Blood Cells % 0 %; Platelet Count 174 10^3/cmm (157-399); Red Blood Count 4.44 10^6/uL (3.85-5.65); Red Cell Distribution Width 13.7 % (12.1-15.1); White Blood Count 6.73 10^3/uL (3.29-11.43)
[2025-04-04 13:32] LABS: Alanine Aminotransferase 14 U/L (0-33); Albumin Level 4.2 g/dL (3.5-5.2); Alkaline Phosphatase 102 U/L (35-105); Aspartate Amino Transferase 24 U/L (0-32); Blood Urea Nitrogen 27 mg/dL (8-23); Carbon Dioxide 26 mmol/L (22-29); Chloride 99 mmol/L (98-107); Globulin 2.7 g/dL (1.3-4.6); Glomerular Filtration Rate 34.4 mL/min (90-130); Glucose 188 mg/dL (65-115); Magnesium 1.5 mg/dL (1.7-2.3); Osmolality Calculated 296 mOsm/kg (285-295); Phosphorus 3.7 mg/dL (2.5-4.5); Sodium 138 mmol/L (136-145); Total Bilirubin 0.5 mg/dL (0.15-1.2); Total Protein 6.9 g/dL (6.6-8.7); Uric Acid 7.9 mg/dL (2.4-5.7)
[2025-04-04 13:34] LABS: Anion Gap 17.4 (5-19); Lactate Dehydrogenase 245 U/L (135-214); Potassium 4.4 mmol/L (3.5-5.1)
[2025-04-07 20:40] LABS: BCR ABL1 (IS) 0.007 (0.000); P210 BCR ALB1 DETECTED; P210 BCR ALB1 Yes Test Yes; Prior Results NG; Source blood
== END 2025-05-02 23:59 | disposition home or self-care (01) ==
PROVIDERS: PCP Family Medicine; Visit Provider Internal Medicine
DX: Z08 Encounter for follow-up examination after completed treatment for malignant neoplasm (principal); Z85.6 Personal history of leukemia
CPT/HCPCS: 36415; 80053; 81206; 83615; 83735; 84100; 84550; 85025; 99214

== ENCOUNTER 2025-06-23 14:30 | Oncology outpatient (recurring) (ONCR) | payer MEDICARE, SELFPAY ==
[2025-06-09 13:13] LABS: Hematocrit 38.5 % (36-47); Hemoglobin 12.80 g/dL (11.27-16.99); Mean Corpuscular HGB Conc 33.2 g/dL (30-55); Mean Corpuscular Hemoglobin 29.0 pg (27-33); Mean Corpuscular Volume 87.3 fl (85-98); Nucleated Red Blood Cells % 0 %; Platelet Count 159 10^3/cmm (157-399); Red Blood Count 4.41 10^6/uL (3.85-5.65); White Blood Count 7.01 10^3/uL (3.29-11.43)
[2025-06-09 13:31] LABS: Alanine Aminotransferase 9 U/L (0-33); Albumin Level 4.1 g/dL (3.5-5.2); Alkaline Phosphatase 89 U/L (35-105); Anion Gap 14.8 (5-19); Aspartate Amino Transferase 19 U/L (0-32); Blood Urea Nitrogen 31 mg/dL (8-23); Calcium 9.1 mg/dL (8.5-10.5); Carbon Dioxide 23 mmol/L (22-29); Chloride 103 mmol/L (98-107); Globulin 2.7 g/dL (1.3-4.6); Glucose 165 mg/dL (65-115); Osmolality Calculated 292 mOsm/kg (285-295); Potassium 4.8 mmol/L (3.5-5.1); Sodium 136 mmol/L (136-145); Total Protein 6.8 g/dL (6.6-8.7)
[2025-06-23 14:40] LABS: Hematocrit 37.7 % (36-47); Hemoglobin 12.70 g/dL (11.27-16.99); Mean Corpuscular HGB Conc 33.7 g/dL (30-55); Mean Corpuscular Hemoglobin 28.8 pg (27-33); Mean Corpuscular Volume 85.5 fl (85-98); Nucleated Red Blood Cells % 0 %; Platelet Count 170 10^3/cmm (157-399); Red Blood Count 4.41 10^6/uL (3.85-5.65); White Blood Count 6.34 10^3/uL (3.29-11.43)
[2025-06-23 14:58] LABS: Alanine Aminotransferase 11 U/L (0-33); Albumin Level 4.1 g/dL (3.5-5.2); Alkaline Phosphatase 73 U/L (35-105); Anion Gap 15.4 (5-19); Aspartate Amino Transferase 20 U/L (0-32); Blood Urea Nitrogen 30 mg/dL (8-23); Calcium 8.9 mg/dL (8.5-10.5); Carbon Dioxide 23 mmol/L (22-29); Chloride 103 mmol/L (98-107); Creatinine Clr Calc Pharmacy 35.2978; Globulin 2.7 g/dL (1.3-4.6); Glucose 222 mg/dL (65-115); Magnesium 1.7 mg/dL (1.7-2.3); Osmolality Calculated 297 mOsm/kg (285-295); Potassium 4.4 mmol/L (3.5-5.1); Sodium 137 mmol/L (136-145); Total Protein 6.8 g/dL (6.6-8.7)
[2025-06-28 20:14] LABS: BCR ABL1 (IS) 0.011 (0.000); P210 BCR ALB1 DETECTED; P210 BCR ALB1 Yes Test Yes; Source blood
== END 2025-07-03 23:59 | disposition home or self-care (01) ==
PROVIDERS: Nurse Practitioner; PCP Family Medicine; Visit Provider Internal Medicine
DX: C92.10 Chronic myeloid leukemia, BCR/ABL-positive, not having achieved remission; Z53.9 Procedure and treatment not carried out, unspecified reason
CPT/HCPCS: 36415; 80053; 81206; 83615; 83735; 85025; 99213

== ENCOUNTER 2025-08-31 12:41 | Oncology outpatient (recurring) (ONCR) | payer MEDICARE, SELFPAY ==
--- NOTE | 2025-08-31 13:04 | PC.NURSE ---
Patient attended for a lab draw for a BCR ABL PCR Quant. Preauthorization notice appeared upon printing. [place] was consulted and verified the test could be done. Blood was sent to lab.
[2025-08-31 13:11] LABS: Hematocrit 39.4 % (36-47); Hemoglobin 13.40 g/dL (11.27-16.99); Mean Corpuscular HGB Conc 34.0 g/dL (30-55); Mean Corpuscular Hemoglobin 29.2 pg (27-33); Mean Corpuscular Volume 85.8 fl (85-98); Nucleated Red Blood Cells % 0 %; Platelet Count 187 10^3/cmm (157-399); Red Blood Count 4.59 10^6/uL (3.85-5.65); White Blood Count 6.42 10^3/uL (3.29-11.43)
[2025-08-31 13:26] LABS: Alanine Aminotransferase 11 U/L (0-33); Albumin Level 4.1 g/dL (3.5-5.2); Alkaline Phosphatase 89 U/L (35-105); Anion Gap 17.2 (5-19); Aspartate Amino Transferase 22 U/L (0-32); Blood Urea Nitrogen 29 mg/dL (8-23); Calcium 9.0 mg/dL (8.5-10.5); Carbon Dioxide 22 mmol/L (22-29); Chloride 99 mmol/L (98-107); Globulin 2.8 g/dL (1.3-4.6); Glucose 175 mg/dL (65-115); Osmolality Calculated 288 mOsm/kg (285-295); Potassium 4.2 mmol/L (3.5-5.1); Sodium 134 mmol/L (136-145); Total Protein 6.9 g/dL (6.6-8.7)
[2025-09-05 21:10] LABS: BCR ABL1 (IS) 0.009 (0.000); P210 BCR ALB1 DETECTED; P210 BCR ALB1 Yes Test Yes; Source whole blood
== END 2025-09-02 23:59 | disposition home or self-care (01) ==
PROVIDERS: PCP Family Medicine; Visit Provider Internal Medicine
DX: Z53.9 Procedure and treatment not carried out, unspecified reason; C92.10 Chronic myeloid leukemia, BCR/ABL-positive, not having achieved remission; Z95.2 Presence of prosthetic heart valve; N18.9 Chronic kidney disease, unspecified
CPT/HCPCS: 36415; 80053; 81206; 85025

== ENCOUNTER 2025-09-08 13:42 | Oncology outpatient (recurring) (ONCR) | payer MEDICARE, SELFPAY | END 2025-10-02 23:59 | disposition home or self-care (01) | PROVIDERS: PCP Family Medicine; Visit Provider Internal Medicine | DX: C92.10 Chronic myeloid leukemia, BCR/ABL-positive, not having achieved remission (principal); I42.9 Cardiomyopathy, unspecified | CPT/HCPCS: 99213 ==